=== PATIENT | female | born 1970 | race Caucasian/White ===

== ENCOUNTER 2017-08-19 20:26 | Inpatient (IN) | payer MEDICARE, OTHER ==
[2017-08-19 20:26] VITALS: BMI 37.2
[2017-08-20 00:59] LABS: URINE BILIRUBIN NEGATIVE (NEGATIVE); URINE BLOOD NEGATIVE (NEGATIVE); URINE GLUCOSE (UA) NEGATIVE (NEGATIVE); URINE LEUKOCYTE ESTERASE TRACE Leu/uL (NEGATIVE); URINE NITRATE NEGATIVE (NEGATIVE); URINE PROTEIN 100 mg/dL (<30 mg/dL); URINE UROBILINOGEN 0.2 E.U./dL (<1 E.U./dL)
[2017-08-20 01:00] LABS: BASO # 0.02 K/mm3 (0.0-2.0); BASO % 0.3 % (0.0-3.0); EOS # 0.1 (0.0-0.7); EOS % 0.8 % (1.5-5.0); GRAN # 3.97 (1.4-6.5); GRAN % 55.5 % (50.0-68.0); HEMOGLOBIN 12.8 g/dL (12.0-16.0); LYMPH # 2.7 (1.2-3.4); LYMPH % 37.3 % (22.0-35.0); MEAN CORPUSCULAR HEMOGLOBIN 30.2 pg (25.0-35.0); MEAN CORPUSCULAR HGB CONC 33.2 g/dl (31.0-37.0); MEAN PLATELET VOLUME 10.4 fl (7.0-11.0); MONO # 0.4 (0.1-0.6); MONO % 6.1 % (1.0-6.0); RBC 4.24 10^6/uL (3.5-6.1); RED CELL DISTRIBUTION WIDTH 12.1 % (11.5-14.5); WHITE BLOOD COUNT 7.2 10^3/ul (4.5-11.0)
[2017-08-20 01:05] LABS: URINE APPEARANCE SL CLOUDY (CLEAR); URINE COLOR YELLOW (YELLOW)
[2017-08-20 01:19] LABS: ACETAMINOPHEN < 10.0 ug/ml (10.0-20.0); SALICYLATE < 1 mg/dL (2.0-20.0)
[2017-08-20 01:20] LABS: URINE RBC 0 - 2 /hpf (0-2)
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
[2017-08-20 01:21] LABS: URINE BACTERIA MOD (NEG)
[2017-08-20 01:23] LABS: ALB/GLOB RATIO 1.3 (1.1-1.8); ALT/SGPT 19 U/L (7-56); AST/SGOT 21 U/L (14-36); BLOOD UREA NITROGEN 12 mg/dL (7-21); CALCIUM 9.2 mg/dL (8.4-10.5); GFR AFRICAN-AMERICAN > 60; GFR NON-AFRICAN AMERICAN > 60
[2017-08-20 01:29] LABS: BENZODIAZEPINES, UR NEGATIVE (NEGATIVE)
[2017-08-20 01:34] LABS: BARBITURATES, UR NEGATIVE (NEGATIVE); OPIATES, UR NEGATIVE (NEGATIVE); PHENCYCLIDINE, UR NEGATIVE (NEGATIVE)
[2017-08-20] MEDS ORDERED: Magnesium Hydroxide Susp 30 ml UD PO PRN (03:20)
[2017-08-20] MEDS ORDERED: Alum-Mag Hydrox-Simethicone Susp (30 mL) PO PRN (03:20)
[2017-08-20 04:47] VITALS: O2SAT 99
--- NOTE | 2017-08-20 05:58 | PCM.BM ---
Treatment Plan Problems - Problems identified on initial assessmt Altered thought process Date Initiated: 08/20/17 Time Initiated: 05:00 Assessment reference: NA Status: Active Priority: 2 Hopelessness/Helplessness Date Initiated: 08/20/17 Time Initiated: 05:00 Assessment reference: NA Status: Active Priority: 3 Feelings of Worthlessness Date Initiated: 08/20/17 Time Initiated: 05:00 Assessment reference: NA Status: Active Priority: 4 Anxiety Date Initiated: 08/20/17 Time Initiated: 05:00 Assessment reference: NA Status: Active Priority: 5 Ineffective coping Date Initiated: 08/20/17 Time Initiated: 05:00 Assessment reference: NA Status: Active Priority: 1 Treatment assets and liabiliti Patient Assests: cooperative, self-reliant, ADL independent, good support system , negotiates basic needs Patient Liabilities: live alone, medical problems - Milieu Protocol Maintain good personal hygiene: daily Encourage regular showers, every shift Remind patient to perform daily oral care, every shift Assist patient to perform ADL's Maintain personal safety: every shift Educate patient to report safety concerns to staff, every shift Monitor environment for contraband/sharps Medication safety: Monitor for expected outcome, potential side effects: every shift, Assess barriers to learning: every shift, Assess readiness for medication education: every shift Family Contact Family involvement: Family/SO is involved Family contact: Patient agrees to contact - Goals for Treatment Patient goals for treatment: Relief from burning sensation and reduce swelling of legs/feet. Discharge/Continuing Care - Education Needs Education Needs: Family Medication, Family Diagnosis/Disease Process, Family Coping Skills, Family Health Practices/Safety, Family Aftercare Safety Plan, Patient Medication, Patient Diagnosis/Disease Process, Patient Coping Skills, Patient Anger Management skills, Patient Placement options, Patient Community resources, Patient Activities of Daily Living, Patient Pain, Patient Nutrition, Patient Uses of Medical Equipment, Patient Health Practices/Safety, Patient Personal Hygiene/Grooming, Patient Aftercare Safety Plan, Patient Other - Discharge Discharge Criteria: Tolerates medication w/o severe side effects
[2017-08-20] MEDS: Levothyroxine 50 MCG TAB PO SCH (08:56)
--- NOTE | 2017-08-20 08:58 | RAD ---
HISTORY: PEs eval COMPARISON: Portable chest 02/13/2016. FINDINGS: LUNGS: No active pulmonary disease. PLEURA: No significant pleural effusion identified, no pneumothorax apparent. CARDIOVASCULAR: Normal. OSSEOUS STRUCTURES: No significant abnormalities. VISUALIZED UPPER ABDOMEN: Normal. OTHER FINDINGS: None. IMPRESSION: No interval acute cardiopulmonary disease appreciated.
[2017-08-20 09:48] LABS: GLUCOSE,FASTING 101 mg/dL (65-110); HDL CHOLESTEROL 46 mg/dL (29-60)
--- NOTE | 2017-08-20 09:48 | CARD ---
APPROVED REPORT EKG Measurement Heart [id number] <Conclusion> Normal sinus rhythm Possible Left atrial enlargement Nonspecific T wave abnormality
[2017-08-20 09:58] LABS: LDL CHOLESTEROL 134 mg/dL (0-129)
--- NOTE | 2017-08-21 06:24 | CON ---
DATE: HISTORY OF PRESENT ILLNESS: The patient is 46 years old. States she has not been feeling well lately. Her symptoms have recurred, she claims. She has been taking her medication, but not feeling well. Has been having difficulty in concentration. She states her mind keeps on racing. She states she takes her medication, but it is not working. PAST MEDICAL HISTORY: Significant for 1. Bipolar disorder. 2. History of hypertension. 3. Hyperlipidemia. 4. Hypothyroidism. SOCIAL HISTORY: She lives with her sister. Denies smoking, drinking or alcohol use. ALLERGIES: PATIENT IS ALLERGIC TO BLEACH AND CLOROX THAT GIVE HER RESPIRATORY SYMPTOMS. MEDICATIONS AT HOME: She is on Depakote and Seroquel. She uses Ambien 10 mg at bedtime, Paxil 30 mg daily and levothyroxine 50 mcg daily. REVIEW OF SYSTEMS: Significant for generalized malaise, feeling tired, no energy to do anything. PHYSICAL EXAMINATION: GENERAL: She is awake and alert. Able to communicate. VITAL SIGNS: She is afebrile. Pulse 77, respirations 18, blood pressure 126/93. LUNGS: Bilateral fair airflow. No rhonchi or crackle. HEART: S1, S2 audible. ABDOMEN: Soft, nontender. No rebound, no guarding. NEUROLOGIC: She is awake, alert, oriented. Able to communicate. LABORATORY DATA: WBC is 7.2, hemoglobin 12.8, hematocrit 38.6, platelet 233. Cholesterol 205. LDL is 134. Blood sugar is 120. Urinalysis is unremarkable. Urine tox is negative. RPR is nonreactive. ASSESSMENT: 1. Bipolar disorder. 2. Hypothyroidism. 3. Hyperlipidemia. PLAN: We can resume her Synthroid, psych medication as per psychiatrist. Thank you for consult. We will follow up. John Craig MD
[2017-08-21] MEDS: Levothyroxine 50 MCG TAB PO SCH (09:22)
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
--- NOTE | 2017-08-21 21:29 | PCM.PYCHPN ---
Psychiatric Progress Note - Psychiatric Progress Note Patient seen today, length of contact: 25 Patient Chief Complaint: Depression and disorganized thinking Problems Identified/Issues Discussed: Patient has schizoaffective disorder.oooooooooooooooooo presently upset that his has a greater realization she will be losing her house. o this also lost her job. o still grieving over the loss of her father in March. oooooooooooooooooooooooooooooooooooooooooooooooooooooooooooooooooooooooooooooooo oooooooooooooooooooooooooooooooooooooooooooooooollllllllllllllllllllllllllllllll lllllllllllllllllllllllllllllllllllllllllllllllllloooooooooooooooooooooooooooooo ooooooooo ooooooooooo Medical Problems: Hypothyroidism, hypertension Diagnostic Results: Reviewed her laboratory results from today not available DSM 5 Symptoms Update: Meds anxious, depressed, religiously preoccupied.i yet affect appears to be somewhat brighter than yesterday. Interviewed in treatment team. [id number]iiiiiiiiiiiiiiiiiiiiiiiiiiiiiiiiiiiik Medication Change: No Medical Record Reviewed: Yes Consults ordered or reviewed: Review 8D Mental Status Examination - Cognitive Function Orientation: Person, Place, Situation, Time Memory: Intact Attention: WNL Concentration: Poor Association: WNL Fund of Knowledge: [facility] Decription of patient's judgement and insights: Skewed by her delusional thinkingmmmmmmmmmmmmmmmmmmmmmmmmmmm - Mood Mood: Depressed - Affect Affect: Constricted - Speech Speech: Soft - Formal Thought Process Formal Thought Process: Hallucinations, Delusions, Paranoia Psychotic Thoughts and Behaviors: Has intermittent auditory hallucinations - Suicidal Ideation Plan: vague - Homicidal Ideation Homicidal Ideation: No Goal/Treatment Plan - Goal/Treatment Plan Need for Continued Stay: Remain at risks for inpatient hospitalization, Severe depression anxiety Progress Toward Problem(s) and Goals/Treatment Plan: Affect somewhat brighter today still remains self emersed with delusional thinking - Smoking Cessation Smoking Cessation Initiated: No Reason for not providing: Nonsmoker
--- NOTE | 2017-08-21 21:32 | PCM.BM ---
Treatment Plan Problems - Problems identified on initial assessmt Ineffective coughing Priority: 1 Altered thought process Date Initiated: 08/20/17 Time Initiated: 05:00 Assessment reference: NA Status: Active Priority: 2 Hopelessness/Helplessness Date Initiated: 08/20/17 Time Initiated: 05:00 Assessment reference: NA Status: Active Priority: 3 Feelings of Worthlessness Date Initiated: 08/20/17 Time Initiated: 05:00 Assessment reference: NA Status: Active Priority: 4 Anxiety Date Initiated: 08/20/17 Time Initiated: 05:00 Assessment reference: NA Status: Active Priority: 5 Ineffective coping Date Initiated: 08/20/17 Time Initiated: 05:00 Assessment reference: NA Status: Active Priority: 1 Treatment assets and liabiliti Patient Assests: cooperative, self-reliant, ADL independent, good support system , negotiates basic needs Patient Liabilities: live alone, medical problems - Diagnosis (1) Schizoaffective disorder Status: Acute Interventions: 08/21/17 21:31 * Assess/adjust medications daily and /or as needed * Discuss risks, benefits, side effects and alternatives of medications * See patient on an individual basis 7x/week to assess level of suicidal thoughts * 08/21/17 21:32 jjjjjjjjjjjjjjjjjjjjjjjjjjjjjjjjjjjjjjjjjjjjjjjjjjjjjjjjjjjjjjjjjjjjjjjjjjjjjjjj jjjjjjjjjjjjjjjjjjjjjjjjjjjjjjjjjj jjjjjjjjjjjjjjjjjjjjjjjjjjjjjjjjjjjjjjjjjjjjjjjjjjjjjjjjjjjjjjjjjjjjjjjjjjjjjjjj jjjjjjjjjjjjjjjjjjjjjjjjjjjjjjjjjjjjjjjjjjjjjjjjjjjjjjjjjjjjjjjjjjjjjjjjjjjjjjjj jjjjjjjjjjjjjjjjjjjjjjjjjjjjjjjjjjjjjjjj jjjjjjjjjjjjjjjjjjjjjj (2) Suicidal ideation Status: Acute Interventions: 08/21/17 21:31 jjjjjjjjjjjjjjjjjjjjjjjjjjjjjjjjjjjjjjjjjjj - Milieu Protocol Maintain good personal hygiene: daily Encourage regular showers, every shift Remind patient to perform daily oral care, every shift Assist patient to perform ADL's Maintain personal safety: every shift Educate patient to report safety concerns to staff, every shift Monitor environment for contraband/sharps Medication safety: Monitor for expected outcome, potential side effects: every shift, Assess barriers to learning: every shift, Assess readiness for medication education: every shift Milieu Narrative: Affect somewhat brighter today still remains self emersed with delusional thinking Family Contact Family involvement: Famliy/SO not involved - Goals for Treatment Patient goals for treatment: Relief from burning sensation and reduce swelling of legs/feet. Discharge/Continuing Care - Education Needs Education Needs: Family Medication, Family Diagnosis/Disease Process, Family Coping Skills, Family Health Practices/Safety, Family Aftercare Safety Plan, Patient Medication, Patient Diagnosis/Disease Process, Patient Coping Skills, Patient Anger Management skills, Patient Placement options, Patient Community resources, Patient Activities of Daily Living, Patient Pain, Patient Nutrition, Patient Uses of Medical Equipment, Patient Health Practices/Safety, Patient Personal Hygiene/Grooming, Patient Aftercare Safety Plan, Patient Other - Discharge Discharge Criteria: Tolerates medication w/o severe side effects - Treatment Team Participation Patient/Family/SO Statement: Affect somewhat brighter today still remains self emersed with delusional thinking
[2017-08-22] MEDS: Levothyroxine 50 MCG TAB PO SCH (08:28)
--- NOTE | 2017-08-22 14:12 | PCM.PYCHPN ---
Psychiatric Progress Note - Psychiatric Progress Note Patient seen today, length of contact: 25 Patient Chief Complaint: Depression and disorganized thinking Problems Identified/Issues Discussed: Patient has schizoaffective disorder.oooooooooooooooooo presently upset that his has a greater realization she will be losing her house. o this also lost her job. o still grieving over the loss of her father in March. oooooooooooooooooooooooooooooooooooooooooooooooooooooooooooooooooooooooooooooooo oooooooooooooooooooooooooooooooooooooooooooooooollllllllllllllllllllllllllllllll lllllllllllllllllllllllllllllllllllllllllllllllllloooooooooooooooooooooooooooooo ooooooooo ooooooooooo Medical Problems: Hypothyroidism, hypertension Diagnostic Results: Reviewed her laboratory results from today not available DSM 5 Symptoms Update: Mood and affect appears brighter. Less constricted. Appears less self emersed and less self punitive. Does not appear to be preoccupied with internal/ psychotic thoughts at this moment. Medication Change: No Medical Record Reviewed: Yes Mental Status Examination - Cognitive Function Orientation: Person, Place, Situation, Time Memory: Intact Attention: WNL Concentration: WNL Association: [facility] Fund of Knowledge: [facility] Decription of patient's judgement and insights: Skewed by her delusional thinkingmmmmmmmmmmmmmmmmmmmmmmmmmmm - Mood Mood: Depressed, Neutral - Affect Affect: Constricted - Speech Speech: Soft - Formal Thought Process Formal Thought Process: Hallucinations, Delusions, Paranoia Psychotic Thoughts and Behaviors: Has intermittent auditory hallucinations. On 08/22 appears to be more interactive, less preoccupied internally. Indicates she is thinking of moving into a different apartment. Would like to separate her mother from her sister. Is talking about going back to [place] for a period of time. This seems to be less overwhelmed and more accepting of her present state - Homicidal Ideation Homicidal Ideation: No Goal/Treatment Plan - Goal/Treatment Plan Need for Continued Stay: Remain at risks for inpatient hospitalization, Severe depression anxiety Progress Toward Problem(s) and Goals/Treatment Plan: Affect somewhat brighter today still remains self emersed with delusional thinking On August 22 still appears to be at risk. This self emersed but less so. Is making plans for the future which is a good sign. Is capable of engaging in some spontaneous interaction which is also good.
[2017-08-23] MEDS: Levothyroxine 50 MCG TAB PO SCH (08:57)
--- NOTE | 2017-08-23 09:22 | PCM.PYCHPN ---
Psychiatric Progress Note - Psychiatric Progress Note Patient seen today, length of contact: 25 min Patient Chief Complaint: "feeling okay, good" Problems Identified/Issues Discussed: I reviewed assessment and recent notes. Patient was interviewed at bedside. She appears a little unkempt, guarded and mildly disinterested in my questioning though well-oriented and calm. Patient is well-oriented and reports that she is "feeling okay, good". Responses are goal-directed and relevant to questioning. She denies any new concerns, discomfort or pain. Patient is tolerating her medications and indicates that she slept well. Affect is flat. She doesn't appear to be responding to internal stimuli and she denies hallucinations. Continues to deny SI or HI. Delusions were not elicited during this initial interview. Patient has been in good control on the unit. There were no behavioral issues overnight. Diagnostic Results: Schizoaffective Disorder Medication Change: No Medical Record Reviewed: Yes Mental Status Examination - Cognitive Function Orientation: Person, Place, Situation, Time Memory: Intact Attention: WNL Concentration: WNL Association: WNL Fund of Knowledge: WNL - Mood Mood: Depressed ("feeling okay, good"), Neutral - Affect Affect: Constricted, Flat - Speech Speech: Soft - Formal Thought Process Formal Thought Process: Hallucinations (denies), Delusions, Paranoia - Homicidal Ideation Homicidal Ideation: No Goal/Treatment Plan - Goal/Treatment Plan Need for Continued Stay: Remain at risks for inpatient hospitalization, Severe depression anxiety Progress Toward Problem(s) and Goals/Treatment Plan: c/w current tx and plan No new weekend labs thus far Vitals reviewed and noted below: Selected Entries 08/23/17 07:35 Temperature 97.8 F Pulse Rate 76 Respiratory 20 Rate Blood Pressure 109/64
[2017-08-24] MEDS: Levothyroxine 50 MCG TAB PO SCH (08:50)
--- NOTE | 2017-08-24 11:03 | PCM.PYCHPN ---
Psychiatric Progress Note - Psychiatric Progress Note Patient seen today, length of contact: 25 min Patient Chief Complaint: "feeling okay, good" Problems Identified/Issues Discussed: I reviewed recent notes and interviewed patient at bedside. She appears a little unkempt, guarded and mildly disinterested in my questioning though well- oriented and calm. Patient is well oriented and reports that she is feeling okay , anxiety is down a lot. Responses are goal-directed and relevant to questioning. She denies any new concerns, discomfort or pain. Patient is tolerating her medications and indicates that she slept better last night. Affect is flat. She doesn't appear to be responding to internal stimuli and she denies hallucinations. Continues to deny SI or HI. Delusions were not elicited during this interview. Patient has been in good control. Visible on the unit, watching tv and intermittently social with peers. There were no behavioral issues over the weekend. Diagnostic Results: Schizoaffective Disorder Medication Change: No Medical Record Reviewed: Yes Mental Status Examination - Cognitive Function Orientation: Person, Place, Situation, Time Memory: Intact Attention: WNL Concentration: WNL Association: WNL Fund of Knowledge: WNL - Mood Mood: Depressed ("feeling okay, good"), Neutral - Affect Affect: Constricted, Flat - Speech Speech: Soft - Formal Thought Process Formal Thought Process: Hallucinations (denies), Delusions, Paranoia - Homicidal Ideation Homicidal Ideation: No Goal/Treatment Plan - Goal/Treatment Plan Need for Continued Stay: Remain at risks for inpatient hospitalization, Severe depression anxiety Progress Toward Problem(s) and Goals/Treatment Plan: c/w current tx and plan No new weekend labs thus far Vitals reviewed and noted below: Selected Entries 08/24/17 07:14 Temperature 98.3 F Pulse Rate 79 Respiratory 20 Rate Blood Pressure 123/86
[2017-08-25] MEDS: Levothyroxine 50 MCG TAB PO SCH (09:13)
--- NOTE | 2017-08-25 12:27 | PCM.PYCHPN ---
Psychiatric Progress Note - Psychiatric Progress Note Patient seen today, length of contact: 25 min Patient Chief Complaint: Depression and disorganized thinking Problems Identified/Issues Discussed: Patient has schizoaffective disorder.oooooooooooooooooo presently upset that his has a greater realization she will be losing her house. o this also lost her job. o still grieving over the loss of her father in March. oooooooooooooooooooooooooooooooooooooooooooooooooooooooooooooooooooooooooooooooo oooooooooooooooooooooooooooooooooooooooooooooooollllllllllllllllllllllllllllllll lllllllllllllllllllllllllllllllllllllllllllllllllloooooooooooooooooooooooooooooo ooooo ooooooooooooooo Medical Problems: Hypothyroidism, hypertension Diagnostic Results: Reviewed her laboratory results from today not available DSM 5 Symptoms Update: Mood and affect improving. Patient appears more focused and more interactive at least with me. Seems more spontaneous and less self immersed. Does not appear to be responding to internal stimuli Medication Change: No Medical Record Reviewed: Yes Consults ordered or reviewed: Review 8D Mental Status Examination - Cognitive Function Orientation: Person, Place, Situation, Time Memory: Intact Attention: WNL Concentration: WNL Association: [facility] Fund of Knowledge: WNL - Mood Mood: Depressed ("feeling okay, good"), Neutral - Affect Affect: Constricted, Flat - Speech Speech: Appropriate, Soft - Formal Thought Process Formal Thought Process: Hallucinations (denies), Delusions, Paranoia - Suicidal Ideation Suicidal Ideation: No - Homicidal Ideation Homicidal Ideation: No Goal/Treatment Plan - Goal/Treatment Plan Need for Continued Stay: Remain at risks for inpatient hospitalization, Severe depression anxiety Progress Toward Problem(s) and Goals/Treatment Plan: Affect somewhat brighter today still remains self emersed with delusional thinking On August 22 still appears to be at risk. This self emersed but less so. Is making plans for the future which is a good sign. Is capable of engaging in some spontaneous interaction which is also good. On August appears to be more spontaneous and more interactive.
[2017-08-26] MEDS: Levothyroxine 50 MCG TAB PO SCH (08:50)
--- NOTE | 2017-08-26 16:55 | PN ---
DATE: The patient is a 46-year-old Arabic female with a schizoaffective disorder. Twenty five minutes were spent with the patient. She complains of depression and suicidal ideation. She is dealing with the of her father, homelessness, with her fantasy punctured with regards to the inviolability of her right to live in her home even though she was not paying mortgage or taxes Her medical problems include hypertension, hyperlipidemia, hypothyroidism. There has been no change in her medication at this time. Her medical record including consultations were reviewed. She is oriented to three spheres; her memory is intact as is her attention, concentration, association, fund of knowledge. Her affect has improved and states that she is not depressed and seems to be more spontaneous. Her speech is appropriate and goal directed. She is not overtly psychotic or paranoid at this juncture nor is she suicidal or homicidal. She needs to be in the hospital still because of her depression and anxiety. Her sister opines that she should be on an injectable medication although my sense is that the patient is compliant with her Seroquel 300 mg at bedtime and 150 mg in the morning. I will discuss with sister injectable possibilities of a long-term nature, but with the understanding that the patient will have to improve (I discussed this with the patient who does appear to be improving with this option). What is in question still is where the patient will be living upon her discharge. I anticipate the patient will be ready for discharge at the end of this week Handy Holbrook MD/ PhD
[2017-08-27] MEDS: Levothyroxine 50 MCG TAB PO SCH (08:57)
[2017-08-27] MEDS ORDERED: Home Med 1 UNIT PO SCH ×2 (12:00)
--- NOTE | 2017-08-27 15:46 | PCM.PYCHPN ---
Psychiatric Progress Note - Psychiatric Progress Note Patient seen today, length of contact: 25 min Patient Chief Complaint: Depression and disorganized thinking Problems Identified/Issues Discussed: Patient has schizoaffective disorder.oooooooooooooooooo presently upset that his has a greater realization she will be losing her house. o this also lost her job. o still grieving over the loss of her father in March. oooooooooooooooooooooooooooooooooooooooooooooooooooooooooooooooooooooooooooooooo oooooooooooooooooooooooooooooooooooooooooooooooollllllllllllllllllllllllllllllll lllllllllllllllllllllllllllllllllllllllllllllllllloooooooooooooooooooooooooooooo ooooo ooooooooooooooo Medical Problems: Hypothyroidism, hypertension Diagnostic Results: Reviewed her laboratory results from today not available DSM 5 Symptoms Update: Patient tearful again today dwelling on what she is going to do upon discharge. Speaks about going to live with her mother in [facility] for several months and applying for senior citizen housing in [place] I discussed with sister the advisability of putting patient on long acting depot antipsychotic injectable medication Medication Change: Yes (in preparation for get suspended injections) Medical Record Reviewed: Yes Consults ordered or reviewed: Review 8D Mental Status Examination - Cognitive Function Orientation: Person, Place, Situation, Time Memory: Intact Attention: WNL Concentration: WNL Association: WNL Fund of Knowledge: WNL - Mood Mood: Depressed ("feeling okay, good"), Neutral - Affect Affect: Constricted, Flat - Speech Speech: Appropriate, Soft - Formal Thought Process Formal Thought Process: Hallucinations (denies), Delusions, Paranoia - Suicidal Ideation Suicidal Ideation: No - Homicidal Ideation Homicidal Ideation: No Goal/Treatment Plan - Goal/Treatment Plan Need for Continued Stay: Remain at risks for inpatient hospitalization, Severe depression anxiety Progress Toward Problem(s) and Goals/Treatment Plan: Affect somewhat brighter today still remains self emersed with delusional thinking On August 22 still appears to be at risk. This self emersed but less so. Is making plans for the future which is a good sign. Is capable of engaging in some spontaneous interaction which is also good. On August appears to be more spontaneous and more interactive. On August 27 will start eating in [place] in preparation for Invega Sustenna injections. Patient making preparations for going to [place] for a period of time before seeking senior citizen housing in this country To meet with sister at family meeting tomorrow
[2017-08-28] MEDS ORDERED: INVEGA PO SCH (08:00)
[2017-08-28] MEDS: INVEGA 1.5 MG PO SCH (08:17)
[2017-08-28] MEDS: Levothyroxine 50 MCG TAB PO SCH (08:22)
--- NOTE | 2017-08-28 18:53 | PCM.PYCHPN ---
Psychiatric Progress Note - Psychiatric Progress Note Patient seen today, length of contact: 25 min Patient Chief Complaint: Depression and disorganized thinking Problems Identified/Issues Discussed: Patient has schizoaffective disorder.oooooooooooooooooo presently upset that his has a greater realization she will be losing her house. o this also lost her job. o still grieving over the loss of her father in March. oooooooooooooooooooooooooooooooooooooooooooooooooooooooooooooooooooooooooooooooo oooooooooooooooooooooooooooooooooooooooooooooooollllllllllllllllllllllllllllllll lllllllllllllllllllllllllllllllllllllllllllllllllloooooooooooooooooooooooooooooo ooooo ooooooooooooooo Medical Problems: Hypothyroidism, hypertension Diagnostic Results: Reviewed her laboratory results from today not available DSM 5 Symptoms Update: Alert, oriented to 3 spheres but seems more withdrawn and depressed. Medication Change: No (in preparation for get suspended injections) Medical Record Reviewed: Yes Mental Status Examination - Cognitive Function Orientation: Person, Place, Situation, Time Memory: Intact Attention: WNL Concentration: WNL Association: [facility] Fund of Knowledge: [facility] - Mood Mood: Depressed ("feeling okay, good"), Neutral - Affect Affect: Constricted, Flat - Speech Speech: Appropriate, Soft - Formal Thought Process Formal Thought Process: Hallucinations (denies), Delusions, Paranoia - Suicidal Ideation Suicidal Ideation: No - Homicidal Ideation Homicidal Ideation: No Goal/Treatment Plan - Goal/Treatment Plan Need for Continued Stay: Remain at risks for inpatient hospitalization, Severe depression anxiety Progress Toward Problem(s) and Goals/Treatment Plan: Affect somewhat brighter today still remains self emersed with delusional thinking On August 22 still appears to be at risk. This self emersed but less so. Is making plans for the future which is a good sign. Is capable of engaging in some spontaneous interaction which is also good. On August appears to be more spontaneous and more interactive. On August 27 will start eating in [place] in preparation for Invega Sustenna injections. Patient making preparations for going to [place] for a period of time before seeking senior citizen housing in this country To meet with sister at family meeting tomorrow on August 28 On August 28 by the treatment team with the patient's mother and sister. Patient appears more withdrawn. Reviewed with patient and family her plans for the future which includes going to [place] to live with mother for a period of time. We'll work on securing in [place] since then [facility] and [place] including possibly speaking with her psychiatrist in [facility] Patient appears more withdrawn and depressed today and religiously preoccupied; a symptom that is frequently a harbinger of more problematic behaviors and thoughts to come
[2017-08-29] MEDS: Levothyroxine 50 MCG TAB PO SCH (09:39)
[2017-08-29] MEDS: INVEGA 1.5 MG PO SCH (09:39)
--- NOTE | 2017-08-29 13:42 | PCM.PYCHPN ---
Psychiatric Progress Note - Psychiatric Progress Note Patient seen today, length of contact: 25 min Patient Chief Complaint: Depression and disorganized thinking Problems Identified/Issues Discussed: Patient has schizoaffective disorder.oooooooooooooooooo presently upset that his has a greater realization she will be losing her house. o this also lost her job. o still grieving over the loss of her father in March. oooooooooooooooooooooooooooooooooooooooooooooooooooooooooooooooooooooooooooooooo oooooooooooooooooooooooooooooooooooooooooooooooollllllllllllllllllllllllllllllll lllllllllllllllllllllllllllllllllllllllllllllllllloooooooooooooooooooooooooooooo ooooo ooooooooooooooo Medical Problems: Hypothyroidism, hypertension Diagnostic Results: Reviewed her laboratory results from today not available DSM 5 Symptoms Update: Patient has unfortunately deteriorated mentally. Had become more depressed and withdrawn for the past 2 days, now seems more paranoid, agitated with a greater loss of what and already diminished insight and judgment. Feel some staff are conspiring against her Is worried about a court appearance this Friday for a speeding ticket. He is also concerned that the jig grinder set up operator's office will show up at her home regarding her pending foreclosure I had earlier plan to discharge the patient over this weekend about her deteriorating mental status puts her at greater risk and I am not able to pursue this patient is in the midst of being switched from Seroquel to [place] for an eventual [place] ISMAEL TENS and a injection schedule. However we will increase Seroquel once again as the patient's deterioration seems to be chronologically related to a lowering of her previous Seroquel dosage. Medication Change: Yes (Will transiently increase Seroquel level again as patient is doing poorly w) Medical Record Reviewed: Yes Mental Status Examination - Cognitive Function Orientation: Person, Place, Situation, Time Memory: Intact Attention: WNL Concentration: WNL Association: WNL Fund of Knowledge: WNL Decription of patient's judgement and insights: Patient in much denial - Mood Mood: Depressed ("feeling okay, good"), Neutral - Affect Affect: Constricted, Flat, Depressed - Speech Speech: Appropriate, Soft - Formal Thought Process Formal Thought Process: Hallucinations (denies), Delusions, Paranoia - Suicidal Ideation Suicidal Ideation: No - Homicidal Ideation Homicidal Ideation: No Goal/Treatment Plan - Goal/Treatment Plan Need for Continued Stay: Remain at risks for inpatient hospitalization, Severe depression anxiety Progress Toward Problem(s) and Goals/Treatment Plan: Affect somewhat brighter today still remains self emersed with delusional thinking On August 22 still appears to be at risk. This self emersed but less so. Is making plans for the future which is a good sign. Is capable of engaging in some spontaneous interaction which is also good. On August appears to be more spontaneous and more interactive. On August 27 will start eating in [place] in preparation for Invega Sustenna injections. Patient making preparations for going to [place] for a period of time before seeking senior citizen housing in this country To meet with sister at family meeting tomorrow on August 28 On August 28 by the treatment team with the patient's mother and sister. Patient appears more withdrawn. Reviewed with patient and family her plans for the future which includes going to [place] to live with mother for a period of time. We'll work on securing in [place] since then injections and [place] including possibly speaking with her psychiatrist in [facility] Patient appears more withdrawn and depressed today and religiously preoccupied; a symptom that is frequently a harbinger of more problematic behaviors and thoughts to come On August 29 We'll have to delay pending discharge and once again increase Seroquel while maintaining on in [place] patient's deteriorated with increasing anxiety, depression, paranoia and introversion. Have discussed with delinquency prevention social worker. We'll discuss with sister. Also discussed with covering doctor andrew [facility]
--- NOTE | 2017-08-30 09:14 | PCM.PYCHPN ---
Psychiatric Progress Note - Psychiatric Progress Note Patient seen today, length of contact: 25 min Patient Chief Complaint: "depressed and paranoid" Problems Identified/Issues Discussed: Patient is known to me from interviews last weekend. I reviewed recent notes wihich indicate that discharge was delayed due to deteriorating condition. Specifically patient is demonstrating increase in anxiety, depression, paranoia and introversion. Patient has been difficult on the unit recently. Irritable when she wasn't given extra ambien yesterday. She also provoked conflict when she changed the tv channel in the dayroom. Patient needed Ativan 0.5 mg x1 for agitation last night. I saw patient at bedside. She appears unkempt and guarded. She continues to report depression and anxiety. Denies hallucinations but really "feels" that people are talking about her. She doesn't fear that others are plotting to harm her. Denies belief there are monitoring devices on her. Affect is flat and disengaged. Responses remain relevant to questioning. She denies any new discomfort or pain. Patient is tolerating her medications and indicates that she slept well. She doesn't appear to be responding to internal stimuli and continues to deny SI or HI. Patient remains unpredictable and requires continued inpatient monitoring. Diagnostic Results: Schizoaffective Disorder Medication Change: Yes (Will transiently increase Seroquel level again as patient is doing poorly w) Medical Record Reviewed: Yes Mental Status Examination - Cognitive Function Orientation: Person, Place, Situation, Time Memory: Intact Attention: WNL Concentration: WNL Association: [facility] Fund of Knowledge: [facility] - Mood Mood: Depressed ("depressed and paranoid"), Neutral - Affect Affect: Constricted, Flat, Depressed, Other (labile) - Speech Speech: Appropriate, Soft - Formal Thought Process Formal Thought Process: Hallucinations (denies), Delusions, Paranoia - Suicidal Ideation Suicidal Ideation: No - Homicidal Ideation Homicidal Ideation: No Goal/Treatment Plan - Goal/Treatment Plan Need for Continued Stay: Remain at risks for inpatient hospitalization, Severe depression anxiety Progress Toward Problem(s) and Goals/Treatment Plan: c/w current tx and plan No new weekend labs thus far Vitals reviewed and noted below: Selected Entries 08/30/17 08:09 Temperature 98.3 F Pulse Rate 67 Respiratory 18 Rate Blood Pressure 111/67
[2017-08-30] MEDS: Levothyroxine 50 MCG TAB PO SCH (09:17)
[2017-08-30] MEDS: INVEGA 1.5 MG PO SCH (09:22)
[2017-08-31] MEDS: Levothyroxine 50 MCG TAB PO SCH (08:44)
[2017-08-31] MEDS: INVEGA 1.5 MG PO SCH ×2 (08:46→15:22)
--- NOTE | 2017-08-31 09:09 | PCM.PYCHPN ---
Psychiatric Progress Note - Psychiatric Progress Note Patient seen today, length of contact: 25 min Patient Chief Complaint: She continues to report depression but "feels positive I guess" Problems Identified/Issues Discussed: Patient is known to me from interviews last weekend. I reviewed recent notes which indicate that discharge was delayed due to deteriorating condition. Specifically patient was demonstrating increase in anxiety, depression, paranoia and introversion over the prior week. This weekend patient has been reclusive and irritable on the unit. Unhappy when she wasn't given extra ambien on Friday. She also provoked conflict when she changed the tv channel in the dayroom. Patient needed Ativan 0.5 mg x1 for agitation that night. Staff notes also indicate that patient only briefly attends groups. She provides minimal input and does not interact with peers I saw patient at bedside this morning. She appears unkempt and guarded. She continues to report depression but "feels positive I guess". Denies hallucinations "that was a few days ago" but still believes people are talking about her. Patient seems less focused on her paranoia today. She denies belief that she is being monitored or that others are plotting to harm her. Affect is flat and disengaged. Responses remain relevant to questioning. Patient denies any new discomfort or pain. Patient is tolerating her medications and indicates that she slept well last night. She doesn't appear to be responding to internal stimuli and continues to deny SI or HI. Patient remains unpredictable and requires continued inpatient monitoring. Diagnostic Results: Schizoaffective Disorder Medication Change: Yes (Will transiently increase Seroquel level again as patient is doing poorly w) Medical Record Reviewed: Yes Mental Status Examination - Cognitive Function Orientation: Person, Place, Situation, Time Memory: Intact Attention: WNL Concentration: WNL Association: [facility] Fund of Knowledge: [facility] - Mood Mood: Depressed ( She continues to report depression but "feels positive I guess "), Neutral - Affect Affect: Constricted, Flat, Depressed, Other (labile) - Speech Speech: Appropriate, Soft - Formal Thought Process Formal Thought Process: Hallucinations (denied this weekend), Delusions, Paranoia - Suicidal Ideation Suicidal Ideation: No - Homicidal Ideation Homicidal Ideation: No Goal/Treatment Plan - Goal/Treatment Plan Need for Continued Stay: Remain at risks for inpatient hospitalization, Severe depression anxiety Progress Toward Problem(s) and Goals/Treatment Plan: c/w current tx and plan No new weekend labs Vitals reviewed and noted below: Selected Entries 08/31/17 07:38 Temperature 98.2 F Pulse Rate 68 Respiratory 20 Rate Blood Pressure 99/62 L
[2017-09-01] MEDS: Levothyroxine 50 MCG TAB PO SCH (09:12)
[2017-09-01] MEDS: INVEGA 1.5 MG PO SCH (09:13)
--- NOTE | 2017-09-01 16:49 | PCM.BM ---
<Juliette Schofieldda - Last Filed: 09/01/17 16:46> Treatment Plan Problems - Problems identified on initial assessmt Ineffective coughing Priority: 1 Comment: pt gets anxious when se thinks of her house foreclosure Altered thought process Date Initiated: 08/20/17 Time Initiated: 05:00 Assessment reference: NA Status: Active Priority: 2 Comment: thoughts is improving ,.denies s/v hallucination Hopelessness/Helplessness Date Initiated: 08/20/17 Time Initiated: 05:00 Assessment reference: NA Status: Active Priority: 3 Comment: denies Feelings of Worthlessness Date Initiated: 08/20/17 Time Initiated: 05:00 Assessment reference: NA Status: Active Priority: 4 Anxiety Date Initiated: 08/20/17 Time Initiated: 05:00 Assessment reference: NA Status: Active Priority: 5 Ineffective coping Date Initiated: 08/20/17 Time Initiated: 05:00 Assessment reference: NA Status: Active Priority: 1 Treatment assets and liabiliti Patient Assests: cooperative, self-reliant, ADL independent, good support system , negotiates basic needs Patient Liabilities: live alone, medical problems - Milieu Protocol Maintain good personal hygiene: daily Encourage regular showers, every shift Remind patient to perform daily oral care, every shift Assist patient to perform ADL's Maintain personal safety: every shift Educate patient to report safety concerns to staff, every shift Monitor environment for contraband/sharps Medication safety: Monitor for expected outcome, potential side effects: every shift, Assess barriers to learning: every shift, Assess readiness for medication education: every shift Milieu Narrative: c/w current tx and plan No new weekend labs Vitals reviewed and noted below: Selected Entries 08/31/17 07:38 Temperature 98.2 F Pulse Rate 68 Respiratory 20 Rate Blood Pressure 99/62 L Family Contact Family involvement: Famliy/SO not involved - Goals for Treatment Patient goals for treatment: Relief from burning sensation and reduce swelling of legs/feet. Discharge/Continuing Care - Education Needs Education Needs: Family Medication, Family Diagnosis/Disease Process, Family Coping Skills, Family Health Practices/Safety, Family Aftercare Safety Plan, Patient Medication, Patient Diagnosis/Disease Process, Patient Coping Skills, Patient Anger Management skills, Patient Placement options, Patient Community resources, Patient Activities of Daily Living, Patient Pain, Patient Nutrition, Patient Uses of Medical Equipment, Patient Health Practices/Safety, Patient Personal Hygiene/Grooming, Patient Aftercare Safety Plan, Patient Other - Discharge Discharge Criteria: Tolerates medication w/o severe side effects - Treatment Team Participation Patient/Family/SO Statement: c/w current tx and plan No new weekend labs Vitals reviewed and noted below: Selected Entries 08/31/17 07:38 Temperature 98.2 F Pulse Rate 68 Respiratory 20 Rate Blood Pressure 99/62 L Treatment Plan Review - Problem Altered thought process Time Initiated: 05:00 Hopelessness/Helplessness Time Initiated: 05:00 Feelings of Worthlessness Time Initiated: 05:00 Anxiety Time Initiated: 05:00 Ineffective coping Time Initiated: 05:00 <Haritha Padgett A - Last Filed: 09/01/17 18:11> - Diagnosis (1) Schizoaffective disorder Status: Acute Interventions: 08/21/17 21:31 * Assess/adjust medications daily and /or as needed * Discuss risks, benefits, side effects and alternatives of medications * See patient on an individual basis 7x/week to assess level of suicidal thoughts * 08/21/17 21:32 jjjjjjjjjjjjjjjjjjjjjjjjjjjjjjjjjjjjjjjjjjjjjjjjjjjjjjjjjjjjjjjjjjjjjjjjjjjjjjjj jjjjjjjjjjjjjjjjjjjjjjjjjjjjjjjjj jjjjjjjjjjjjjjjjjjjjjjjjjjjjjjjjjjjjjjjjjjjjjjjjjjjjjjjjjjjjjjjjjjjjjjjjjjjjjjjj jjjjjjjjjjjjjjjjjjjjjjjjjjjjjjjjjjjjjjjjjjjjjjjjjjjjjjjjjjjjjjjjjjjjjjjjjjjjjjjj jjjjjjjjjjjjjjjjjjjjjjjjjjjjjjjjjjjjjjjj jjjjjjjjjjjjjjjjjjjjjjj 09/01/17 18:11 Psychoeducation/ supportive therapy Psychopharmacology/adjustment of medications as needed/ monitoring possible side effects Evaluate pt on daily basis Compliance with medications and follow up appointments Long acting medication if pt is noncompliant with pill form Suicide and homicide risk assessment and prevention, coping strategies, safety plan Relapse prevention Reduction of symptoms Improve functional status Possible assertive community treatment Cognitive behavioral therapy Family involvement Possible social skill training as outpatient <Adriana Zazueta - Last Filed: 09/02/17 08:14> Family Contact Family involvement: Family/SO is involved Family contact: Patient agrees to contact Family contact name: Magy Hinojosa(sister) Family contacted how many times per week?: 2 <Rosa Allen - Last Filed: 09/03/17 12:19>
--- NOTE | 2017-09-01 16:52 | PCM.PYCHPN ---
Psychiatric Progress Note - Psychiatric Progress Note Patient seen today, length of contact: 30min Patient Chief Complaint: "I am doing better, I don't hear voices, I don't think Invega was a good choice for me" Problems Identified/Issues Discussed: Suicide/ homicide prevention, past psychiatric h/o, current psychiatric symptoms , medical problems, risk/benefits and alternatives of medications, medications compliance, coping strategies, substance abuse h/o, relapse prevention, importance of follow up with psychiatrist and therapist, discharge plan. Medical Problems: hyperlipidemia hypothyroidism Diagnostic Results: 08/20/17 00:22 08/20/17 00:22 Lab Results 08/20/17 09:51: POC Glucose (mg/dL) 120 H 08/20/17 09:00: RPR Nonreactive 08/20/17 09:00: TSH 3rd Generation 2.00 08/20/17 09:00: Fasting Glucose 101, Triglycerides 184 H, Cholesterol 205 H, LDL Cholesterol Direct 134 H, HDL Cholesterol 46 08/20/17 00:22: Urine HCG, Qual Negative 08/20/17 00:22: Alcohol, Quantitative < 10 08/20/17 00:22: Salicylates < 1 L, Acetaminophen < 10.0 L 08/20/17 00:22: Urine Opiates Screen Negative, Urine Methadone Screen Negative, Ur Barbiturates Screen Negative, Ur Phencyclidine Scrn Negative, Ur Amphetamines Screen Negative, U Benzodiazepines Scrn Negative, U Oth Cocaine Metabols Negative, U Cannabinoids Screen Negative 08/20/17 00:22: Sodium 140, Potassium 3.7, Chloride 104, Carbon Dioxide 24, Anion Gap 16, BUN 12, Creatinine 0.6 L, Est GFR ( Amer) > 60, Est GFR ( Non-Af Amer) > 60, Random Glucose 93, Calcium 9.2, Total Bilirubin 0.5, AST 21, ALT 19, Alkaline Phosphatase 60, Total Protein 7.0, Albumin 4.0, Globulin 3.0, Albumin/Globulin Ratio 1.3 08/20/17 00:22: Urine Color Yellow, Urine Appearance Sl cloudy, Urine pH 6.0, Ur Specific [place] >= 1.030, Urine Protein 100 H, Urine Glucose (UA) Negative, Urine Ketones Negative, Urine Blood Negative, Urine Nitrate Negative, Urine Bilirubin Negative, Urine Urobilinogen 0.2, Ur Leukocyte Esterase Trace H, Urine RBC 0 - 2, Urine WBC 2 - 5, Ur Epithelial Cells 4 - 5, Urine Bacteria Mod 08/20/17 00:22: WBC 7.2, RBC 4.24, Hgb 12.8, Hct 38.6, MCV 91.0, MCH 30.2, MCHC 33.2, RDW 12.1, Plt Count 233, MPV 10.4, Gran % 55.5, Lymph % (Auto) 37.3 H, [place] % (Auto) 6.1 H, Eos % (Auto) 0.8 L, Baso % (Auto) 0.3, Gran # 3.97, Lymph # (Auto) 2.7, [place] # (Auto) 0.4, Eos # (Auto) 0.1, Baso # (Auto) 0.02 Vital Signs Temp Pulse Pulse Resp BP Pulse Ox 09/01/17 09:12 65 123/77 09/01/17 07:15 98.4 F 65 20 123/77 08/31/17 21:36 75 125/86 08/31/17 08:14 68 99/67 L 08/31/17 07:38 98.2 F 68 20 99/62 L 08/30/17 15:00 72 102/67 08/30/17 09:18 67 111/67 08/30/17 08:09 98.3 F 67 18 111/67 08/29/17 18:29 104 H 110/80 08/29/17 15:48 72 157/110 H 08/29/17 15:00 72 157/110 H 08/29/17 07:33 98.1 F 65 20 103/63 08/28/17 16:00 84 133/90 08/28/17 06:37 98.0 F 62 20 129/86 08/27/17 15:43 75 120/90 08/27/17 07:10 97.7 F 58 L 20 118/76 08/26/17 15:49 74 140/94 H 08/26/17 07:15 97.9 F 64 20 122/78 08/25/17 16:42 72 120/87 08/25/17 07:05 97.9 F 60 18 117/74 08/24/17 16:00 69 144/95 H 08/24/17 07:14 98.3 F 79 20 123/86 08/23/17 16:00 68 121/88 08/23/17 07:35 97.8 F 76 20 109/64 08/22/17 20:59 103 H 140/95 H 08/22/17 07:19 98.1 F 57 L 20 112/66 08/21/17 16:00 66 125/87 08/21/17 07:10 97.9 F 66 20 118/75 08/20/17 16:00 86 126/93 H 08/20/17 07:29 98.8 F 77 18 134/97 H 08/20/17 07:16 98.8 F 77 20 134/97 H 08/20/17 05:30 98.8 F 77 77 20 134/97 H 08/20/17 03:00 76 18 134/76 99 08/20/17 01:00 74 17 126/74 100 08/19/17 23:00 74 16 128/74 99 08/19/17 21:04 98.6 F 71 16 130/88 96 DSM 5 Symptoms Update: covering for : shortly pt is 46yo female with reported h/o schizoaffective disorder, multiple psych admissions in the past, pt was admitted for evaluation of psychotic symptoms. pt is known to this screen writer because of this prolonged hospitalization. last week pt approached this screen writer and said "I know you, you are ", this screen writer educated pt that it is not true, but pt was convinced. as per report from RNs and SW, pt was disorganized and psychotic, irritable, angry. pt was seen today at the treatment team meeting, pt presented to be less angry, was able to provide history. 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 pt said she feels "invega is not working for me, I want to go back on seroquel". pt seems to be tolerating seroquel better. pt was willing to complete her treatment. pt tolerated meds well, no side effects observed or reported, AIMS0, no EPS. Diagnostic Results: Schizoaffective Disorder Medication Change: Yes (seroquel increased) Medical Record Reviewed: Yes Consults ordered or reviewed: medical consult appreciated Mental Status Examination - Cognitive Function Orientation: Person, Place, Situation, Time Memory: Intact Attention: WNL Concentration: WNL Association: WNL Fund of Knowledge: WNL - Mood Mood: Depressed ("I am not that bad"), Neutral - Affect Affect: Constricted, Flat, Depressed, Other (labile) - Speech Speech: Appropriate, Soft - Formal Thought Process Formal Thought Process: Hallucinations (denied this weekend), Delusions, Paranoia - Suicidal Ideation Suicidal Ideation: No - Homicidal Ideation Homicidal Ideation: No Goal/Treatment Plan - Goal/Treatment Plan Need for Continued Stay: Remain at risks for inpatient hospitalization, Severe depression anxiety Progress Toward Problem(s) and Goals/Treatment Plan: Milieu/structure/supportive therapy Medical consult appreciated, see medical team note for more detailed info SW consultation for discharge plan and social issues Med management invega d/c seroquel increased 300mg po amhs for psychosis and mood stabilization paxil 30mg po hs for depression and anxiety Family involvement, sister involved Follow up on labs Will monitor closely Pt was educated about risk/benefits and alternatives of medications, coping strategies (safety plan, suicide prevention), relapse prevention, importance of follow up with psychiatrist and therapist, stay away from drugs/alcohol/smoking Estimated Date of D/C: 09/03/17
--- NOTE | 2017-09-01 18:22 | PN ---
DATE: SUBJECTIVE: The patient is 46 years old, seen and examined, seems to be depressed, sleepy, but arousable. Complains of feeling anxious, has been irritable, anxious at time. PHYSICAL EXAMINATION: GENERAL: She is awake, alert, oriented, communicative. VITAL SIGNS: She is afebrile, pulse 65, respirations 20, blood pressure 123/77. LUNGS: Bilateral good airflow. No rhonchi or crackle. HEART: S1 and S2 audible. ABDOMEN: Soft, nontender. No rebound, no guarding. NEUROLOGICAL: She is awake and alert, but agitated at times. ASSESSMENT: 1. Hypertension. 2. Anxiety disorder. 3. Hypothyroidism. 4. Borderline hyperlipidemia. PLAN: Currently, the patient is on losartan. We will continue that. She is on levothyroxine, that will be maintained and I will follow up this patient with you. Thanks for the consult. John Craig MD
[2017-09-02] MEDS: Levothyroxine 50 MCG TAB PO SCH (09:18)
--- NOTE | 2017-09-02 17:33 | PCM.PYCHPN ---
Psychiatric Progress Note - Psychiatric Progress Note Patient seen today, length of contact: 30min Patient Chief Complaint: "I am afraid that people will be talking about me, I am very anxious/scared" Problems Identified/Issues Discussed: Suicide/ homicide prevention, past psychiatric h/o, current psychiatric symptoms , medical problems, risk/benefits and alternatives of medications, medications compliance, coping strategies, substance abuse h/o, relapse prevention, importance of follow up with psychiatrist and therapist, discharge plan. Medical Problems: hyperlipidemia hypothyroidism Diagnostic Results: 08/20/17 00:22 08/20/17 00:22 Lab Results 08/20/17 09:51: POC Glucose (mg/dL) 120 H 08/20/17 09:00: RPR Nonreactive 08/20/17 09:00: TSH 3rd Generation 2.00 08/20/17 09:00: Fasting Glucose 101, Triglycerides 184 H, Cholesterol 205 H, LDL Cholesterol Direct 134 H, HDL Cholesterol 46 08/20/17 00:22: Urine HCG, Qual Negative 08/20/17 00:22: Alcohol, Quantitative < 10 08/20/17 00:22: Salicylates < 1 L, Acetaminophen < 10.0 L 08/20/17 00:22: Urine Opiates Screen Negative, Urine Methadone Screen Negative, Ur Barbiturates Screen Negative, Ur Phencyclidine Scrn Negative, Ur Amphetamines Screen Negative, U Benzodiazepines Scrn Negative, U Oth Cocaine Metabols Negative, U Cannabinoids Screen Negative 08/20/17 00:22: Sodium 140, Potassium 3.7, Chloride 104, Carbon Dioxide 24, Anion Gap 16, BUN 12, Creatinine 0.6 L, Est GFR ( Amer) > 60, Est GFR ( Non-Af Amer) > 60, Random Glucose 93, Calcium 9.2, Total Bilirubin 0.5, AST 21, ALT 19, Alkaline Phosphatase 60, Total Protein 7.0, Albumin 4.0, Globulin 3.0, Albumin/Globulin Ratio 1.3 08/20/17 00:22: Urine Color Yellow, Urine Appearance Sl cloudy, Urine pH 6.0, Ur Specific [place] >= 1.030, Urine Protein 100 H, Urine Glucose (UA) Negative, Urine Ketones Negative, Urine Blood Negative, Urine Nitrate Negative, Urine Bilirubin Negative, Urine Urobilinogen 0.2, Ur Leukocyte Esterase Trace H, Urine RBC 0 - 2, Urine WBC 2 - 5, Ur Epithelial Cells 4 - 5, Urine Bacteria Mod 08/20/17 00:22: WBC 7.2, RBC 4.24, Hgb 12.8, Hct 38.6, MCV 91.0, MCH 30.2, MCHC 33.2, RDW 12.1, Plt Count 233, MPV 10.4, Gran % 55.5, Lymph % (Auto) 37.3 H, [place] % (Auto) 6.1 H, Eos % (Auto) 0.8 L, Baso % (Auto) 0.3, Gran # 3.97, Lymph # (Auto) 2.7, [place] # (Auto) 0.4, Eos # (Auto) 0.1, Baso # (Auto) 0.02 Vital Signs Temp Pulse Pulse Resp BP Pulse Ox 09/01/17 09:12 65 123/77 09/01/17 07:15 98.4 F 65 20 123/77 08/31/17 21:36 75 125/86 08/31/17 08:14 68 99/67 L 08/31/17 07:38 98.2 F 68 20 99/62 L 08/30/17 15:00 72 102/67 08/30/17 09:18 67 111/67 08/30/17 08:09 98.3 F 67 18 111/67 08/29/17 18:29 104 H 110/80 08/29/17 15:48 72 157/110 H 08/29/17 15:00 72 157/110 H 08/29/17 07:33 98.1 F 65 20 103/63 08/28/17 16:00 84 133/90 08/28/17 06:37 98.0 F 62 20 129/86 08/27/17 15:43 75 120/90 08/27/17 07:10 97.7 F 58 L 20 118/76 08/26/17 15:49 74 140/94 H 08/26/17 07:15 97.9 F 64 20 122/78 08/25/17 16:42 72 120/87 08/25/17 07:05 97.9 F 60 18 117/74 08/24/17 16:00 69 144/95 H 08/24/17 07:14 98.3 F 79 20 123/86 08/23/17 16:00 68 121/88 08/23/17 07:35 97.8 F 76 20 109/64 08/22/17 20:59 103 H 140/95 H 08/22/17 07:19 98.1 F 57 L 20 112/66 08/21/17 16:00 66 125/87 08/21/17 07:10 97.9 F 66 20 118/75 08/20/17 16:00 86 126/93 H 08/20/17 07:29 98.8 F 77 18 134/97 H 08/20/17 07:16 98.8 F 77 20 134/97 H 08/20/17 05:30 98.8 F 77 77 20 134/97 H 08/20/17 03:00 76 18 134/76 99 08/20/17 01:00 74 17 126/74 100 08/19/17 23:00 74 16 128/74 99 08/19/17 21:04 98.6 F 71 16 130/88 96 DSM 5 Symptoms Update: covering for : shortly pt is 46yo female with reported h/o schizoaffective disorder, multiple psych admissions in the past, pt was admitted for evaluation of psychotic symptoms. pt was seen today at the treatment team meeting room today, pt said that she is afraid that others will be thinking that she is a failure, pt appears to be anxious, guarded, paranoid, restless. pt willing to take benzos very minimal dose. pt denies hearing voices or seeing things but guarded, paranois. pt was willing to complete her treatment. pt tolerated meds well, no side effects observed or reported, AIMS0, no EPS. Diagnostic Results: Schizoaffective Disorder Medication Change: Yes (seroquel increased) Medical Record Reviewed: Yes Mental Status Examination - Cognitive Function Orientation: Person, Place, Situation, Time Memory: Intact Attention: WNL Concentration: WNL Association: WNL Fund of Knowledge: WNL - Mood Mood: Depressed ("I am not that bad"), Neutral - Affect Affect: Constricted, Flat, Depressed, Other (labile) - Speech Speech: Appropriate, Soft - Formal Thought Process Formal Thought Process: Hallucinations (denied ), Delusions, Paranoia - Suicidal Ideation Suicidal Ideation: No - Homicidal Ideation Homicidal Ideation: No Goal/Treatment Plan - Goal/Treatment Plan Need for Continued Stay: Remain at risks for inpatient hospitalization, Severe depression anxiety Progress Toward Problem(s) and Goals/Treatment Plan: Milieu/structure/supportive therapy Medical consult appreciated, see medical team note for more detailed info SW consultation for discharge plan and social issues Med management seroquel 300mg po amhs for psychosis and mood stabilization paxil 40mg po hs for depression and anxiety klonopin 0.25mg po bid for anxiety Family involvement, sister involved Follow up on labs Will monitor closely Pt was educated about risk/benefits and alternatives of medications, coping strategies (safety plan, suicide prevention), relapse prevention, importance of follow up with psychiatrist and therapist, stay away from drugs/alcohol/smoking Estimated Date of D/C: 09/03/17
[2017-09-03 07:05] VITALS: RESP 20
[2017-09-03] MEDS: Levothyroxine 50 MCG TAB PO SCH (09:01)
--- NOTE | 2017-09-03 14:32 | PCM.PYCHPN ---
Psychiatric Progress Note - Psychiatric Progress Note Patient seen today, length of contact: 30min Patient Chief Complaint: "I am doing better..." Problems Identified/Issues Discussed: Suicide/ homicide prevention, past psychiatric h/o, current psychiatric symptoms , medical problems, risk/benefits and alternatives of medications, medications compliance, coping strategies, substance abuse h/o, relapse prevention, importance of follow up with psychiatrist and therapist, discharge plan. Medical Problems: hyperlipidemia hypothyroidism Diagnostic Results: 08/20/17 00:22 08/20/17 00:22 Lab Results 08/20/17 09:51: POC Glucose (mg/dL) 120 H 08/20/17 09:00: RPR Nonreactive 08/20/17 09:00: TSH 3rd Generation 2.00 08/20/17 09:00: Fasting Glucose 101, Triglycerides 184 H, Cholesterol 205 H, LDL Cholesterol Direct 134 H, HDL Cholesterol 46 08/20/17 00:22: Urine HCG, Qual Negative 08/20/17 00:22: Alcohol, Quantitative < 10 08/20/17 00:22: Salicylates < 1 L, Acetaminophen < 10.0 L 08/20/17 00:22: Urine Opiates Screen Negative, Urine Methadone Screen Negative, Ur Barbiturates Screen Negative, Ur Phencyclidine Scrn Negative, Ur Amphetamines Screen Negative, U Benzodiazepines Scrn Negative, U Oth Cocaine Metabols Negative, U Cannabinoids Screen Negative 08/20/17 00:22: Sodium 140, Potassium 3.7, Chloride 104, Carbon Dioxide 24, Anion Gap 16, BUN 12, Creatinine 0.6 L, Est GFR ( Amer) > 60, Est GFR ( Non-Af Amer) > 60, Random Glucose 93, Calcium 9.2, Total Bilirubin 0.5, AST 21, ALT 19, Alkaline Phosphatase 60, Total Protein 7.0, Albumin 4.0, Globulin 3.0, Albumin/Globulin Ratio 1.3 08/20/17 00:22: Urine Color Yellow, Urine Appearance Sl cloudy, Urine pH 6.0, Ur Specific [place] >= 1.030, Urine Protein 100 H, Urine Glucose (UA) Negative, Urine Ketones Negative, Urine Blood Negative, Urine Nitrate Negative, Urine Bilirubin Negative, Urine Urobilinogen 0.2, Ur Leukocyte Esterase Trace H, Urine RBC 0 - 2, Urine WBC 2 - 5, Ur Epithelial Cells 4 - 5, Urine Bacteria Mod 08/20/17 00:22: WBC 7.2, RBC 4.24, Hgb 12.8, Hct 38.6, MCV 91.0, MCH 30.2, MCHC 33.2, RDW 12.1, Plt Count 233, MPV 10.4, Gran % 55.5, Lymph % (Auto) 37.3 H, [place] % (Auto) 6.1 H, Eos % (Auto) 0.8 L, Baso % (Auto) 0.3, Gran # 3.97, Lymph # (Auto) 2.7, [place] # (Auto) 0.4, Eos # (Auto) 0.1, Baso # (Auto) 0.02 Vital Signs Temp Pulse Pulse Resp BP Pulse Ox 09/01/17 09:12 65 123/77 09/01/17 07:15 98.4 F 65 20 123/77 08/31/17 21:36 75 125/86 08/31/17 08:14 68 99/67 L 08/31/17 07:38 98.2 F 68 20 99/62 L 08/30/17 15:00 72 102/67 08/30/17 09:18 67 111/67 08/30/17 08:09 98.3 F 67 18 111/67 08/29/17 18:29 104 H 110/80 08/29/17 15:48 72 157/110 H 08/29/17 15:00 72 157/110 H 08/29/17 07:33 98.1 F 65 20 103/63 08/28/17 16:00 84 133/90 08/28/17 06:37 98.0 F 62 20 129/86 08/27/17 15:43 75 120/90 08/27/17 07:10 97.7 F 58 L 20 118/76 08/26/17 15:49 74 140/94 H 08/26/17 07:15 97.9 F 64 20 122/78 08/25/17 16:42 72 120/87 08/25/17 07:05 97.9 F 60 18 117/74 08/24/17 16:00 69 144/95 H 08/24/17 07:14 98.3 F 79 20 123/86 08/23/17 16:00 68 121/88 08/23/17 07:35 97.8 F 76 20 109/64 08/22/17 20:59 103 H 140/95 H 08/22/17 07:19 98.1 F 57 L 20 112/66 08/21/17 16:00 66 125/87 08/21/17 07:10 97.9 F 66 20 118/75 08/20/17 16:00 86 126/93 H 08/20/17 07:29 98.8 F 77 18 134/97 H 08/20/17 07:16 98.8 F 77 20 134/97 H 08/20/17 05:30 98.8 F 77 77 20 134/97 H 08/20/17 03:00 76 18 134/76 99 08/20/17 01:00 74 17 126/74 100 08/19/17 23:00 74 16 128/74 99 08/19/17 21:04 98.6 F 71 16 130/88 96 DSM 5 Symptoms Update: covering for : shortly pt is 46yo female with reported h/o schizoaffective disorder, multiple psych admissions in the past, pt was admitted for evaluation of psychotic symptoms. pt was seen today at the treatment team room, pt said she feels better, less anxious, sleeps better, pt denied v/a/t hallucinations, pt appears well groomed , pleasant, as per staff pt is stay away from problematic patients in the unit. paranoia much improved, pt does not appear to be angry or agitated, thought process is better organized. pt tolerated meds well, no side effects observed or reported, AIMS0, no EPS. Diagnostic Results: Schizoaffective Disorder Medication Change: Yes (seroquel increased) Medical Record Reviewed: Yes Consults ordered or reviewed: medical consult appreciated Mental Status Examination - Cognitive Function Orientation: Person, Place, Situation, Time Memory: Intact Attention: WNL Concentration: WNL Association: WNL Fund of Knowledge: WNL - Mood Mood: Depressed ("I am not that bad"), Neutral - Affect Affect: Constricted, Flat, Depressed, Other (labile) - Speech Speech: Appropriate, Soft - Formal Thought Process Formal Thought Process: Hallucinations (denied ), Delusions (denied), Paranoia ( denied) - Suicidal Ideation Suicidal Ideation: No - Homicidal Ideation Homicidal Ideation: No Goal/Treatment Plan - Goal/Treatment Plan Need for Continued Stay: Remain at risks for inpatient hospitalization, Severe depression anxiety Progress Toward Problem(s) and Goals/Treatment Plan: Milieu/structure/supportive therapy Medical consult appreciated, see medical team note for more detailed info SW consultation for discharge plan and social issues Med management seroquel 300mg po amhs for psychosis and mood stabilization paxil 40mg po hs for depression and anxiety klonopin 0.25mg po bid for anxiety Family involvement, sister Follow up on labs Will monitor closely Pt was educated about risk/benefits and alternatives of medications, coping strategies (safety plan, suicide prevention), relapse prevention, importance of follow up with psychiatrist and therapist, stay away from drugs/alcohol/smoking Estimated Date of D/C: 09/04/17
[2017-09-04 07:04] VITALS: PULSE 59; TEMP 97.7
[2017-09-04] MEDS: Levothyroxine 50 MCG TAB PO SCH (08:43)
[2017-09-04 08:46] VITALS: BP 138/83
--- NOTE | 2017-09-04 14:39 | PCM.PYCHDC ---
Mental Status Examination - Mental Status Examination Orientation: Person, Place, Situation, Time Memory: Intact Mood: Neutral Affect: Constricted (but reactive, mood congruent) Speech: Appropriate Attention: WNL (much improved) Concentration: WNL (much improved) Formal Thought Process: Paranoia (mild paranoia, which seems to be residual) Description of patient's judgement and insight: Pt has improved insight into mental and medical illness, pt was compliant with medications and unit rules and regulations, pt was going to groups, was calm, cooperative, socially appropriate, no behavioral incidents, no agitation, no aggression. Psychotic Thoughts and Behaviors: Pt denied v/a/t hallucinations, denied paranoid ideations, pt does not appear to be psychotic, and thought process is goal directed. Suicidal Ideation: No Current Homicidal Ideation?: No Plan: pt adamantly denied thoughts of harming self or others denied intent or plan. Discharge Summary - Discharge Note Reason for Hospitalization: worsening of psychosis, paranoia, inability to function. Psychiatric History (includes Medical, Family, Personal Hx): patient has schizoaffective disorder, multiple psychiatric admissions Laboratory Data: 08/20/17 00:22 08/20/17 00:22 Lab Results 08/20/17 09:51: POC Glucose (mg/dL) 120 H 08/20/17 09:00: RPR Nonreactive 08/20/17 09:00: TSH 3rd Generation 2.00 08/20/17 09:00: Fasting Glucose 101, Triglycerides 184 H, Cholesterol 205 H, LDL Cholesterol Direct 134 H, HDL Cholesterol 46 08/20/17 00:22: Urine HCG, Qual Negative 08/20/17 00:22: Alcohol, Quantitative < 10 08/20/17 00:22: Salicylates < 1 L, Acetaminophen < 10.0 L 08/20/17 00:22: Urine Opiates Screen Negative, Urine Methadone Screen Negative, Ur Barbiturates Screen Negative, Ur Phencyclidine Scrn Negative, Ur Amphetamines Screen Negative, U Benzodiazepines Scrn Negative, U Oth Cocaine Metabols Negative, U Cannabinoids Screen Negative 08/20/17 00:22: Sodium 140, Potassium 3.7, Chloride 104, Carbon Dioxide 24, Anion Gap 16, BUN 12, Creatinine 0.6 L, Est GFR ( Amer) > 60, Est GFR ( Non-Af Amer) > 60, Random Glucose 93, Calcium 9.2, Total Bilirubin 0.5, AST 21, ALT 19, Alkaline Phosphatase 60, Total Protein 7.0, Albumin 4.0, Globulin 3.0, Albumin/Globulin Ratio 1.3 08/20/17 00:22: Urine Color Yellow, Urine Appearance Sl cloudy, Urine pH 6.0, Ur Specific [place] >= 1.030, Urine Protein 100 H, Urine Glucose (UA) Negative, Urine Ketones Negative, Urine Blood Negative, Urine Nitrate Negative, Urine Bilirubin Negative, Urine Urobilinogen 0.2, Ur Leukocyte Esterase Trace H, Urine RBC 0 - 2, Urine WBC 2 - 5, Ur Epithelial Cells 4 - 5, Urine Bacteria Mod 08/20/17 00:22: WBC 7.2, RBC 4.24, Hgb 12.8, Hct 38.6, MCV 91.0, MCH 30.2, MCHC 33.2, RDW 12.1, Plt Count 233, MPV 10.4, Gran % 55.5, Lymph % (Auto) 37.3 H, [place] % (Auto) 6.1 H, Eos % (Auto) 0.8 L, Baso % (Auto) 0.3, Gran # 3.97, Lymph # (Auto) 2.7, [place] # (Auto) 0.4, Eos # (Auto) 0.1, Baso # (Auto) 0.02 Vital Signs Temp Pulse Pulse Resp BP Pulse Ox 09/04/17 08:40 59 L 138/83 09/04/17 07:02 97.7 F 59 L 20 130/83 09/03/17 16:43 70 108/67 09/03/17 09:01 59 L 103/63 09/03/17 07:03 97.8 F 59 L 20 103/63 09/02/17 16:00 74 109/69 09/02/17 09:19 62 104/68 09/02/17 06:35 98.4 F 62 16 104/68 09/01/17 16:00 75 108/66 09/01/17 09:12 65 123/77 09/01/17 07:15 98.4 F 65 20 123/77 08/31/17 21:36 75 125/86 08/31/17 08:14 68 99/67 L 08/31/17 07:38 98.2 F 68 20 99/62 L 02/24/18 15:00 72 102/67 08/30/17 09:18 67 111/67 08/30/17 08:09 98.3 F 67 18 111/67 08/29/17 18:29 104 H 110/80 08/29/17 15:48 72 157/110 H 08/29/17 15:00 72 157/110 H 08/29/17 07:33 98.1 F 65 20 103/63 08/28/17 16:00 84 133/90 08/28/17 06:37 98.0 F 62 20 129/86 08/27/17 15:43 75 120/90 08/27/17 07:10 97.7 F 58 L 20 118/76 08/26/17 15:49 74 140/94 H 08/26/17 07:15 97.9 F 64 20 122/78 08/25/17 16:42 72 120/87 08/25/17 07:05 97.9 F 60 18 117/74 08/24/17 16:00 69 144/95 H 08/24/17 07:14 98.3 F 79 20 123/86 08/23/17 16:00 68 121/88 08/23/17 07:35 97.8 F 76 20 109/64 08/22/17 20:59 103 H 140/95 H 08/22/17 07:19 98.1 F 57 L 20 112/66 08/21/17 16:00 66 125/87 08/21/17 07:10 97.9 F 66 20 118/75 08/20/17 16:00 86 126/93 H 08/20/17 07:29 98.8 F 77 18 134/97 H 08/20/17 07:16 98.8 F 77 20 134/97 H 08/20/17 05:30 98.8 F 77 77 20 134/97 H 08/20/17 03:00 76 18 134/76 99 08/20/17 01:00 74 17 126/74 100 08/19/17 23:00 74 16 128/74 99 08/19/17 21:04 98.6 F 71 16 130/88 96 Consultations:: List each consultation separately and include: 1. Reason for request. 2. Findings. 3. Follow-up Consultations: medical consult appreciated please see notes for more detailed information Summary of Hospital Course include:: 1. Description of specific treatment plan utilized for patients during their course of treatmen. 2. Summarize the time- course for resolution of acute symptoms and/or regressed behaviors. 3. Describe issues identified and worked on during hospitalization. 4. Describe medication utilized. 5. Describe medical problems identified and treated. 6. Reassessment of suicide risk Summary of Hospital Course: covering for : shortly pt is 46yo female with reported h/o schizoaffective disorder, multiple psych admissions in the past, pt was admitted for evaluation of psychotic symptoms. 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 at the time of admission pt was disorganized and psychotic, irritable, angry. please see Dr. Holbrook notes for more detailed information. Over the course of this hospitalization Dr. Holbrook initiated Invega in order to give injectable form, patient did not tolerate medications well, was paranoid, seems to have worsening of psychosis, patient was resumed on Seroquel 300 mg twice a day, for mood stabilization, doses were adjusted, Klonopin 0.5 mg twice a day as needed was given for anxiety, Paxil wasslightly increased to 40 mg at the nighttime for depression and anxiety, Ambien 10 mg at the nighttime as needed for insomnia. pt tolerated meds well, no side effects observed or reported, AIMS0, no EPS. as per report, patient improved significantly, patient became less disorganized , was calm, corporative, socially appropriate. Over the course of this hospitalization pt was attending groups, pt also had medication management, had therapeutic milieu. Overall pt improved significantly, pt's affect became brighter, pt was less depressed, has realistic future oriented plans, pt also does not appear to be psychotic, or anxious, pt was socially appropriate, no behavioral issues, pts insight improved as well and soon pt deemed to be ready for discharge. At the time of the discharge pt denied been depressed, denied thoughts of harming self or others, denied psychotic symptoms, and pt does not appeared to be psychotic, denied been anxious, pt is not in imminent danger to self or others, will be following up at Dr. Holbrook's office, information about follow up appointment, time and address provided to the pt, it is patient responsibility to follow up with outpatient clinic, PMD as well as specialists ( see SW note for more detailed information). In case pt will need to obtain results of studies pending at discharge pt was provided with contact information of Psychiatric Inpatient unit [phone] as well as Medical Record Department [phone]. patient does not use any drugs, denies smoking. pt was provided with prescriptions for all of medications (please see medication reconciliation form) Pt was educated about safety plan in case of worsening of symptoms or in case of suicidal or homicidal ideation call 911 or go to the nearest ER, also was educated to take meds as prescribed and stay away from drugs, pt verbalized understanding. - Diagnosis (1) Schizoaffective disorder Current Visit: Yes Status: Chronic Priority: High - Final Diagnosis (DSM 5) Condition upon Discharge: IMPROVED Disposition: HOME/ ROUTINE Follow-up Treatment Plan: At the time of the discharge pt denied been depressed, denied thoughts of harming self or others, denied psychotic symptoms, and pt does not appeared to be psychotic, denied been anxious, pt is not in imminent danger to self or others, will be following up at Dr. Holbrook's office, information about follow up appointment, time and address provided to the pt, it is patient responsibility to follow up with outpatient clinic, PMD as well as specialists ( see SW note for more detailed information). In case pt will need to obtain results of studies pending at discharge pt was provided with contact information of Psychiatric Inpatient unit [phone] as well as Medical Record Department [phone]. patient does not use any drugs, denies smoking. pt was provided with prescriptions for all of medications (please see medication reconciliation form) Pt was educated about safety plan in case of worsening of symptoms or in case of suicidal or homicidal ideation call 911 or go to the nearest ER, also was educated to take meds as prescribed and stay away from drugs, pt verbalized understanding. Prescriptions/Medication Reconciliation: clonazePAM [Klonopin] 0.25 mg PO BID #7 tab Levothyroxine [Synthroid] 50 mcg PO ACB #7 tab Losartan [Cozaar] 50 mg PO DAILY #7 tab Paroxetine HCl [Paxil] 40 mg PO HS #14 tablet Quetiapine Fumarate [Seroquel] 300 mg PO AMHS #30 tab Zolpidem [Ambien] 10 mg PO HS #14 tab - Smoking Cessation Smoking Cessation Medication prescribed: No Reason for not providing: patient denied smoking
== END 2017-09-04 16:04 | disposition home or self-care (01) | DRG 885 ==
LOC: ED 20:26 → ERH 08-20 02:55 → PSYC 08-20 04:58
PROVIDERS: ADMIT Psychiatry & Neurology Addiction Medicine; ATTEND Psychiatry & Neurology Addiction Medicine
DX: F25.9 Schizoaffective disorder, unspecified (principal); E11.65 Type 2 diabetes mellitus with hyperglycemia; R45.851 Suicidal ideations; E03.9 Hypothyroidism, unspecified; F31.9 Bipolar disorder, unspecified; F41.9 Anxiety disorder, unspecified; I10 Essential (primary) hypertension; E66.3 Overweight; E78.5 Hyperlipidemia, unspecified; K21.9 Gastro-esophageal reflux disease without esophagitis; Z79.899 Other long term (current) drug therapy; Z86.11 Personal history of tuberculosis; Z91.048 Other nonmedicinal substance allergy status; R40.2412 Glasgow coma scale score 13-15, at arrival to emergency department

== ENCOUNTER 2018-07-31 12:51 | Inpatient (IN) | payer MEDICARE ==
[2018-07-31 13:09] VITALS: BMI 36.8
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
[2018-07-31 14:37] LABS: BASO # 0.01 K/mm3 (0.0-2.0); BASO % 0.1 % (0.0-3.0); EOS % 0.3 % (1.5-5.0); HEMOGLOBIN 13.1 g/dL (12.0-16.0); LYMPH # 1.8 (1.2-3.4); LYMPH % 24.2 % (22.0-35.0); MEAN CELL VOLUME 87.7 fl (80.0-105.0); MEAN CORPUSCULAR HEMOGLOBIN 29.8 pg (25.0-35.0); MEAN CORPUSCULAR HGB CONC 33.9 g/dl (31.0-37.0); MEAN PLATELET VOLUME 9.7 fl (7.0-11.0); MONO # 0.3 (0.1-0.6); MONO % 3.8 % (1.0-6.0); RBC 4.4 10^6/uL (3.5-6.1); WHITE BLOOD COUNT 7.4 10^3/uL (4.5-11.0)
[2018-07-31 14:45] LABS: ALB/GLOB RATIO 1.4 (1.1-1.8); ALBUMIN 4.4 g/dL (3.0-4.8); ALT/SGPT 37 U/L (7-56); AST/SGOT 30 U/L (14-36); BLOOD UREA NITROGEN 13 mg/dL (7-21); CALCIUM 9.5 mg/dL (8.4-10.5); GFR NON-AFRICAN AMERICAN > 60
[2018-07-31 14:46] LABS: ACETAMINOPHEN < 10.0 ug/ml (10.0-20.0); SALICYLATE < 1 mg/dL (2.0-20.0)
[2018-07-31 14:50] LABS: BENZODIAZEPINES, UR NEGATIVE (NEGATIVE)
[2018-07-31 14:53] LABS: BARBITURATES, UR NEGATIVE (NEGATIVE); OPIATES, UR NEGATIVE (NEGATIVE); PHENCYCLIDINE, UR NEGATIVE (NEGATIVE)
[2018-07-31 14:56] LABS: URINE BILIRUBIN NEGATIVE (NEGATIVE); URINE BLOOD NEGATIVE (NEGATIVE); URINE GLUCOSE (UA) NEGATIVE (NEGATIVE); URINE LEUKOCYTE ESTERASE NEGATIVE Leu/uL (NEGATIVE); URINE PROTEIN NEGATIVE mg/dL (<30 mg/dL); URINE UROBILINOGEN 0.2 E.U./dL (<1 E.U./dL)
[2018-07-31 15:03] LABS: URINE APPEARANCE CLEAR (CLEAR); URINE COLOR YELLOW (YELLOW)
--- NOTE | 2018-07-31 15:11 | RAD ---
Date of service: 07/31/2018 HISTORY: PES EVAL COMPARISON: 08/20/2017 FINDINGS: LUNGS: No active pulmonary disease. PLEURA: No significant pleural effusion identified, no pneumothorax apparent. CARDIOVASCULAR: No aortic atherosclerotic calcification present. Normal cardiac size. No pulmonary vascular congestion. OSSEOUS STRUCTURES: No significant abnormalities. VISUALIZED UPPER ABDOMEN: Normal. OTHER FINDINGS: None. IMPRESSION: No active disease.
[2018-07-31 15:36] VITALS: O2SAT 98
--- NOTE | 2018-07-31 23:17 | CARD ---
APPROVED REPORT Date of service: 07/31/2018 EKG Measurement Heart [id number] <Conclusion> Sinus tachycardia Poor R wave progression V1-4. Probable old AMI. NDSTT abnormalities CCR Abnormal ECG
--- NOTE | 2018-08-01 05:18 | PCM.BM ---
<Wojciech Logan - Last Filed: 08/01/18 05:09> Treatment Plan Problems - Problems identified on initial assessmt Ineffective coping Date Initiated: 07/31/18 Time Initiated: 20:00 Assessment reference: NA Status: Active Altered thought pattern Date Initiated: 07/31/18 Time Initiated: 20:00 Assessment reference: NA Status: Active Medication compliant Date Initiated: 07/31/18 Time Initiated: 20:00 Assessment reference: NA Status: Active Treatment assets and liabiliti Patient Assests: cooperative, self-reliant, ADL independent, good support system, negotiates basic needs Patient Liabilities: financial problems - Milieu Protocol Maintain good personal hygiene: daily Encourage regular showers, daily Remind patient to perform daily oral care, daily Assist patient to perform ADL's Maintain personal safety: daily Educate patient to report safety concerns to staff, daily Monitor environment for contraband/sharps Medication safety: Monitor for expected outcome, potential side effects: daily, Assess barriers to learning: daily, Assess readiness for medication education: daily Family Contact Family involvement: Family/SO is involved Family contact: Patient agrees to contact Discharge/Continuing Care - Education Needs Education Needs: Patient Medication, Patient Coping Skills - Discharge Discharge Criteria: Normal sleep pattern, Ability to care for self <Haritha Padgett - Last Filed: 08/01/18 09:06> - Diagnosis (1) Schizoaffective disorder Status: Chronic Interventions: 08/01/18 09:07 Psychoeducation/psychotherapy Psychopharmacology/adjustment of medications as needed/ monitoring possible side effects Evaluate pt on daily basis Compliance with medications and follow up appointments Long acting medication if pt is noncompliant with pill form Suicide and homicide risk assessment and prevention, coping strategies, safety plan Relapse prevention Reduction of symptoms Improve functional status Possible assertive community treatment Cognitive behavioral therapy Family involvement Possible social skill training as outpatient <Adriana Zazueta Y - Last Filed: 08/04/18 08:24> Family Contact Family contact: Patient agrees to contact
[2018-08-01 08:34] LABS: HDL CHOLESTEROL 50 mg/dL (29-60)
[2018-08-01 08:44] LABS: LDL CHOLESTEROL 124 mg/dL (0-129)
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
--- NOTE | 2018-08-01 15:18 | CARD ---
APPROVED REPORT Date of service: 08/01/2018 EXAM: Two-dimensional and M-mode echocardiogram with Doppler and color Doppler. INDICATION EVAL WALL MOTION 2D DIMENSIONS IVSd1.5 (0.7-1.1cm)LVDd4.6 (3.9-5.9cm) PWd1.3 (0.7-1.1cm)LVDs3.1 (2.5-4.0cm) FS (%) 31.3 %LVEF (%)59.2 (>50%) M-Mode DIMENSIONS Left Atrium (MM)3.70 (2.5-4.0cm)Aortic Root3.50 (2.2-3.7cm) Aortic Cusp Exc.2.20 (1.5-2.0cm) Aortic Valve AoV Peak Rxburtjp220.0cm/Jennifer Peak GR.9mmHg Mitral Valve MV E Klnmhoyh72.4cm/sMV A Rydcecfk68.9cm/sE/A ratio1.0 TDI Lateral E' Peak V7.12cm/sMedial E' Peak V6.04cm/sE/Lateral E'11.4 E/Medial E'13.5 Tricuspid Valve TR Peak [id number]/sRAP [id number] Peak Gr.31mmHg [id number] LEFT VENTRICLE The left ventricle is normal size. There is mild concentric left ventricular hypertrophy. The left ventricular function is normal. The left ventricular ejection fraction is within the normal range. There is normal LV segmental wall motion. Transmitral Doppler flow pattern is Grade I-abnormal relaxation pattern. RIGHT VENTRICLE The right ventricle is normal size. There is normal right ventricular wall thickness. The right ventricular systolic function is normal. ATRIA The left atrium size is normal. The right atrium size is normal. AORTIC VALVE The aortic valve is normal in structure. No aortic regurgitation is present. There is no aortic valvular stenosis. MITRAL VALVE The mitral valve is normal in structure. There is no mitral valve regurgitation noted. TRICUSPID VALVE There is mild pulmonary hypertension. GREAT VESSELS The aortic root is normal in size. The IVC is normal in size and collapses >50% with inspiration. PERICARDIAL EFFUSION There is no pericardial effusion. <Conclusion> There is mild concentric left ventricular hypertrophy. The left ventricular function is normal. The left ventricular ejection fraction is within the normal range. There is normal LV segmental wall motion. Transmitral Doppler flow pattern is Grade I-abnormal relaxation pattern. There is mild pulmonary hypertension.
--- NOTE | 2018-08-01 19:14 | CON ---
DATE OF CONSULTATION: 08/01/2018 HISTORY OF PRESENT ILLNESS: This 47-year-old female was examined at her bedside in the psychiatric ritter, Room 518, Bed 2. The patient presented to the [facility] ER last night where she complained of bony aches and pains for which she took Seroquel, which did not improve her pain. The patient has a longstanding history of bipolar schizoaffective disorder with history of suicidal ideation in the past. According to her medical profile, she takes Cozaar and Synthroid and denied any previous surgery and is a nonsmoker, social drinker, non IV drug misuser. When asked if she had any allergies, she immediately said "bleach." When I asked her if there were any medicine allergies, she denied this. The patient is followed by Dr. Holbrook from Psychiatry and apparently takes Ambien, Seroquel, Paxil, Cozaar, Ativan and Synthroid as an outpatient. REVIEW OF SYSTEMS: CONSTITUTIONAL: Denied fever or chills. HEENT: Head: No headache or seizure. Eyes: No change in visual acuity. Ears: No hearing loss. Throat: No swallowing difficulty. NECK: No stiffness. CARDIAC: Apparent chronic hypertension. PULMONARY: No cough. No hemoptysis. GI: No hematemesis. No melena. : No dysuria. SKIN: No rash. VASCULAR: No claudication. PSYCHOLOGICAL: Chronic schizoaffective bipolar disorder. NEUROLOGICAL: No knowledge of stroke. PHYSICAL EXAMINATION: VITAL SIGNS: Temperature 97.6, respirations 18, pulse 68 and blood pressure 128/83. Pulse ox 98% room air. HEENT: Head: Normocephalic, atraumatic. Eyes: No icterus. Ears: Clear. Throat: Noninjected. NECK: Supple. HEART: S1, S2. LUNGS: Clear. ABDOMEN: Soft. EXTREMITIES: No edema. SKIN: Without rash. NEUROLOGICAL: Intact psychological alert. VASCULAR: Legs warm to touch. LABORATORY DATA: White count 7400, hemoglobin 13.1, hematocrit 38.6, platelets 257,000. Sodium 138, K 4.0, chloride 105, bicarb 24, BUN 13, creatinine 0.6, random blood sugar 116, calcium 9.5. Bilirubin 0.5, AST 30, ALT 37, alk phos 88. Cholesterol 205, triglycerides 110, LDL 124, HDL 50. TSH normal 1.25. Urinalysis unremarkable. Drug screen for opiates negative. Alcohol level less than 10. EKG was reviewed. It showed a normal sinus rhythm with poor R-wave progression of I through IV, rule out old anterior wall PA. Chest x-ray was reviewed. It showed no active pulmonary disease, no infiltrate, no CHF, no effusion, no pneumothorax. IMPRESSION: The patient is a 47-year-old female with longstanding bipolar schizoaffective disorder with apparent chronic hypertension and hypothyroidism, abnormal EKG plan. PLAN: At present is to continue psychotropic medications including Seroquel, Paxil, Haldol, Desyrel, Ativan and Ambien under the direction of Dr. Holbrook. The patient will continue on her Synthroid 50 mcg p.o. daily and is ordered to receive Cozaar 50 mg p.o. daily. I have ordered a 2-D echocardiogram to evaluate wall motion and she is scheduled for a hemoglobin A1c as well. Based on clinical progress, additional diagnostic workup and testing will be entertained. Urine test from the emergency room was ordered and was indeed negative. Verito Oh MD
[2018-08-02] MEDS: Levothyroxine 50 MCG TAB PO SCH (06:48)
[2018-08-02] MEDS ORDERED: DiphenhydrAMINE 50 mg/ml Inj IM PRN (09:07)
--- NOTE | 2018-08-02 11:22 | PCM.PYCHPN ---
Psychiatric Progress Note - Psychiatric Progress Note Patient seen today, length of contact: 30min Patient Chief Complaint: "today I feel balanced..." Problems Identified/Issues Discussed: Risk/benefits and alternatives of medications discussed, suicide/ homicide prevention, past psychiatric h/o, current psychiatric symptoms, medical problems, risk/benefits and alternatives of medications, medications compliance, coping strategies, substance abuse h/o, relapse prevention, importance of follow up with psychiatrist and therapist, discharge plan. Medical Problems: Chronic hypertension and Hypothyroidism Diagnostic Results: 07/31/18 14:20 07/31/18 14:20 Lab Results 08/01/18 07:30: Triglycerides 110, Cholesterol 205 H, LDL Cholesterol Direct 124, HDL Cholesterol 50 08/01/18 07:30: RPR Nonreactive 08/01/18 07:30: TSH 3rd Generation 1.25 08/01/18 07:30: Fasting Glucose 91 07/31/18 14:20: Alcohol, Quantitative < 10 07/31/18 14:20: Salicylates < 1 L, Acetaminophen < 10.0 L 07/31/18 14:20: Sodium 138, Potassium 4.0, Chloride 105, Carbon Dioxide 24, Anion Gap 14, BUN 13, Creatinine 0.6 L, Est GFR ( Amer) > 60, Est GFR (Non-Af Amer) > 60, Random Glucose 116 H, Calcium 9.5, Total Bilirubin 0.5, AST 30, ALT 37, Alkaline Phosphatase 88, Total Protein 7.6, Albumin 4.4, Globulin 3.2, Albumin/Globulin Ratio 1.4 07/31/18 14:20: WBC 7.4, RBC 4.40, Hgb 13.1, Hct 38.6, MCV 87.7 D, MCH 29.8, MCHC 33.9, RDW 12.0, Plt Count 257, MPV 9.7, Neut % (Auto) 72.0 H, Lymph % (Auto) 24.2, [place] % (Auto) 3.8, Eos % (Auto) 0.3 L, Baso % (Auto) 0.1, Lymph # (Auto) 1.8, [place] # (Auto) 0.3, Eos # (Auto) 0.0, Baso # (Auto) 0.01, Absolute Neuts (auto) 5.02 07/31/18 14:15: Urine Opiates Screen Negative, Urine Methadone Screen Negative, Ur Barbiturates Screen Negative, Ur Phencyclidine Scrn Negative, Ur Amphetamines Screen Negative, U Benzodiazepines Scrn Negative, U Oth Cocaine Metabols Negative, U Cannabinoids Screen Negative 07/31/18 14:15: Urine Color Yellow, Urine Appearance Clear, Urine pH 7.0, Ur Specific [place] 1.015, Urine Protein Negative, Urine Glucose (UA) Negative, Urine Ketones Negative, Urine Blood Negative, Urine Nitrate Negative, Urine Bilirubin Negative, Urine Urobilinogen 0.2, Ur Leukocyte Esterase Negative Vital Signs Temp Pulse Resp BP Pulse Ox 08/02/18 09:00 70 146/96 H 08/02/18 07:24 97.6 F 70 20 146/96 H 08/01/18 11:53 68 128/83 08/01/18 07:00 97.6 F 68 18 128/83 07/31/18 18:15 76 18 134/67 98 07/31/18 15:36 83 18 138/79 98 07/31/18 13:09 98.6 F 100 H 20 142/93 H 96 DSM 5 Symptoms Update: Covering for Dr. Holbrook: Shortly patient is a 47-year-old F with PMH of schizoaffective disorder, bipolar disorder, and suicidal ideation who presents to [facility] with a chief complaint of bilateral wrist pain x2 days, during emergency room evaluation patient presented to be disorganized, religiously preoccupied, presented to be psychotic, referred for PES evaluation, PES contacted outpatient psychiatrist Dr. Holbrook or reported patient missed her previous appointment, most likely she was noncompliant with the medications, as a result patient became psychotic, disorganized, and patient required further evaluation and stabilization and observation. Patient was seen today at the dining area, patient presented with acceptable personal hygiene, good ADLs, patient presented with some improvement, patient was less irritable, not cursing, was able to participate in interview but at the same time patient seems to be restless inpatient to go back to her room, guarded, not forthcoming with information. Patient still paranoid about her neighbor, patient feels that she is "disclosing information about me, she is prostituting, using drugs." Patient denied any visual hallucinations but in the emergency room patient mentioned that she is sees "demons and angels,", patient is oddly related but not agitated, not aggressive. As per staff patient is compliant with the medications, pacing in the unit, had fair appetite and sleep. So far patient tolerates medications well, no side effects observed or reported, aims 0, no EPS. Impression: as per history of schizoaffective disorder Medication Change: Yes (Seroquel increased) Medical Record Reviewed: Yes Consults ordered or reviewed: Medical consult appreciated, please see notes for more detailed information. Mental Status Examination - Cognitive Function Orientation: Person, Place, Situation Memory: Intact Attention: Poor Concentration: Poor Association: Loose Fund of Knowledge: WNL - Mood Mood: Depressed (Irritable) - Affect Affect: Flat - Formal Thought Process Formal Thought Process: Hallucinations, Delusions, Paranoia, Loosening of associations, Circumstantial - Suicidal Ideation Suicidal Ideation: No Plan: Prior to come to the hospital patient reported that she had suicidal ideation, but denied today - Homicidal Ideation Homicidal Ideation: No Goal/Treatment Plan - Goal/Treatment Plan Need for Continued Stay: Remain at risks for inpatient hospitalization, Severe depression anxiety, Discharge may exacerbated symptoms, Severe functional impairment Progress Toward Problem(s) and Goals/Treatment Plan: Milieu/structure/supportive therapy SW consultation for discharge plan and social issues Med management Seroquel was resumed for depression as well as mood stabilization as well as psychosis Paxil resumed, benzodiazepines as needed for anxiety, as needed medication Medical consultation appreciated Family involvement Follow up on labs Will monitor closely Pt was educated about risk/benefits and alternatives of medications, coping strategies (safety plan, suicide prevention), relapse prevention, importance of follow up with psychiatrist and therapist, stay away from drugs/alcohol/smoking Estimated Date of D/C: 08/07/18
--- NOTE | 2018-08-02 19:38 | PN ---
DATE: 08/02/2018 SUBJECTIVE: This 47-year-old female remains hospitalized in the [facility] psychiatric ritter on the morning of 08/02/2018. The patient was admitted with suicidal ideation and exacerbation of her bipolar schizophrenic disorder. I am following with the patient because of history of chronic hypertension and hypothyroidism and an abnormal EKG report. I did review her 2-D echocardiogram that shows normal left ventricular wall motion, thickness and normal ejection fraction despite an EKG suggestive of an anterior wall myocardial infarction. PHYSICAL EXAMINATION: VITAL SIGNS: Temperature is 97.6, respirations 20, pulse 70 and blood pressure 146/96; previously 128/83. HEENT: Head: Normocephalic, atraumatic. Eyes: No icterus. Ears: Clear. Throat: Noninjected. NECK: Supple. HEART: S1, S2. LUNGS: Clear. ABDOMEN: Soft. EXTREMITIES: No edema. SKIN: Without rash. NEUROLOGICAL: Intact. PSYCHOLOGICAL: Alert. VASCULAR: Legs warm to touch. LABORATORY DATA: White count 7400, hemoglobin 13.1, hematocrit 38.6, platelets 457,000. Sodium 138, K 4, chloride 105, bicarb 24, BUN 13, creatinine 0.6. Hemoglobin A1c is 5.2. Cholesterol 205, triglycerides 110, LDL 124, HDL 50 and TSH 125. IMPRESSION: This is a 47-year-old female admitted with suicidal ideation, none at present and comorbidities of bipolar, schizophrenia, psychosis, insomnia, anxiety, hypertension, hypothyroidism and degenerative arthritis. PLAN: To continue Synthroid, Seroquel, Paxil, Haldol, Desyrel, Cozaar, Ativan and Ambien. Based on clinical progress, additional testing will be entertained. I will monitor her blood pressure curve prior to making appropriate adjustment in her antihypertensive medication as needed. Verito Oh MD MTDD
[2018-08-03] MEDS: Levothyroxine 50 MCG TAB PO SCH (06:26)
--- NOTE | 2018-08-03 14:13 | PN ---
DATE: 08/03/2018 SUBJECTIVE: This 47-year-old female was examined on the psychiatric ritter of the [facility] on the morning of 08/03/2018. Her case was reviewed in detail with Dr. Holbrook from Psychiatry. She was admitted with suicidal ideation as well as exacerbation of bipolar psychosis and chronic schizophrenia. The patient has a medical history of chronic hypothyroidism and hypertension and she states that she was noncompliant with her antihypertensive medication as an outpatient. Because of an abnormal EKG on admission suggestive of an old anterior wall myocardial infarction, she underwent a 2-D echocardiogram. I did review her echocardiogram with the patient. It showed left atrium normal in size and mild concentric left ventricular hypertrophy with normal left ventricular function and ejection fraction within normal range, normal left ventricular segmental wall motion. The patient was advised of these findings. PHYSICAL EXAMINATION: Today, VITAL SIGNS: Temperature was 97.8, respirations 20, pulse 64 and blood pressure 124/73. HEENT: Head: Normocephalic, atraumatic. Eyes: No icterus. Ears: Clear. Throat: Noninjected. NECK: Supple. HEART: S1, S2. LUNGS: Clear. ABDOMEN: Soft. EXTREMITIES: No edema. SKIN: Without rash. NEUROLOGICAL: Intact. PSYCHOLOGICAL: Alert. VASCULAR: Legs warm to touch. LABORATORY DATA: White count 7400, hemoglobin 13.1, hematocrit 38.6, platelets 257,000. Sodium 138, K 4, chloride 105, bicarb 24, BUN 13, creatinine 0.6, random blood sugar 116. Hemoglobin A1c 5.2. Cholesterol 205, triglycerides 110, LDL 124, HDL 50. TSH 1.25, normal. IMPRESSION: This is a 47-year-old female with obesity, hypertension, hypothyroidism, mild hyperlipidemia with comorbidities of bipolar psychosis and suicidal ideation now improved. PLAN: Continue Ambien, Ativan, Cozaar, Desyrel, Haldol p.r.n., Paxil, Seroquel, Synthroid. The patient was advised of her medical findings and will hopefully be more compliant with her medication administration as an outpatient. Verito Oh MD MTDEmilia
--- NOTE | 2018-08-03 14:40 | PN ---
DATE: 08/03/2018 SUBJECTIVE: The patient is a 47-year-old [place] female with a diagnosis of schizoaffective disorder, who had come to the emergency room in a depressed state complaining of wrist pain. HISTORY OF PRESENT ILLNESS: The patient, who had lost her recent court proceedings, thus her being able to maintain residency in her foreclosed home despite her bankruptcy were denying at the beginning of July. She has now become more withdrawn, depressed, angry and suicidal, thinking of overdosing. She thus came to the emergency room seeking relief. The patient was interviewed in treatment team and the reader is referred to notes taken there. She is presently depressed, withdrawn, focused, does not show thought disorganization or mood lability in a way that she is capable of. She is religiously preoccupied and reportedly has been sexually preoccupied, also (a paradox that has been noted in the course of this patient's illness on a number of times, i.e., where she both becomes very uatsdin in her confections and very loose in her dressing comportment). She was able to presently presenting a consistent history, indicating that she has been hearing voices of variegation, has been seeing angels and demons, and has paranoid thoughts, and has had impaired sleep. She is also very disturbed that she has been told she has a heart attack. Unfortunately, she has been seen by Cardiology, but I am unable to get into the computer with regard to . An echocardiogram on 08/01 showed mild concentric left ventricular hypertrophy, left ventricular function normal, left ventricular ejection fraction normal, normal LV segmental motion, mild pulmonary hypertension, there is no pericardial effusion. An EKG taken on 07/31 shows sinus tachycardia and poor R wave progression V1-V4, probably old VA. When seen by Dr. Oh yesterday, it was noted that she has hypertension, hypothyroidism and degenerative arthritis. Blood pressure presently 124/73, pulse 64, temperature 97.8, respiratory rate 20. The patient is being maintained on Cozaar 50 mg daily, trazodone 50 mg at bedtime, Paxil 40 mg daily, Seroquel 300 mg a.m. and 400 mg at bedtime, Synthroid 50 mcg daily. We will continue to monitor the patient. Handy Holbrook MD/ [facility] # [id number]
[2018-08-04] MEDS: Levothyroxine 50 MCG TAB PO SCH (07:08)
--- NOTE | 2018-08-04 15:08 | PN ---
DATE: 08/04/2018 SUBJECTIVE: This 47-year-old female remains hospitalized on the psychiatric ritter on the morning of 08/04/2018. She was admitted with suicidal ideation and exacerbation of bipolar psychosis, schizophrenia, and confusional state. She has chronic hypertension and hypothyroidism for which she admits noncompliance with outpatient medication. PHYSICAL EXAMINATION: VITAL SIGNS: At present, temperature is 97.8, respirations 20, pulse 68, and blood pressure 126/78. Physical exam is unchanged. LABORATORY DATA: White count 7400, hemoglobin 13.1, hematocrit 38.6, platelets 257,000. Sodium 138, K 4, chloride 105, bicarb 24, BUN 13, creatinine 0.6, random blood sugar 91. Hemoglobin A1c was 5.2. Cholesterol 205, triglycerides 110, LDL 124, HDL 50, and TSH 1.25. RPR nonreactive. IMPRESSION: A 47-year-old female with obesity, bipolar psychosis, schizophrenia, hypertension, hypothyroidism, hyperlipidemia. PLAN: Continue Synthroid, Cozaar and psychotropic medication including Ativan, Ambien, Desyrel, Haldol, Paxil, and Seroquel under the direction of Dr. Holbrook from Psychiatry. All of the above was reviewed with the patient. Verito Oh MD MTDD
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
[2018-08-05] MEDS: Levothyroxine 50 MCG TAB PO SCH (06:07)
--- NOTE | 2018-08-05 14:47 | PN ---
DATE: 08/05/2018 SUBJECTIVE: This 47-year-old female remains hospitalized at [facility] on Sunday, August 05, 2018. She was admitted with exacerbation of bipolar psychosis, chronic schizophrenia and accelerated hypertension. PHYSICAL EXAMINATION VITAL SIGNS: On physical examination, temperature is 98, respirations 20, pulse 67, and blood pressure 110/64. Physical exam is unchanged. LABORATORY DATA: White count 7400, hemoglobin 13.1, hematocrit 38.6, and platelets 257,000. Hemoglobin A1c 5.2 and glucose 91. Cholesterol 205, BUN 13 and creatinine 0.6. IMPRESSION: A 47-year-old female with exacerbation of schizophrenia, bipolar psychosis, history of chronic insomnia, anxiety, hypertension and hypothyroidism, obesity and hyperlipidemia. She will continue on Synthroid, Cozaar, p.r.n. Ativan, Ambien, Desyrel, Haldol, Paxil and Seroquel. Disposition will be decided by Dr. Holbrook from Psychiatry. Verito Oh MD
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
[2018-08-06] MEDS: Levothyroxine 50 MCG TAB PO SCH (06:27)
--- NOTE | 2018-08-06 15:37 | PN ---
DATE: 08/06/2018 SUBJECTIVE: This 47-year-old female remains hospitalized on the psychiatric ritter on the morning of , 08/06/2018. The patient has a longstanding history of chronic hypothyroidism and hypertension and stated she was not consistent with her medication as an outpatient. The patient was admitted with suicidal ideology and acute exacerbation of her bipolar psychosis. PHYSICAL EXAMINATION: VITAL SIGNS: At present, her temperature is 97.8, respirations 20, pulse 66 and blood pressure 106/64. Physical exam is unchanged. LABORATORY DATA: White count 7400, hemoglobin 13.1, hematocrit 38.6, platelets 257,000. Sodium 138, K 4, chloride 105, bicarb 24, BUN 13, creatinine 0.6, random blood sugar 91. Hemoglobin A1c 5.2. Cholesterol 205. TSH 1.25, normal. Urinalysis was unremarkable. Urine drug screen was negative. RPR was nonreactive. IMPRESSION: A 47-year-old female with obesity, hyperlipidemia, hypertension, hypothyroidism, bipolar psychosis and chronic schizophrenia, admitted with suicidal ideation, now resolved. PLAN: Continue Synthroid, Seroquel, Paxil, Haldol, Desyrel, Cozaar, Ativan and Ambien. She continues under the psychiatric direction of Dr. Holbrook from Psychiatry and will continue on blood pressure and hypothyroid medication as outlined and a low-cholesterol diet. Verito Oh MD
[2018-08-07] MEDS: Levothyroxine 50 MCG TAB PO SCH (06:14)
--- NOTE | 2018-08-07 14:41 | PN ---
DATE: 08/07/2018 SUBJECTIVE: This 47-year-old female was examined in the psychiatric ritter in the presence of nurse, porfirio Koenig nurse. The patient remains anxious and easily agitated. I was asked to re-discuss the patient's EKG and echocardiographic findings. I did explain to the patient very carefully that she has a normal echocardiogram with normal wall motion and no evidence of previous myocardial infarction, however, the patient seems to have flight of ideas and is easily distracted. PHYSICAL EXAMINATION: VITAL SIGNS: Temperature is 98.4, respirations 20, pulse 69 and blood pressure 109/66. Physical exam remains unchanged. LABORATORY DATA: White count 7400, hemoglobin 13.1, hematocrit 38.6, platelets 257,000. Sodium 138, K 4, chloride 105, bicarb 24, BUN 13, creatinine 0.6, random blood sugar 116. IMPRESSION: A 47-year-old female admitted with exacerbation of bipolar psychosis, chronic schizophrenia and comorbidities of insomnia, anxiety, chronic hypertension, hypothyroidism and noncompliance with medication as an outpatient. As discussed with nursing staff present for the interview, the patient was advised to be compliant with her Synthroid and Cozaar as well as psychotropic drugs. She will continue with her psychiatric course under the direction of Dr. Holbrook given her unstable mental status at present. Greater than 35 minutes was spent in the care management, review of labs, orders, x-rays, echocardiography and EKG with the patient in the presence of porfirio Tolliver nurse. All questions were answered. Verito Oh MD
[2018-08-08] MEDS: Levothyroxine 50 MCG TAB PO SCH (05:45)
--- NOTE | 2018-08-08 10:17 | PCM.PYCHPN ---
Psychiatric Progress Note - Psychiatric Progress Note Patient seen today, length of contact: 30min Problems Identified/Issues Discussed: I reviewed assessment and recent notes. Patient was interviewed at bedside. She is calm and fairly cooperative with questioning. Oriented x3. Responses are s uperficial but relevant and consistent with repeated questioning. Patient appears guarded and reports that she is "doing okay". She denies any new concerns. Specifically denies any new pain, discomfort or side effects. Patient received Ambien 10 mg last night with good effect for sleep Staff notes indicate the patient has been visible on the unit demonstrating fair hygiene with brighter affect. Diagnostic Results: As per history, Schizoaffective Disorder Medication Change: No (Seroquel increased) Medical Record Reviewed: Yes Mental Status Examination - Cognitive Function Orientation: Person, Place, Situation, Time Memory: Intact Attention: WNL Concentration: WNL Association: WNL Fund of Knowledge: WNL - Mood Mood: Depressed (Irritable), Neutral - Affect Affect: Constricted, Flat - Speech Speech: Soft - Formal Thought Process Formal Thought Process: Delusions, Paranoia (guarded) - Suicidal Ideation Suicidal Ideation: No - Homicidal Ideation Homicidal Ideation: No Goal/Treatment Plan - Goal/Treatment Plan Need for Continued Stay: Remain at risks for inpatient hospitalization, Severe depression anxiety, Discharge may exacerbated symptoms, Severe functional impairment Progress Toward Problem(s) and Goals/Treatment Plan: * c/w current tx and plan * Vitals reviewed and noted below: Selected Entries 08/07/18 08/07/18 07:16 15:00 Temperature 98.4 F Pulse Rate 69 73 Respiratory 20 20 Rate Blood Pressure 109/66 120/79 Estimated Date of D/C: 08/07/18
--- NOTE | 2018-08-08 19:14 | PN ---
DATE: 08/08/2018 SUBJECTIVE: This 47-year-old female remains hospitalized at the [facility] on 08/08/2018. She was seen earlier today by psychiatrist, Dr. Britt, medical doctor who confirms that the patient remains anxious and easily distracted. PHYSICAL EXAMINATION VITAL SIGNS: Her temperature was 97.9, respirations 20, pulse 68 and blood pressure 114/76. HEENT: Head: Normocephalic, atraumatic. Eyes: No icterus. Ears: Clear. Throat: Noninjected. NECK: Supple. HEART: S1, S2. LUNGS: Clear. ABDOMEN: Soft. EXTREMITIES: No edema. SKIN: Without rash. NEUROLOGICAL: Intact. PSYCHOLOGICAL: Alert. VASCULAR: Legs warm to touch. LABORATORY DATA: White count 7400, hemoglobin 13.1, hematocrit 38.6, platelets 157,000. Sodium 138, K 4.0, chloride 105, bicarb 24, BUN 13, creatinine 0.6, random blood sugar 91. Hemoglobin A1c 5.2. All liver function testing was normal including bilirubin 0.5, AST 30, ALT 37 and alk phos 88. Total cholesterol 205, triglycerides 110, LDL 124, TSH 1.25. Urine drug screen was unremarkable. RPR was nonreactive. IMPRESSION: This is a 47-year-old obese female with exacerbation of bipolar psychosis, chronic schizoaffective disorder and chronic anxiety, depression and hypothyroidism, hyperlipidemia, and chronic hypertension. PLAN: My plans are to continue her heart-healthy, low-cholesterol diet, Synthroid, Cozaar and psychotropic medications including Seroquel, Paxil, Haldol, Desyrel, Ativan and Ambien will be continued under the direction of Dr. Holbrook. The patient needs a great deal of psychiatric and psychological reinforcement and remains anxious at present. Verito Oh MD
[2018-08-09] MEDS: Levothyroxine 50 MCG TAB PO SCH (06:02)
--- NOTE | 2018-08-09 09:10 | PCM.PYCHPN ---
Psychiatric Progress Note - Psychiatric Progress Note Patient seen today, length of contact: 30min Problems Identified/Issues Discussed: I reviewed recent notes and patient was interviewed at bedside. She is calm and fairly cooperative with questioning. Oriented x3. Responses are superficial but relevant and consistent with repeated questioning. Patient appears guarded and reports that she is "doing okay". She denies any new concerns. Specifically denies any new pain, discomfort or side effects. Patient received Ambien 10 mg last night again with good effect for sleep Staff notes indicate the patient has been very visible on the unit demonstrating fair hygiene with brighter affect. Diagnostic Results: As per history, Schizoaffective Disorder Medication Change: No ( ) Medical Record Reviewed: Yes Mental Status Examination - Cognitive Function Orientation: Person, Place, Situation, Time Memory: Intact Attention: WNL Concentration: WNL Association: WN Fund of Knowledge: WN - Mood Mood: Depressed (Irritable), Neutral - Affect Affect: Constricted, Flat - Speech Speech: Soft - Formal Thought Process Formal Thought Process: Delusions, Paranoia (guarded) - Suicidal Ideation Suicidal Ideation: No - Homicidal Ideation Homicidal Ideation: No Goal/Treatment Plan - Goal/Treatment Plan Need for Continued Stay: Remain at risks for inpatient hospitalization, Severe depression anxiety, Discharge may exacerbated symptoms, Severe functional impairment Progress Toward Problem(s) and Goals/Treatment Plan: * c/w current tx and plan * Appreciate f/u by Dr. Oh on 08/08/18 * Vitals reviewed and noted below: Selected Entries 08/09/18 07:00 Temperature 97.9 F Pulse Rate 64 Respiratory 20 Rate Blood Pressure 109/68 * No new weekend lab results noted thus far Estimated Date of D/C: 08/07/18
--- NOTE | 2018-08-09 21:37 | PN ---
DATE: 08/09/2018 This 47-year-old female remains hospitalized on the [facility] the [facility] on the morning of 08/09/2018. The patient remains depressed, constricted, guarded, and paranoid. She was admitted with exacerbation of bipolar, psychosis and chronic schizophrenia. Physical exam shows temperature is 97.9, respirations 20, pulse 64 and blood pressure 109/68. Physical exam remains unchanged. The patient was seen earlier today by Dr. Britt from Psychiatry. She at present desires to continue the patient's treatment with p.r.n. Ambien, Ativan, Haldol, Paxil and Seroquel. The patient will continue on Synthroid, Cozaar and a low-cholesterol heart healthy diet for medical issues including hypothyroidism, chronic hypertension and hyperlipidemia. Based on clinical progress, disposition planning will be entertained by Dr. Holbrook from Psychiatry. Verito Oh MD MTDEmilia
[2018-08-10] MEDS: Levothyroxine 50 MCG TAB PO SCH (05:20)
[2018-08-10 07:27] LABS: HEMOGLOBIN 12.2 g/dL (12.0-16.0); MEAN CELL VOLUME 88.6 fl (80.0-105.0); MEAN CORPUSCULAR HEMOGLOBIN 29.5 pg (25.0-35.0); MEAN CORPUSCULAR HGB CONC 33.3 g/dl (31.0-37.0); MEAN PLATELET VOLUME 9.6 fl (7.0-11.0); RBC 4.13 10^6/uL (3.5-6.1); RED CELL DISTRIBUTION WIDTH 12.4 % (11.5-14.5); WHITE BLOOD COUNT 7.6 10^3/uL (4.5-11.0)
[2018-08-10 07:51] LABS: BLOOD UREA NITROGEN 15 mg/dL (7-21); CALCIUM 9.2 mg/dL (8.4-10.5); GFR NON-AFRICAN AMERICAN > 60
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
--- NOTE | 2018-08-10 18:07 | PN ---
DATE: 08/10/2018 SUBJECTIVE: This 47-year-old female remains hospitalized on the psychiatric ritter at [facility] on the morning of 08/10/2018. The patient is cooperating with psychiatric nursing staff. She remains without complaints of chest pain or shortness of breath, and is currently attending group sessions and has not psychotropic medication adjusted for exacerbation of bipolar psychosis and chronic schizophrenia. PHYSICAL EXAMINATION: VITAL SIGNS: Temperature was 97.8, respirations 20, pulse 63, blood pressure 115/79. Physical exam is unchanged. LABORATORY DATA: Today's lab work shows white count 7600, hemoglobin 12.2, hematocrit 36.6, platelets 216,000. Sodium 138, K 4.5, chloride 104, bicarb 28, BUN 15, creatinine 0.7, random blood sugar 87, calcium 9.2. IMPRESSION: A 47-year-old female with obesity, hyperlipidemia, chronic hypertension, hypothyroidism, bipolar psychosis, schizoaffective disorder, admitted with acute paranoia and guarded behavior. PLAN: The plan is to continue p.r.n. Ativan, Ambien, Benadryl, Cozaar, Desyrel, Haldol, Paxil, Seroquel and Synthroid. She remains on a low cholesterol diet, and disposition will be decided based on Dr. Holbrook from Psychiatry interactions with this patient. Verito Oh MD MTDD
[2018-08-11] MEDS: Levothyroxine 50 MCG TAB PO SCH (05:36)
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
--- NOTE | 2018-08-11 14:15 | PN ---
DATE: 08/11/2018 SUBJECTIVE: This 47-year-old female remains hospitalized in the psychiatric ritter at the [facility] on the morning of 08/11/2018. She is being followed by Dr. Holbrook from Psychiatry who comments that the patient remains depressed, anxious and withdrawn given her social situation at home. The patient also tends to fixate on untrue issues including the fact that she feels she had a myocardial infarction despite being told repeatedly that 2D echocardiogram is entirely normal. PHYSICAL EXAMINATION: VITAL SIGNS: Shows temperature 98, respirations 18, pulse 67, blood pressure 115/79. Physical exam is unchanged. LABORATORY DATA: White count 7600, hemoglobin 12.2, hematocrit 36.6, platelets 216,000. Sodium 138, K 4.5, chloride 104, bicarb 28, BUN 15, creatinine 0.7 and random blood sugar 87 with a calcium of 9.2. IMPRESSION: A 47-year-old female with obesity, hypertension, hypothyroidism, bipolar psychosis, schizoaffective disorder and history of noncompliance with medication as an outpatient. I will continue her on Synthroid, Cozaar, low cholesterol, heart-healthy diet, and the patient has been counseled regarding weight reduction efforts. She continues on psychotropics including Ambien, Ativan, Desyrel, Paxil, and Seroquel under the direction of Dr. Holbrook. Verito Oh MD
[2018-08-12] MEDS: Levothyroxine 50 MCG TAB PO SCH (05:17)
[2018-08-12 07:21] VITALS: RESP 20
--- NOTE | 2018-08-12 14:35 | PN ---
DATE: 08/12/2018 SUBJECTIVE: This 47-year-old female remains hospitalized in the psychiatric unit at the [facility] on the morning of 08/12/2018. Dr. Holbrook has commented that the patient remains depressed over social situations in her home life including her lack of a stable living domicile and that she is not cleared for discharge on a psychiatric basis at the present time. She is exhibiting mood lability, has sexual preoccupation as well as religiosity, and according to nursing staff has had no complaints of chest pain or shortness of breath. PHYSICAL EXAMINATION: VITAL SIGNS: Temperature 97.9, respirations 20, pulse 71 and blood pressure 118/75. Physical exam is unchanged. LABORATORY DATA: White count 7600, hemoglobin 12.2, hematocrit 36.2, platelets 216,000. Sodium 138, K 4.5, chloride 104, bicarb 28, BUN 15, creatinine 0.5 and random blood sugar 87. IMPRESSION: A 47-year-old female with obesity, hypertension, hypothyroidism, history of noncompliance with medication as an outpatient and comorbidities of anxiety, depression, bipolar psychosis and schizoaffective disorder as well as hyperlipidemia. PLAN: She will continue on Synthroid, Seroquel, Paxil, Haldol, Desyrel, Cozaar, p.r.n. Ativan and p.r.n. Ambien. She is ordered to have a heart-healthy, low-cholesterol diet and continues to be monitored regarding her clinical progress. Verito Oh MD
--- NOTE | 2018-08-12 19:06 | RAD ---
Date of service: 08/12/2018 PROCEDURE: Right Foot Radiographs. HISTORY: edema COMPARISON: None. FINDINGS: BONES: Normal. No fracture. JOINTS: Normal. SOFT TISSUES: Normal. OTHER FINDINGS: None. IMPRESSION: Normal right foot radiographs.
--- NOTE | 2018-08-12 19:06 | US ---
PROCEDURE: Right lower extremity venous US HISTORY: Leg pain and swelling. Evaluate for DVT. PHYSICIAN(S): Colby Urrutia M.D. TECHNIQUE: Duplex sonography and color-flow Doppler with graded compression were used to evaluate the deep venous system of the right lower extremity. FINDINGS: The visualized deep venous system of the right lower extremity is sonographically normal and compressible. Normal waveforms and augmentation are seen. There is no sonographic evidence for deep venous thrombosis in the visualized segments of the right lower extremity. IMPRESSION: 1. No sonographic evidence for deep venous thrombosis in the visualized segments of the right lower extremity.
--- NOTE | 2018-08-12 20:59 | PN ---
DATE: 08/12/2018 The patient is a 47-year-old [place] female with schizoaffective disorder. She is alert, oriented to three spheres. This is being dictated without the services of the [employer] due to yet another in and all too frequent series of the computer failures, a demoralizing sink of time and energy. The patient is showing some lability. At times, she interacts appropriately and seems in control of her feelings and situation, and other times she becomes withdrawn, anxious and internally preoccupied. She does speak about attending a day program in [place] upon discharge. She indicates a sister is looking for living arrangements in the immediate future, talking about moving with a 70-year-old woman "friend," godmother although she describes this is being a department until she could get something better. We will check with sister regarding the reality of the situation. Blood pressure 108/75, temperature 97.9, pulse rate 84. We will maintain on present medication for now. Handy Holbrook MD/ PhD
[2018-08-13] MEDS: Levothyroxine 50 MCG TAB PO SCH (05:41)
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
--- NOTE | 2018-08-13 15:08 | PCM.BM ---
Treatment Plan Problems - Problems identified on initial assessmt Ineffective coping Date Initiated: 07/31/18 Time Initiated: 20:00 Assessment reference: NA Status: Active Altered thought pattern Date Initiated: 07/31/18 Time Initiated: 20:00 Assessment reference: NA Status: Active Medication compliant Date Initiated: 07/31/18 Time Initiated: 20:00 Assessment reference: NA Status: Active Treatment assets and liabiliti Patient Assests: cooperative, self-reliant, ADL independent, good support system, negotiates basic needs Patient Liabilities: financial problems - Milieu Protocol Maintain good personal hygiene: daily Encourage regular showers, daily Remind patient to perform daily oral care, daily Assist patient to perform ADL's Maintain personal safety: daily Educate patient to report safety concerns to staff, daily Monitor environment for contraband/sharps Medication safety: Monitor for expected outcome, potential side effects: daily, Assess barriers to learning: daily, Assess readiness for medication education: daily Milieu Narrative: Patient being engaged in individual and group milieu therapy to help focus on the reality of her situation and what she might do about this in the future. Informs me that her sister has become involved in her situation and in her care. This in itself can be considered therapeutic. Her sister is apparently looking to see if she could rent an apartment for her and Ariel. That this would direct address leave the patient's fear of homelessness and abandonment. Patient also agrees that she should be attending a day program and has identified one in [place]. We will pursue this. On August 06 it is noted that the patient continues to show an improved mood, affect, ability to plan for future. If this continues over the next several days there will be a level of comfort reach that the patient can be discharged. Her sister is working on finding her a suitable housing situation in an apartment in the [place]. Furthermore the patient is committing herself to attending a day program upon discharge. These are all considered to be favorable developments. Patient is showing a continued improvement. If this continues she will be able to resume her independent living this coming Friday although it is not clear where she will be living. Her sister has been working on securing an apartment for her and Ariel. This is a knowledge of involvement and the possibility of a living ASI TE has greatly benefited the patient and her mood state On August 10 patient seems more depressed. Will check with sister to see what might have happened with regard to family will the patient denies anything specific. In any event he is once again more withdrawn, passive, isolative. It is unclear if this is a "momentary" lump or yet another relapse. Have reviewed case with nursing and with social work. On August 11 awaiting stabilization. The patient still exhibits some mood lability and some presumed sexual preoccupation tends to get her into trouble we will reassess situation tomorrow. On August 13 in treatment team patient did agree to have a family meeting to chart course for future action. Patient's insight and judgment are lacking at this juncture. Patient would be at risk have for personal harm should she be discharged at this juncture. Family Contact Family involvement: Famliy/SO not involved Family contact: Patient agrees to contact, Patient declines to allow family contact at present Discharge/Continuing Care - Education Needs Education Needs: Patient Medication, Patient Coping Skills - Discharge Discharge Criteria: Normal sleep pattern, Ability to care for self - Treatment Team Participation Patient/Family/SO Statement: Patient being engaged in individual and group milieu therapy to help focus on the reality of her situation and what she might do about this in the future. Informs me that her sister has become involved in her situation and in her care. This in itself can be considered therapeutic. Her sister is apparently looking to see if she could rent an apartment for her [place]. That this would direct address leave the patient's fear of homelessness and abandonment. Patient also agrees that she should be attending a day program and has identified one in [place]. We will pursue this. On August 06 it is noted that the patient continues to show an improved mood, affect, ability to plan for future. If this continues over the next several days there will be a level of comfort reach that the patient can be discharged. Her sister is working on finding her a suitable housing situation in an apartme nt in the [place]. Furthermore the patient is committing herself to attending a day program upon discharge. These are all considered to be favorable developments. Patient is showing a continued improvement. If this continues she will be able to resume her independent living this coming Friday although it is not clear where she will be living. Her sister has been working on securing an apartment for her and Ariel. This is a knowledge of involvement and the possibility of a living ASI TE has greatly benefited the patient and her mood state On August 10 patient seems more depressed. Will check with sister to see what might have happened with regard to family will the patient denies anything specific. In any event he is once again more withdrawn, passive, isolative. It is unclear if this is a "momentary" lump or yet another relapse. Have reviewed case with nursing and with social work. On August 11 awaiting stabilization. The patient still exhibits some mood lability and some presumed sexual preoccupation tends to get her into trouble we will reassess situation tomorrow. On August 13 in treatment team patient did agree to have a family meeting to chart course for future action. Patient's insight and judgment are lacking at this juncture. Patient would be at risk have for personal harm should she be discharged at this juncture. Treatment Plan Review - Problem Ineffective coping Time Initiated: 20:00 Altered thought pattern Time Initiated: 20:00 Medication compliant Time Initiated: 20:00
--- NOTE | 2018-08-13 15:58 | PN ---
DATE: 08/13/2018 SUBJECTIVE: This 47-year-old female was examined on the psychiatric ritter of the [facility] on the morning of , 08/13/2018. Her case was reviewed in detail with nurse Bettye Nettles, registered nurse. The patient was complaining of pedal edema of her right foot in the absence of trauma. I ordered and reviewed right foot x-rays and a venous Doppler ultrasound of the right leg which were unremarkable for DVT or fracture. The patient feels that this is a chronic problem that she attributes to her psychotropic medication. PHYSICAL EXAMINATION: VITAL SIGNS: Temperature is 98, respirations 20, pulse 61 and blood pressure 111/75. Physical exam remains unchanged. IMPRESSION: Chronic pedal edema in an obese patient with chronic hypertension, hyperlipidemia, history of hypothyroidism with therapeutic TSH and comorbidities of bipolar psychosis, schizoaffective disorder and history of noncompliance with diet, medication and followup in her past. PLAN: As discussed with the patient, I will order antiembolism open toed stockings for both legs. I will lower her Cozaar to 25 mg p.o. daily and add hydrochlorothiazide p.o. daily and have instructed the patient to elevate her feet as much as possible during the day. She will continue on Synthroid, Ambien, Ativan, Cozaar, Detrol, Haldol, Paxil and Seroquel. All of this was reviewed with the patient at bedside. Verito Oh MD
[2018-08-14] MEDS: Levothyroxine 50 MCG TAB PO SCH (05:59)
--- NOTE | 2018-08-14 13:15 | PN ---
DATE: 08/14/2018 SUBJECTIVE: This 47-year-old female was examined at her bedside in the psychiatric ritter of the [facility] on the morning of 08/14/2018. This exam was done in the presence of Ok Bob, registered nurse. I did review the patient's right foot x-rays and right venous Doppler, both of which were unremarkable. There was no evidence of foot fracture or DVT and the patient was lying in bed with her leg elevated. There was improvement in the pedal edema noted. OBJECTIVE: VITAL SIGNS: Her temperature was 98.2, respirations 20, pulse 64 and blood pressure 101/53, previously 128/89. Physical exam remains unchanged with decreased edema in both feet. LABORATORY DATA: Her white count is 7600, hemoglobin 12.2, hematocrit 36.6, platelets 216,000. TSH is normal at 1.25, BUN 15, creatinine 0.7. IMPRESSION: A 47-year-old female with obesity, hypertension, hypothyroidism and comorbidities of bipolar psychosis and schizoaffective disorder with dependent pedal edema, probably on the basis of varicose vein. PLAN: Plan is discussed with nurse, Sterling is to place open toed antiembolism light compression stockings on the patient every morning to be removed at bedtime daily, keep her legs elevated when in bed and she will continue on decreased Cozaar 25 mg p.o. daily and hydrochlorothiazide 25 mg p.o. daily. All of the above was reviewed at the bedside with the patient and nurse, Lisbeth present. All questions were answered. Verito Oh MD MTDD
--- NOTE | 2018-08-14 14:11 | CP.PCM.CON ---
<Hebert Ureña - Last Filed: 08/15/18 12:09> History of Present Illness - History of Present Illness History of Present Illness: Podiatry consult note for Dr. Garrison 47-year-old F with PMH of schizoaffective disorder, bipolar disorder, and suicidal ideation was seen and evaluated for xerosis to bilateral feet. Patient complains of itching as well. Patient denies any pain to her feet. Patient reports her feet have become swollen since being on the Psychiatric medications Patient denies any other complaints at this time. Patient was seen to be resting in her bed. Review of Systems - Review of Systems All systems: reviewed and no additional remarkable complaints except Review of Systems: As per HPI Past Patient History - Infectious Disease Hx of Infectious Diseases: None - Tetanus Immunizations Tetanus Immunization: Unknown - Past Social History Smoking Status: Never Smoked - CARDIAC Hx Cardiac Disorders: Yes - PULMONARY Hx Respiratory Disorders: No Hx Tuberculosis: Yes (no active s/s) - NEUROLOGICAL Hx Neurological Disorder: No - HEENT Hx HEENT Problems: No - RENAL Hx Chronic Kidney Disease: No - ENDOCRINE/METABOLIC Hx Endocrine Disorders: Yes Hx Diabetes Mellitus Type 2: (borderline) - HEMATOLOGICAL/ONCOLOGICAL Hx Blood Disorders: No - INTEGUMENTARY Hx Dermatological Problems: No - MUSCULOSKELETAL/RHEUMATOLOGICAL Hx Musculoskeletal Disorders: No - GASTROINTESTINAL Hx Gastrointestinal Disorders: No - GENITOURINARY/GYNECOLOGICAL Hx Genitourinary Disorders: No Other/Comment: swollen legs and feet - PSYCHIATRIC Hx Emotional Abuse: Yes Hx Substance Use: No - SURGICAL HISTORY Hx Eye Surgery: Yes - ANESTHESIA Hx Anesthesia: No Meds Allergies/Adverse Reactions: Allergies Allergy/AdvReac Type Severity Reaction Status Date / Time bleach Allergy Severe WHEEZING Uncoded 08/08/18 20:06 hot chillies AdvReac WHEEZING Uncoded 08/08/18 20:06 - Medications Medications: Current Medications Diphenhydramine HCl (Benadryl) 50 mg PO Q6H PRN PRN Reason: Agitation Last Admin: 08/13/18 00:54 Dose: 50 mg Diphenhydramine HCl (Benadryl) 50 mg IM Q6H PRN PRN Reason: agitation/aggression Haloperidol (Haldol) 5 mg PO Q6H PRN; Protocol PRN Reason: agitation/psychosis Haloperidol Lactate (Haldol) 5 mg IM Q6H PRN; Protocol PRN Reason: agitation/psychosis Hydrochlorothiazide (Hydrodiuril) 25 mg PO DAILY CHLOE Last Admin: 08/14/18 09:36 Dose: 25 mg Levothyroxine Sodium (Synthroid) 50 mcg PO 0600 CHLOE Last Admin: 08/14/18 05:59 Dose: 50 mcg Lorazepam (Ativan) 2 mg PO Q6H PRN; Protocol PRN Reason: anxiety/agitation Last Admin: 08/12/18 12:14 Dose: 2 mg Lorazepam (Ativan) 2 mg IM Q6 PRN; Protocol PRN Reason: severe agitation Lorazepam (Ativan) 0.5 mg PO BID CHLOE; Protocol Last Admin: 08/14/18 09:35 Dose: 0.5 mg Losartan Potassium (Cozaar) 25 mg PO DAILY CHLOE Last Admin: 08/14/18 09:36 Dose: 25 mg Paroxetine HCl (Paxil) 40 mg PO HS CHLOE Last Admin: 08/13/18 21:37 Dose: 40 mg Quetiapine Fumarate (Seroquel) 400 mg PO HS CHLOE; Protocol Last Admin: 08/13/18 21:37 Dose: 400 mg Quetiapine Fumarate (Seroquel) 300 mg PO DAILY CHLOE; Protocol Last Admin: 08/14/18 09:35 Dose: 300 mg Trazodone HCl (Desyrel) 50 mg PO HS CHLOE Last Admin: 08/13/18 21:37 Dose: 50 mg Zolpidem Tartrate (Ambien) 10 mg PO HS PRN; Protocol PRN Reason: Insomnia Last Admin: 08/12/18 21:10 Dose: 10 mg Physical Exam - Constitutional Appears: Well, Non-toxic, No Acute Distress - Head Exam Head Exam: ATRAUMATIC, NORMOCEPHALIC - Extremities Exam Additional comments: Bilateral Lower Extremity Exam VASC: DP and PT 1/4 bialterally, likely secondary to swelling, CFT less than 3 seconds X 10, non-pitting edema noted to the dorsum of both feet DERM: plantar xerosis noted bilaterally, no open wounds, no clinical signs of infection ORTHO: MSK 5/5, no pain with any ranges of motion NEURO: grossly intact - Psychiatric Exam Psychiatric exam: Normal Affect, Normal Mood Results - Vital Signs Recent Vital Signs: Last Vital Signs Temp 98.2 F 08/14/18 07:14 Pulse 64 08/14/18 07:14 Resp 20 08/14/18 07:14 BP 101/53 L 08/14/18 07:14 Pulse Ox 98 07/31/18 18:15 - Labs Result Diagrams: 08/10/18 07:00 08/10/18 07:00 Assessment & Plan - Assessment and Plan (Free Text) Assessment: 47 y/o female patient seen and evaluated for bilateral plantar feet xerosis Plan: Patient seen and evaluated Plan discussed with Dr. Garrison Chart, labs and vitals reviewed Ammonium Lactate ordered to apply to both Podiatry will continue to follow patient Thank you for the consult - Date & Time Date: 08/15/18 Time: 12:09 <Hao Garrison - Last Filed: 08/17/18 09:27> Meds - Medications Medications: Current Medications Diphenhydramine HCl (Benadryl) 50 mg PO Q6H PRN PRN Reason: Agitation Last Admin: 08/13/18 00:54 Dose: 50 mg Diphenhydramine HCl (Benadryl) 50 mg IM Q6H PRN PRN Reason: agitation/aggression Haloperidol (Haldol) 5 mg PO Q6H PRN; Protocol PRN Reason: agitation/psychosis Haloperidol Lactate (Haldol) 5 mg IM Q6H PRN; Protocol PRN Reason: agitation/psychosis Hydrochlorothiazide (Hydrodiuril) 25 mg PO DAILY CHLOE Last Admin: 08/17/18 09:07 Dose: 25 mg Lactic Acid (Lac-Hydrin 12% Cream (140 G)) 0 ea TOP DAILY CHLOE Last Admin: 08/17/18 09:09 Dose: 1 applic Levothyroxine Sodium (Synthroid) 50 mcg PO 0600 CHLOE Last Admin: 08/17/18 06:08 Dose: 50 mcg Lorazepam (Ativan) 2 mg PO Q6H PRN; Protocol PRN Reason: anxiety/agitation Last Admin: 08/12/18 12:14 Dose: 2 mg Lorazepam (Ativan) 2 mg IM Q6 PRN; Protocol PRN Reason: severe agitation Lorazepam (Ativan) 0.5 mg PO BID CHLOE; Protocol Last Admin: 08/17/18 09:07 Dose: 0.5 mg Losartan Potassium (Cozaar) 25 mg PO DAILY CHLOE Last Admin: 08/17/18 09:08 Dose: 25 mg Paroxetine HCl (Paxil) 40 mg PO HS CHLOE Last Admin: 08/16/18 21:03 Dose: 40 mg Quetiapine Fumarate (Seroquel) 400 mg PO HS CHLOE; Protocol Last Admin: 08/16/18 21:03 Dose: 400 mg Quetiapine Fumarate (Seroquel) 300 mg PO DAILY CHLOE; Protocol Last Admin: 08/16/18 10:05 Dose: 300 mg Trazodone HCl (Desyrel) 50 mg PO HS CHLOE Last Admin: 08/16/18 21:03 Dose: 50 mg Zolpidem Tartrate (Ambien) 10 mg PO HS PRN; Protocol PRN Reason: Insomnia Last Admin: 08/15/18 21:26 Dose: 10 mg Results - Vital Signs Recent Vital Signs: Last Vital Signs Temp 98.1 F 08/17/18 07:21 Pulse 59 L 08/17/18 09:08 Resp 20 08/17/18 07:21 BP 101/63 08/17/18 09:08 Pulse Ox 98 07/31/18 18:15 - Labs Result Diagrams: 08/10/18 07:00 08/10/18 07:00 Attending/Attestation - Attestation I have personally seen and examined this patient.: Yes I have fully participated in the care of the patient.: Yes I have reviewed all pertinent clinical information: Yes
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
[2018-08-15] MEDS: Levothyroxine 50 MCG TAB PO SCH (06:35)
--- NOTE | 2018-08-15 10:51 | PCM.PYCHPN ---
Psychiatric Progress Note - Psychiatric Progress Note Patient seen today, length of contact: 30min Patient Chief Complaint: "I feel fine, nothing is bothering me" Problems Identified/Issues Discussed: Risk/benefits and alternatives of medications discussed, suicide/ homicide prevention, past psychiatric h/o, current psychiatric symptoms, medical problems, risk/benefits and alternatives of medications, medications compliance, coping strategies, substance abuse h/o, relapse prevention, importance of follow up with psychiatrist and therapist, discharge plan. Today patient was educated about ECT, patient does not want to have ECT treatment. Medical Problems: Chronic hypertension and Hypothyroidism Diagnostic Results: 07/31/18 14:20 07/31/18 14:20 Lab Results 08/01/18 07:30: Triglycerides 110, Cholesterol 205 H, LDL Cholesterol Direct 124, HDL Cholesterol 50 08/01/18 07:30: RPR Nonreactive 08/01/18 07:30: TSH 3rd Generation 1.25 08/01/18 07:30: Fasting Glucose 91 07/31/18 14:20: Alcohol, Quantitative < 10 07/31/18 14:20: Salicylates < 1 L, Acetaminophen < 10.0 L 07/31/18 14:20: Sodium 138, Potassium 4.0, Chloride 105, Carbon Dioxide 24, Anion Gap 14, BUN 13, Creatinine 0.6 L, Est GFR ( Amer) > 60, Est GFR (Non-Af Amer) > 60, Random Glucose 116 H, Calcium 9.5, Total Bilirubin 0.5, AST 30, ALT 37, Alkaline Phosphatase 88, Total Protein 7.6, Albumin 4.4, Globulin 3.2, Albumin/Globulin Ratio 1.4 07/31/18 14:20: WBC 7.4, RBC 4.40, Hgb 13.1, Hct 38.6, MCV 87.7 D, MCH 29.8, MCHC 33.9, RDW 12.0, Plt Count 257, MPV 9.7, Neut % (Auto) 72.0 H, Lymph % (Auto) 24.2, [place] % (Auto) 3.8, Eos % (Auto) 0.3 L, Baso % (Auto) 0.1, Lymph # (Auto) 1.8, [place] # (Auto) 0.3, Eos # (Auto) 0.0, Baso # (Auto) 0.01, Absolute Neuts (auto) 5.02 07/31/18 14:15: Urine Opiates Screen Negative, Urine Methadone Screen Negative, Ur Barbiturates Screen Negative, Ur Phencyclidine Scrn Negative, Ur Amphetamines Screen Negative, U Benzodiazepines Scrn Negative, U Oth Cocaine Metabols Negative, U Cannabinoids Screen Negative 07/31/18 14:15: Urine Color Yellow, Urine Appearance Clear, Urine pH 7.0, Ur Specific [place] 1.015, Urine Protein Negative, Urine Glucose (UA) Negative, Urine Ketones Negative, Urine Blood Negative, Urine Nitrate Negative, Urine Bilirubin Negative, Urine Urobilinogen 0.2, Ur Leukocyte Esterase Negative Vital Signs Temp Pulse Resp BP Pulse Ox 08/02/18 09:00 70 146/96 H 08/02/18 07:24 97.6 F 70 20 146/96 H 08/01/18 11:53 68 128/83 08/01/18 07:00 97.6 F 68 18 128/83 07/31/18 18:15 76 18 134/67 98 07/31/18 15:36 83 18 138/79 98 07/31/18 13:09 98.6 F 100 H 20 142/93 H 96 Temp Pulse Resp BP Pulse Ox 98.2 F 70 20 112/60 98 08/14/18 07:14 08/15/18 09:28 08/14/18 07:14 08/15/18 09:28 07/31/18 18:15 DSM 5 Symptoms Update: Covering for Dr. Holbrook: Shortly patient is a 47-year-old F with PMH of schizoaffective disorder, bipolar disorder, and suicidal ideation who [place] [facility] with a chief complaint of bilateral wrist pain x2 days, during emergency room evaluation patient presented to be disorganized, religiously preoccupied, presented to be psychotic, referred for PES evaluation, PES contacted outpatient psychiatrist Dr. Holbrook or reported patient missed her previous appointment, most likely she was noncompliant with the medications, as a result patient became psychotic, disorganized, and patient required further evaluation and stabilization and observation. Patient was seen today in her room, patient presented to be relatively well, pat ient appears to be annoyed by this automatic typewriter inspector, patient reported that she feels fine, "nothing bothers me", patient denied feeling of hopelessness or helplessness. As per staff patient has episodes when she will be acting inappropriately majority of the time towards male, for example she would wipe other male patient mouth while he was eating, cross boundaries, pt was educated multiple times not to touch other patients, patient needs redirection. but overall no violence, no agitation. Patient denied any visual hallucinations but in the emergency room patient mentioned that she is sees "demons and angels,", patient is oddly related but not agitated, not aggressive. As per staff patient is compliant with the medications, pacing in the unit, had fair appetite and sleep. So far patient tolerates medications well, no side effects observed or reported, aims 0, no EPS. Impression: as per history of schizoaffective disorder Medication Change: No ( ) Medical Record Reviewed: Yes Consults ordered or reviewed: Medical consult appreciated, please see notes for more detailed information. Mental Status Examination - Cognitive Function Orientation: Person, Place, Situation, Time Memory: Intact Attention: WNL Concentration: WNL Association: WNL Fund of Knowledge: WNL - Mood Mood: Depressed (Irritable), Neutral - Affect Affect: Constricted (Irritable) - Speech Speech: Soft - Formal Thought Process Formal Thought Process: Delusions (Chronic), Paranoia (Chronic) - Suicidal Ideation Suicidal Ideation: No - Homicidal Ideation Homicidal Ideation: No Goal/Treatment Plan - Goal/Treatment Plan Need for Continued Stay: Remain at risks for inpatient hospitalization, Severe depression anxiety, Discharge may exacerbated symptoms, Severe functional impairment Progress Toward Problem(s) and Goals/Treatment Plan: Milieu/structure/supportive therapy SW consultation for discharge plan and social issues Med management We will continue current medications Medical consultation appreciated Family involvement Follow up on labs Will monitor closely Pt was educated about risk/benefits and alternatives of medications, coping strategies (safety plan, suicide prevention), relapse prevention, importance of follow up with psychiatrist and therapist, stay away from drugs/alcohol/smoking Estimated Date of D/C: 08/18/18
[2018-08-15] MEDS: Ammonium Lactate 12% Cream (140 g) TOP SCH (13:53)
--- NOTE | 2018-08-15 14:16 | PN ---
DATE: 08/15/2018 SUBJECTIVE: This 47-year-old female remains hospitalized on the psychiatric ritter on the morning of 08/15/2018. She is instructed to wear a open toed light control antiembolism stocking to both lower extremities daily and to remove at bedtime. At present her temperature is 98.2, respirations 20, pulse 70 and blood pressure 112/60. Physical exam remains unchanged. IMPRESSION: A 47-year-old female with dependent pedal edema secondary to varicose veins and comorbidities of bipolar psychosis, paranoid schizoaffective disorder, chronic insomnia, anxiety, chronic hypertension, obesity and hypothyroidism. The patient will continue on Synthroid, Seroquel, Paxil, Lac-Hydrin skin cream, HydroDIURIL, hydrochlorothiazide, Desyrel, Cozaar, Ativan, and Ambien. The patient continues to be monitored by Podiatry and Psychiatry and ultimate plan will be for discharge to home when medically stable. Verito Oh MD
[2018-08-16] MEDS: Levothyroxine 50 MCG TAB PO SCH (06:29)
[2018-08-16] MEDS: Ammonium Lactate 12% Cream (140 g) TOP SCH (10:04)
--- NOTE | 2018-08-16 12:00 | PCM.PYCHPN ---
Psychiatric Progress Note - Psychiatric Progress Note Patient seen today, length of contact: 30min Patient Chief Complaint: "I feel fine, nothing is bothering me" Problems Identified/Issues Discussed: Risk/benefits and alternatives of medications discussed, suicide/ homicide prevention, past psychiatric h/o, current psychiatric symptoms, medical problems, risk/benefits and alternatives of medications, medications compliance, coping strategies, substance abuse h/o, relapse prevention, importance of follow up with psychiatrist and therapist, discharge plan. Today patient was educated about ECT, patient does not want to have ECT treatment. Medical Problems: Chronic hypertension and Hypothyroidism Diagnostic Results: 07/31/18 14:20 07/31/18 14:20 Lab Results 08/01/18 07:30: Triglycerides 110, Cholesterol 205 H, LDL Cholesterol Direct 124, HDL Cholesterol 50 08/01/18 07:30: RPR Nonreactive 08/01/18 07:30: TSH 3rd Generation 1.25 08/01/18 07:30: Fasting Glucose 91 07/31/18 14:20: Alcohol, Quantitative < 10 07/31/18 14:20: Salicylates < 1 L, Acetaminophen < 10.0 L 07/31/18 14:20: Sodium 138, Potassium 4.0, Chloride 105, Carbon Dioxide 24, Anion Gap 14, BUN 13, Creatinine 0.6 L, Est GFR ( Amer) > 60, Est GFR (Non-Af Amer) > 60, Random Glucose 116 H, Calcium 9.5, Total Bilirubin 0.5, AST 30, ALT 37, Alkaline Phosphatase 88, Total Protein 7.6, Albumin 4.4, Globulin 3.2, Albumin/Globulin Ratio 1.4 07/31/18 14:20: WBC 7.4, RBC 4.40, Hgb 13.1, Hct 38.6, MCV 87.7 D, MCH 29.8, MCHC 33.9, RDW 12.0, Plt Count 257, MPV 9.7, Neut % (Auto) 72.0 H, Lymph % (Auto) 24.2, [place] % (Auto) 3.8, Eos % (Auto) 0.3 L, Baso % (Auto) 0.1, Lymph # (Auto) 1.8, [place] # (Auto) 0.3, Eos # (Auto) 0.0, Baso # (Auto) 0.01, Absolute Neuts (auto) 5.02 07/31/18 14:15: Urine Opiates Screen Negative, Urine Methadone Screen Negative, Ur Barbiturates Screen Negative, Ur Phencyclidine Scrn Negative, Ur Amphetamines Screen Negative, U Benzodiazepines Scrn Negative, U Oth Cocaine Metabols Negative, U Cannabinoids Screen Negative 07/31/18 14:15: Urine Color Yellow, Urine Appearance Clear, Urine pH 7.0, Ur Specific [place] 1.015, Urine Protein Negative, Urine Glucose (UA) Negative, Urine Ketones Negative, Urine Blood Negative, Urine Nitrate Negative, Urine Bilirubin Negative, Urine Urobilinogen 0.2, Ur Leukocyte Esterase Negative Vital Signs Temp Pulse Resp BP Pulse Ox 08/02/18 09:00 70 146/96 H 08/02/18 07:24 97.6 F 70 20 146/96 H 08/01/18 11:53 68 128/83 08/01/18 07:00 97.6 F 68 18 128/83 07/31/18 18:15 76 18 134/67 98 07/31/18 15:36 83 18 138/79 98 07/31/18 13:09 98.6 F 100 H 20 142/93 H 96 Temp Pulse Resp BP Pulse Ox 98.2 F 70 20 112/60 98 08/14/18 07:14 08/15/18 09:28 08/14/18 07:14 08/15/18 09:28 07/31/18 18:15 DSM 5 Symptoms Update: Covering for Dr. Holbrook: Shortly patient is a 47-year-old F with PMH of schizoaffective disorder, bipolar disorder, and suicidal ideation who presents to [facility] Department with a chief complaint of bilateral wrist pain x2 days, during emergency room evaluation patient presented to be disorganized, religiously preoccupied, presented to be psychotic, referred for PES evaluation, PES contacted outpatient psychiatrist Dr. Holbrook or reported patient missed her previous appointment, most likely she was noncompliant with the medications, as a result patient became psychotic, disorganized, and patient required further evaluation and stabilization and observation. Patient appears to be annoyed by this sql report writer, patient reported that she feels fi ne, "nothing bothers me", patient denied feeling of hopelessness or helplessness. As per staff last week patient has episodes when she will be acting inappropriately majority of the time towards male, for example she would wipe other male patient mouth while he was eating, cross boundaries, pt was educated multiple times not to touch other patients, patient needs redirection. over the weekend there is no such episodes observed or reported. Patient denied any visual hallucinations but in the emergency room patient mentioned that she is sees "demons and angels,", patient is oddly related but not agitated, not aggressive. As per staff patient is compliant with the medications, pacing in the unit, had fair appetite and sleep. So far patient tolerates medications well, no side effects observed or reported, aims 0, no EPS. Impression: as per history of schizoaffective disorder Medication Change: No ( ) Medical Record Reviewed: Yes Mental Status Examination - Cognitive Function Orientation: Person, Place, Situation, Time Memory: Intact Attention: WNL Concentration: WNL Association: WNL Fund of Knowledge: WNL - Mood Mood: Depressed (Irritable), Neutral - Affect Affect: Constricted (Irritable) - Speech Speech: Soft - Formal Thought Process Formal Thought Process: Delusions (Chronic), Paranoia (Chronic) - Suicidal Ideation Suicidal Ideation: No - Homicidal Ideation Homicidal Ideation: No Goal/Treatment Plan - Goal/Treatment Plan Need for Continued Stay: Remain at risks for inpatient hospitalization, Severe depression anxiety, Discharge may exacerbated symptoms, Severe functional impairment Progress Toward Problem(s) and Goals/Treatment Plan: Milieu/structure/supportive therapy SW consultation for discharge plan and social issues Med management We will continue current medications Medical consultation appreciated Family involvement Follow up on labs Will monitor closely Pt was educated about risk/benefits and alternatives of medications, coping strategies (safety plan, suicide prevention), relapse prevention, importance of follow up with psychiatrist and therapist, stay away from drugs/alcohol/smoking Estimated Date of D/C: 08/18/18
--- NOTE | 2018-08-16 19:07 | PN ---
DATE: 08/16/2018 SUBJECTIVE: This 47-year-old female remains hospitalized in the [facility] on the afternoon of 08/16/2018. She has been treated for multiple issues including acute bipolar psychosis exacerbation with chronic paranoid schizophrenia and medical comorbidities of obesity, hypertension, hypothyroidism, and varicose vein issues with her both lower extremities causing some pedal edema. The patient has been advised to wear open toe light compression antiembolism stockings during the day and remove them at bedtime. She is also receiving Lac-Hydrin 12% cream to the dry skin of both feet daily. PHYSICAL EXAMINATION: VITAL SIGNS: Today was noted to have a temperature of 97.7, respirations 20, pulse 82, and blood pressure 121/81. Physical exam remains unchanged. LABORATORY DATA: White count 7600, hemoglobin 12.2, hematocrit 36.6, and platelets 216,000. Sodium 138, K 4.5, chloride 104, bicarb 28, BUN 15, creatinine 0.7, and random blood sugar 87 with a calcium of 9.2. IMPRESSION AND PLAN: A 47-year-old female with decompensated bipolar psychosis, paranoid schizoaffective disorder, insomnia, anxiety, hypertension, obesity, dry skin syndrome, varicose veins, and hypothyroidism. The plan is to continue Synthroid, Seroquel, Paxil, Lac-Hydrin 12% cream to dry skin, hydrochlorothiazide, Haldol, Desyrel, Cozaar, Ativan, and Ambien. Once the patient is psychiatrically cleared, she will be discharged to home and followed as an outpatient by her private medical physician regarding her medical issues. Verito Oh MD
[2018-08-17] MEDS: Levothyroxine 50 MCG TAB PO SCH (06:08)
[2018-08-17] MEDS: Ammonium Lactate 12% Cream (140 g) TOP SCH (09:09)
--- NOTE | 2018-08-17 12:12 | PN ---
DATE: 08/17/2018 SUBJECTIVE: This 47-year-old female was examined at her bedside on the psychiatric ritter of the [facility] on the morning of Friday, August 17, 2018. Present for this interview was the patient. She was lying in bed wearing antiembolism stockings and pedal edema was markedly improved. She denied any fever, chills, chest pain or shortness of breath but did complain of occasional GERD. PHYSICAL EXAMINATION: VITAL SIGNS: Her temperature was 98.1, respirations 20, pulse 59 and blood pressure 101/63. HEENT: Head normocephalic and atraumatic. Eyes: No icterus. Ears: Clear. Throat: Noninjected. NECK: Supple. HEART: Was regular, S1 and S2. LUNGS: Clear. ABDOMEN: Soft. EXTREMITIES: Decreased pedal edema. The patient was wearing antiembolism stockings. SKIN: Without rash. NEUROLOGICAL: Intact. PSYCHOLOGICAL: Alert. VASCULAR: Legs warm to touch. LABORATORY DATA: White count 7600, hemoglobin 12.2, hematocrit 36.6 and platelets 216,000. Sodium 138, K 4.5, chloride 104, bicarb 28, BUN 15, creatinine 0.7, random blood sugar 87 and calcium 9.2. IMPRESSION: This is a 47-year-old female with obesity, hyperlipidemia, hypothyroidism, chronic hypertension, bipolar psychosis, and paranoid schizoaffective disorder. PLAN: Continue medication including p.r.n. Ambien, Ativan, Benadryl, Desyrel, Haldol, Seroquel, Synthroid, Paxil, Lac-Hydrin skin cream, Cozaar. The patient was instructed regarding her gastroesophageal reflux disease and a lengthy discussion regarding foods to be eliminated, no smoking, no drinking, avoiding alcohol, citrus, spicy and tomato based foods was reviewed. The patient will continue on a soft bland heart-healthy diet and based on clinical progress will be readied for discharge by Dr. Holbrook from Psychiatry. Greater than 30 minutes was spent at the bedside with the patient regarding all of the above. All questions were answered. Verito Oh MD [facility] # [id number]
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
[2018-08-18] MEDS: Levothyroxine 50 MCG TAB PO SCH (06:12)
[2018-08-18] MEDS: Ammonium Lactate 12% Cream (140 g) TOP SCH (14:17)
--- NOTE | 2018-08-18 14:50 | PN ---
DATE: 08/18/2018 SUBJECTIVE: This 47-year-old female remains hospitalized at the [facility] on the morning of 08/18/2018. She is wearing antiembolism stockings, tolerating Cozaar and hydrochlorothiazide dose adjusted and is being followed by Social Service in anticipation of discharge in the near future under the direction of Dr. Holbrook from Psychiatry. PHYSICAL EXAMINATION: VITAL SIGNS: Temperature 97.8, respirations 20, pulse 76 and blood pressure 114/68. Physical exam remains unchanged. LABORATORY DATA: White count 7600, hemoglobin 12.2, hematocrit 36.6, platelets 216,000. Sodium 138, K 4.5, chloride 104, bicarb 28, BUN 15, creatinine 0.7, random blood sugar 87, calcium 9.2. Urinalysis is unremarkable. RPR is nonreactive. IMPRESSION: An obese 47-year-old female with chronic hypertension, chronic hypothyroidism, varicose veins and pedal edema, chronic paranoid schizoaffective disorder and bipolar psychosis. PLAN: Continue p.r.n. Ativan, Ambien, Benadryl as well as dose adjusted Cozaar, hydrochlorothiazide, Desyrel and Lac-Hydrin skin cream, Paxil, Seroquel and Synthroid. The patient is instructed to wear antiembolism stockings during the day when awakened to remove at h.s. and to follow up with her PMD upon her discharge to the care of her family. All of the above was reviewed with the patient in detail. Verito Oh MD
--- NOTE | 2018-08-19 01:54 | PN ---
DATE: 08/18/2018 This was initially started on the [employer] system, but the computer has frozen in the middle of that dictation, thus I am dictating this presently by voice recording. I am unable to retrieve laboratory results, although I had earlier reviewed Dr. Oh's most recent consultation treating possible thromboemboli in this patient with appropriate stockings. The patient's mood and affect are improving. She is more social, more pleasant, less self-punitive, less overtly sexually preoccupied (although in general she below a certain level of intensity of sexual preoccupation is able to high to these feelings). She is willing to go live with her sister and her sister's designated apartment with her mother. If this can continue as it appears to now for the past day, she will be able to be discharged tomorrow with a reasonable level of comfort that she will follow up on an outpatient care. She is being maintained on her present medication. Handy Holbrook MD/ PhD
[2018-08-19] MEDS: Levothyroxine 50 MCG TAB PO SCH (06:11)
[2018-08-19 07:21] VITALS: BP 115/69; PULSE 64; TEMP 98
--- NOTE | 2018-08-19 12:13 | CP.PCM.PN ---
<Keyona Ureñajasmeet - Last Filed: 08/19/18 12:10> Subjective - Date & Time of Evaluation Date of Evaluation: 08/19/18 Time of Evaluation: 12:10 - Subjective Subjective: Podiatry progress note for Dr. Garrison 47-year-old F with PMH of schizoaffective disorder, bipolar disorder, and suicidal ideation was seen and evaluated for xerosis to bilateral feet. Patient reports to be using the Ammonium Lactate cream. Patient denies any pain to her feet. Patient denies any other complaints at this time. Patient was seen to be resting in her bed. Objective - Vital Signs/Intake and Output Vital Signs (last 24 hours): Temp Pulse Resp BP Pulse Ox 98.0 F 64 20 115/69 98 08/19/18 07:20 08/19/18 08:22 08/19/18 07:20 08/19/18 08:22 07/31/18 18:15 - Medications Medications: Current Medications Diphenhydramine HCl (Benadryl) 50 mg PO Q6H PRN PRN Reason: Agitation Last Admin: 08/13/18 00:54 Dose: 50 mg Diphenhydramine HCl (Benadryl) 50 mg IM Q6H PRN PRN Reason: agitation/aggression Haloperidol (Haldol) 5 mg PO Q6H PRN; Protocol PRN Reason: agitation/psychosis Haloperidol Lactate (Haldol) 5 mg IM Q6H PRN; Protocol PRN Reason: agitation/psychosis Hydrochlorothiazide (Hydrodiuril) 25 mg PO DAILY CHLOE Last Admin: 08/19/18 08:22 Dose: 25 mg Lactic Acid (Lac-Hydrin 12% Cream (140 G)) 0 ea TOP DAILY CHLOE Last Admin: 08/18/18 14:17 Dose: Not Given Levothyroxine Sodium (Synthroid) 50 mcg PO 0600 CHLOE Last Admin: 08/19/18 06:11 Dose: 50 mcg Lorazepam (Ativan) 2 mg PO Q6H PRN; Protocol PRN Reason: anxiety/agitation Last Admin: 08/12/18 12:14 Dose: 2 mg Lorazepam (Ativan) 2 mg IM Q6 PRN; Protocol PRN Reason: severe agitation Lorazepam (Ativan) 0.5 mg PO BID CHLOE; Protocol Last Admin: 08/19/18 08:21 Dose: 0.5 mg Losartan Potassium (Cozaar) 25 mg PO DAILY CHLOE Last Admin: 08/19/18 08:22 Dose: 25 mg Paroxetine HCl (Paxil) 40 mg PO HS CHLOE Last Admin: 08/18/18 21:25 Dose: 40 mg Quetiapine Fumarate (Seroquel) 400 mg PO HS CHLOE; Protocol Last Admin: 08/18/18 21:26 Dose: 400 mg Quetiapine Fumarate (Seroquel) 300 mg PO DAILY CHLOE; Protocol Last Admin: 08/19/18 08:21 Dose: 300 mg Trazodone HCl (Desyrel) 50 mg PO HS CHLOE Last Admin: 08/18/18 21:25 Dose: 50 mg Zolpidem Tartrate (Ambien) 10 mg PO HS PRN; Protocol PRN Reason: Insomnia Last Admin: 08/15/18 21:26 Dose: 10 mg - Labs Labs: 08/10/18 07:00 08/10/18 07:00 - Constitutional Appears: Well, Non-toxic, No Acute Distress - Head Exam Head Exam: ATRAUMATIC, NORMOCEPHALIC - Extremities Exam Additional comments: Bilateral Lower Extremity Exam VASC: DP and PT 1/4 bialterally, likely secondary to swelling, CFT less than 3 seconds X 10, non-pitting edema noted to the dorsum of both feet R>, improving DERM: plantar xerosis noted bilaterally, no open wounds, no clinical signs of infection ORTHO: MSK 5/5, no pain with any ranges of motion NEURO: grossly intact - Neurological Exam Neurological Exam: Alert, Awake, Oriented x3 - Psychiatric Exam Psychiatric exam: Normal Affect, Normal Mood Assessment and Plan - Assessment and Plan (Free Text) Assessment: 47 y/o female patient seen and evaluated for bilateral plantar feet xerosis Plan: Patient seen and evaluated Plan discussed with Dr. Garrison Chart, labs and vitals reviewed Ammonium Lactate to be continued for bilateral feet upon discharge Patient can followup with Podiatry as out patient Podiatry to sign off on patient at this time Thank you for the consult <Hao Garrison - Last Filed: 08/19/18 17:55> Objective - Vital Signs/Intake and Output Vital Signs (last 24 hours): Temp Pulse Resp BP Pulse Ox 98.0 F 64 20 115/69 98 08/19/18 07:20 08/19/18 08:22 08/19/18 07:20 08/19/18 08:22 07/31/18 18:15 - Labs Labs: 08/10/18 07:00 08/10/18 07:00 Attending/Attestation - Attestation I have personally seen and examined this patient.: Yes I have fully participated in the care of the patient.: Yes I have reviewed all pertinent clinical information, including history, physical exam and plan: Yes
[2018-08-19] MEDS: Ammonium Lactate 12% Cream (140 g) TOP SCH (13:23)
--- NOTE | 2018-08-19 14:09 | PN ---
DATE: 08/19/2018 SUBJECTIVE: This 47-year-old female remains hospitalized on 08/19/2018. She is being treated for bipolar psychosis, schizoaffective disorder, and anxiety. The patient is also under medical therapy for hypothyroidism, dry skin syndrome, pedal edema, chronic hypertension, obesity, and hyperlipidemia. On questioning the patient today. She states that she is doing better with her antiembolism stocking and diuretic and is happy that her Cozaar has been cut in half dose strength. PHYSICAL EXAMINATION: VITAL SIGNS: Temperature 98, respirations 20, pulse 64, and blood pressure 115/69. Physical exam is unchanged. LABORATORY DATA: White count 7600, hemoglobin 12.2, hematocrit 36.6, platelets 216,000. Sodium 138, K 4.5, chloride 104, bicarb 28, BUN 15, creatinine 0.7, random calcium 9.2, glucose 87. IMPRESSION; A 47-year-old female with obesity, hyperlipidemia, hypertension, hypothyroidism, chronic insomnia, anxiety neurosis, bipolar psychosis and schizoaffective disorder, and dry skin syndrome with pedal edema secondary to varicose veins. PLAN: Continue p.r.n. Ativan, Ambien, Benadryl, Cozaar, Desyrel, Haldol, HydroDIURIL, Lac-Hydrin 12% cream to dry skin, Paxil, Seroquel, and Synthroid. Based on clinical progress, she will be ready for discharge to the care of her family with outpatient medical and psychiatric follow-ups recommended. Verito Oh MD MTDEmilia
--- NOTE | 2018-08-20 08:13 | DS ---
DATE: 08/19/2018 HOSPITAL REVIEW The patient was discharged today. She is a 47-year-old [place] female with what appears to be a Schizoaffective disorder. She says that her mood and affect had improved while she was on the psychiatric unit. She states her level of anger, intensity, delusional thinking, sexual preoccupation all abated significantly, such as she made better eye contact, was well fluent in her speech, more pleasant and reasonable without overt psychotic ideation or inappropriate affectivity. She was treated medically for hypothyroidism, dry skin, pedal edema, chronic hypertension, obesity and hyperlipidemia. She was given an antiembolism stocking and diuretics during her stay here. She was seen by Podiatry before her discharge and evaluated for bilateral plantar feet xerosis and prescribed ammonium lactate with recommendation that she continue with outpatient podiatric care. Her medications on discharge were lorazepam 0.5 mg b.i.d., Losartan 25 mg every day, trazodone 50 mg at bedtime, hydrochlorothiazide 25 mg every day, Paxil 40 mg every day, Seroquel 400 mg at bedtime and 300 mg a.m., l-thyroxine 50 mcg every day. It was arranged that her sister would be residing with her when she goes home. Handy Holbrook MD/ PhD
== END 2018-08-19 13:15 | disposition home or self-care (01) | DRG 885 ==
LOC: ED 12:51 → ERH 15:09 → PSYC 20:35
PROVIDERS: ADMIT Psychiatry & Neurology Addiction Medicine; ATTEND Psychiatry & Neurology Addiction Medicine
DX: F25.0 Schizoaffective disorder, bipolar type (principal); R45.851 Suicidal ideations; E03.9 Hypothyroidism, unspecified; E11.9 Type 2 diabetes mellitus without complications; I10 Essential (primary) hypertension; E78.5 Hyperlipidemia, unspecified; E66.9 Obesity, unspecified; E78.00 Pure hypercholesterolemia, unspecified; F51.04 Psychophysiologic insomnia; I25.2 Old myocardial infarction; I27.20 Pulmonary hypertension, unspecified; I83.90 Asymptomatic varicose veins of unspecified lower extremity; K21.9 Gastro-esophageal reflux disease without esophagitis; L29.9 Pruritus, unspecified; M19.90 Unspecified osteoarthritis, unspecified site; Z62.810 Personal history of physical and sexual abuse in childhood; Z63.8 Other specified problems related to primary support group; Z79.890 Hormone replacement therapy; Z79.899 Other long term (current) drug therapy; Z86.11 Personal history of tuberculosis; Z91.11 Patient's noncompliance with dietary regimen; Z91.14 Patient's other noncompliance with medication regimen; Z91.018 Allergy to other foods; Z91.048 Other nonmedicinal substance allergy status; Z68.37 Body mass index [BMI] 37.0-37.9, adult; R94.31 Abnormal electrocardiogram [ECG] [EKG]; L85.3 Xerosis cutis

== ENCOUNTER 2018-11-13 18:33 | Inpatient (IN) | payer MEDICARE, OTHER ==
[2018-11-13 18:35] VITALS: BMI 36.8
--- NOTE | 2018-11-13 18:58 | ED PDOC ---
Arrival/HPI - General Historian: Patient - History of Present Illness Narrative History of Present Illness (Text): 11/13/18 19:57 47 y/o female with PMH of schizoaffective and bipolar disorder presents to the ED c/o auditory hallucinations and "feeling off" x 3 months since her discharge from the psychiatric floor in August. Patient states she takes her medication as prescribed and follows up with her psychiatrist, Dr. Holbrook. Patient reports she called him today with her complaints and was recommended to come in to the ER for admission. Patient states the voices are not telling her to hurt anyone. Patient denies any substance abuse, suicidal ideation, homicidal ideation, visual hallucinations, fever, chills, shortness of breath, chest pain, diarrhea, nausea, vomiting, urinary symptoms, back pain, neck pain, headache, dizziness, or any other complaints. Psychiatrist: Dr. Holbrook Time/Duration: > month (3 months) Symptom Onset: Gradual Symptom Course: Unchanged Activities at Onset: Light Context: Home <Tiera Christianson - Last Filed: 11/14/18 14:12> <Gigi Gaona - Last Filed: 11/14/18 15:11> - General Chief Complaint: Psychiatric Evaluation Time Seen by Provider: 11/13/18 18:35 Past Medical History - Provider Review Nursing Documentation Reviewed: Yes - Infectious Disease Hx of Infectious Diseases: None - Tetanus Immunization Tetanus Immunization: Unknown - Cardiac Hx Cardiac Disorders: Yes - Pulmonary Hx Respiratory Disorders: No Hx Tuberculosis: Yes (no active s/s) - Neurological Hx Neurological Disorder: No - HEENT Hx HEENT Disorder: No - Renal Hx Renal Disorder: No - Endocrine/Metabolic Hx Endocrine Disorders: Yes Hx Diabetes Mellitus Type 2: (borderline) - Hematological/Oncological Hx Blood Disorders: No - Integumentary Hx Dermatological Disorder: No - Musculoskeletal/Rheumatological Hx Musculoskeletal Disorders: No - Gastrointestinal Hx Gastrointestinal Disorders: No - Genitourinary/Gynecological Hx Genitourinary Disorders: No Other/Comment: swollen legs and feet - Psychiatric Hx Bipolar Disorder: Yes Hx Emotional Abuse: Yes Hx Schizophrenia: Yes Hx Substance Use: No - Past Surgical History Past Surgical History: No Previous - Surgical History Hx Eye Surgery: Yes - Anesthesia Hx Anesthesia: No - Suicidal Assessment Feels Threatened In Home Enviroment: No <Tiera Christianson - Last Filed: 11/14/18 14:12> Family/Social History - Physician Review Nursing Documentation Reviewed: Yes Family/Social History: No Known Family HX Smoking Status: Never Smoked Hx Alcohol Use: No Hx Substance Use: No Hx Substance Use Treatment: No <Tiera Christianson - Last Filed: 11/14/18 14:12> Allergies/Home Meds <Justo Christiansonyssa - Last Filed: 11/14/18 14:12> <Gigi Gaona - Last Filed: 11/14/18 15:11> Allergies/Adverse Reactions: Allergies bleach Allergy (Severe, Uncoded 11/14/18 01:56) WHEEZING coughing, runny nose hot chillies Adverse Reaction (Uncoded 11/14/18 01:56) WHEEZING Review of Systems - Review of Systems Constitutional: Normal. absent: Fevers, Other (chills) Eyes: Normal. absent: Vision Changes ENT: Normal. absent: Sore Throat, Sinus Congestion Respiratory: Normal. absent: SOB, Cough Cardiovascular: Normal. absent: Chest Pain, Palpitations Gastrointestinal: Normal. absent: Abdominal Pain, Nausea, Vomiting Genitourinary Female: Normal. absent: Dysuria, Frequency, Urine Output Changes Musculoskeletal: Normal. absent: Back Pain, Neck Pain Skin: Normal. absent: Rash Neurological: Normal. absent: Headache, Dizziness Psychiatric: Other (auditory hallucinations; no homicidal ideation, no visual hallucinations). absent: Suicidal Ideation <Tiera Christianson - Last Filed: 11/14/18 14:12> Physical Exam Vital Signs Reviewed: Yes Vital Signs Temp Pulse Resp BP Pulse Ox 11/13/18 18:44 98.8 F 72 18 134/92 H 96 Temperature: Afebrile Blood Pressure: Hypertensive Pulse: Regular Respiratory Rate: Normal Appearance: Positive for: Well-Appearing Mental Status: Positive for: Alert and Oriented X 3 - Systems Exam Head: Present: Atraumatic, Normocephalic Pupils: Present: PERRL Extroacular Muscles: Present: EOMI Conjunctiva: Present: Normal Mouth: Present: Moist Mucous Membranes Neck: Present: Normal Range of Motion Respiratory/Chest: Present: Clear to Auscultation. No: Respiratory Distress, Accessory Muscle Use Cardiovascular: Present: Regular Rate and Rhythm, Normal S1, S2, Peripheal Pulse s Present Abdomen: Present: Normal Bowel Sounds. No: Tenderness, Distention, Peritoneal Signs, Rebound, Guarding Upper Extremity: Present: Normal Inspection, Normal ROM, NORMAL PULSES, Neurovascularly Intact, Capillary Refill < 2s. No: Cyanosis, Edema, Temperature Abnormalties Lower Extremity: Present: Normal Inspection, NORMAL PULSES, Normal ROM, Neurovascularly Intact, Capillary Refill < 2 s. No: Edema, Temperature A bnormalties Neurological: Present: GCS=15, CN II-XII Intact, Speech Normal, Motor Func Grossly Intact, Normal Sensory Function, Gait Normal Skin: Present: Warm, Dry, Normal Color. No: Rashes Psychiatric: Present: Alert, Oriented x 3. No: Normal Affect (bizarre affect), Suicidal Ideation, Homicidal Ideation <Tiera Christianson - Last Filed: 11/14/18 14:12> Vital Signs Temp Pulse Resp BP Pulse Ox 11/13/18 23:50 80 19 99 11/13/18 23:48 98.0 F 80 18 131/82 99 11/13/18 18:44 98.8 F 72 18 134/92 H 96 <Gigi Gaona - Last Filed: 11/14/18 15:11> Medical Decision Making ED Course and Treatment: 11/13/18 19:57 Plan: * Labs * UA * EKG * CXR * PES evaluation Notes: 21:30 PES advised me that the patient is to be admitted to the psychiatric floor under Dr. Holbrook with diagnosis of schizoaffective disorder. Pending Chest X-ray and urine results. 23:30 Bloodwork, urine, EKG, and CXR reviewed, no acute abnormalities. Patient is medically cleared for psychiatric admission. - Lab Interpretations Lab Results: 11/13/18 20:33 11/13/18 20:33 Lab Results 11/13/18 22:55: Urine Opiates Screen Negative, Urine Methadone Screen Negative, Ur Barbiturates Screen Negative, Ur Phencyclidine Scrn Negative, Ur Amphetamines Screen Negative, U Benzodiazepines Scrn Negative, U Oth Cocaine Metabols Negativ e, U Cannabinoids Screen Negative 11/13/18 22:55: Urine Color Yellow, Urine Appearance Clear, Urine pH 6.5, Ur Specific [place] 1.025, Urine Protein Trace H, Urine Glucose (UA) Negative, Urine Ketones Negative, Urine Blood Negative, Urine Nitrate Negative, Urine Bilirubin Negative, Urine Urobilinogen 1.0 H, Ur Leukocyte Esterase Negative, Urine RBC 0 - 2, Urine WBC 2 - 5, Ur Epithelial Cells 4 - 5, Urine Bacteria Mod 11/13/18 20:33: Alcohol, Quantitative < 10 11/13/18 20:33: Salicylates < 1 L, Acetaminophen < 10.0 L 11/13/18 20:33: Sodium 137, Potassium 3.6, Chloride 99, Carbon Dioxide 29, Anion Gap 13, BUN 17, Creatinine 0.6 L, Est GFR ( Amer) > 60, Est GFR (Non-Af Amer) > 60, Random Glucose 85, Calcium 9.1, Total Bilirubin 0.5, AST 31, ALT 17, Alkaline Phosphatase 71, Total Protein 7.2, Albumin 4.1, Globulin 3.1, Albumin/Globulin Ratio 1.3 11/13/18 20:33: WBC 7.4, RBC 4.42, Hgb 13.2, Hct 39.2, MCV 88.7, MCH 29.9, MCHC 33.7, RDW 12.2, Plt Count 280, MPV 9.5, Neut % (Auto) 48.7 L, Lymph % (Auto) 43.5 H, [place] % (Auto) 5.7, Eos % (Auto) 2.0, Baso % (Auto) 0.1, Lymph # (Auto) 3.2, [place] # (Auto) 0.4, Eos # (Auto) 0.2, Baso # (Auto) 0.01, Absolute Neuts (auto) 3.60 I have reviewed the lab results: Yes - RAD Interpretation Radiology Orders: 11/13/18 18:48 CHEST PORTABLE [RAD] Stat - EKG Interpretation EKG Interpretation (Text): Rate 68; NSR; Normal intervals; No STEMI, nonspecific ST/T wave changes Interpreted by ED Physician: Yes Type: 12 lead EKG <Tiera Christianson - Last Filed: 11/14/18 14:12> - Lab Interpretations Lab Results: Total Bilirubin 0.5 mg/dL (0.2-1.3) 11/13/18 20:33 AST 31 U/L (14-36) 11/13/18 20:33 ALT 17 U/L (7-56) 11/13/18 20:33 Alkaline Phosphatase 71 U/L (38-126) 11/13/18 20:33 Total Protein 7.2 g/dL (5.8-8.3) 11/13/18 20:33 Albumin 4.1 g/dL (3.0-4.8) 11/13/18 20:33 Globulin 3.1 gm/dL 11/13/18 20:33 Albumin/Globulin Ratio 1.3 (1.1-1.8) 11/13/18 20:33 Urine Color Yellow (YELLOW) 11/13/18 22:55 Urine Appearance Clear (CLEAR) 11/13/18 22:55 Urine pH 6.5 (4.7-8.0) 11/13/18 22:55 Ur Specific [place] 1.025 (1.005-1.035) 11/13/18 22:55 Urine Protein Trace mg/dL (<30 mg/dL) H 11/13/18 22:55 Urine Glucose (UA) Negative mg/dL (NEGATIVE) 11/13/18 22:55 Urine Ketones Negative mg/dL (NEGATIVE) 11/13/18 22:55 Urine Blood Negative (NEGATIVE) 11/13/18 22:55 Urine Nitrate Negative (NEGATIVE) 11/13/18 22:55 Urine Bilirubin Negative (NEGATIVE) 11/13/18 22:55 Urine Urobilinogen 1.0 E.U./dL (<1 E.U./dL) H 11/13/18 22:55 Ur Leukocyte Esterase Negative Dani/uL (NEGATIVE) 11/13/18 22:55 Urine RBC 0 - 2 /hpf (0-2) 11/13/18 22:55 Urine WBC 2 - 5 /hpf (0-6) 11/13/18 22:55 Ur Epithelial Cells 4 - 5 /hpf (0-5) 11/13/18 22:55 Urine Bacteria Mod /hpf (NONE) 11/13/18 22:55 - RAD Interpretation Radiology Orders: 11/13/18 18:48 CHEST PORTABLE [RAD] Stat - Medication Orders Current Medication Orders: Acetaminophen (Tylenol 325mg Tab) 650 mg PO Q6H PRN PRN Reason: Fever >100.4 F Al Hydrox/Mg Hydrox/Simethicone (Maalox Plus 30 Ml) 30 ml PO DAILY PRN PRN Reason: Indigestion / Heartburn Lorazepam (Ativan) 0.5 mg PO BID PRN; Protocol PRN Reason: Anxiety Magnesium Hydroxide (Milk Of Magnesia) 30 ml PO DAILY PRN PRN Reason: Constipation Paroxetine HCl (Paxil) 20 mg PO HS CHLOE Quetiapine Fumarate (Seroquel) 100 mg PO AMHS CHLOE; Protocol Zaleplon (Sonata) 10 mg PO HS PRN PRN Reason: Insomnia Discontinued Medications Clonazepam (Klonopin) 0.5 mg PO Q8H PRN; Protocol PRN Reason: Anxiety Last Admin: 11/14/18 01:48 Dose: 0.5 mg Behavioural Document 11/14/18 01:48 MICHELLE (Rec: 11/14/18 01:48 [id number] Maintenance Maintenance Dose No Nonmedicinal Nonmedicinal Interventions Redirect Therapeutic Communication Behavior Behavior for Medication: Anxiety Re-Assess: Reassess Psych Meds Document 11/14/18 02:48 MICHELLE (Rec: 11/14/18 06:45 MICHELLE [id number]) Reassess Psych Med Effective Quetiapine Fumarate (Seroquel) 100 mg PO HS CHLOE; Protocol Last Admin: 11/14/18 02:03 Dose: 100 mg Behavioural Document 11/14/18 02:03 MICHELLE (Rec: 11/14/18 02:03 MICHELLE [id number]) Maintenance Maintenance Dose Yes Nonmedicinal Nonmedicinal Interventions Redirect Therapeutic Communication Re-Assess: Reassess Psych Meds Document 11/14/18 03:03 MICHELLE (Rec: 11/14/18 06:45 MICHELLE [id number]) Reassess Psych Med Effective <Gigi Gaona - Last Filed: 11/14/18 15:11> - Scribe Statement The provider has reviewed the documentation as recorded by the Kennedi Carter All medical record entries made by the Kennedi were at my direction and personally dictated by me. I have reviewed the chart and agree that the record accurately reflects my personal performance of the history, physical exam, medical decision making, and the department course for this patient. I have also personally directed, reviewed, and agree with the discharge instructions and disposition. <Tiera Christianson - Last Filed: 11/14/18 14:12> - PA / [employer]ING [employer] ATTENDANT AND CASHIER / Resident Statement MD/DO has reviewed & agrees with the documentation as recorded. <Gigi Gaona - Last Filed: 11/14/18 15:11> Disposition/Present on Arrival - Present on Arrival Any Indicators Present on Arrival: No History of DVT/PE: No History of Uncontrolled Diabetes: No Urinary Catheter: No History of Decub. Ulcer: No History Surgical Site Infection Following: None - Disposition Have Diagnosis and Disposition been Completed?: Yes Disposition Time: 21:45 Patient Plan: Admission <Tiera Christianson - Last Filed: 11/14/18 14:12> <Gigi Gaona - Last Filed: 11/14/18 15:11> - Disposition Diagnosis: Schizoaffective disorder Disposition: HOSPITALIZED Patient Problems: Current Active Problems Problem Status Onset Schizoaffective disorder Chronic Condition: STABLE
[2018-11-13 20:41] LABS: BASO # 0.01 K/mm3 (0.0-2.0); BASO % 0.1 % (0.0-3.0); EOS # 0.2 (0.0-0.7); HEMOGLOBIN 13.2 g/dL (12.0-16.0); LYMPH # 3.2 (1.2-3.4); LYMPH % 43.5 % (22.0-35.0); MEAN CELL VOLUME 88.7 fl (80.0-105.0); MEAN CORPUSCULAR HEMOGLOBIN 29.9 pg (25.0-35.0); MEAN CORPUSCULAR HGB CONC 33.7 g/dl (31.0-37.0); MEAN PLATELET VOLUME 9.5 fl (7.0-11.0); MONO # 0.4 (0.1-0.6); MONO % 5.7 % (1.0-6.0); RBC 4.42 10^6/uL (3.5-6.1); RED CELL DISTRIBUTION WIDTH 12.2 % (11.5-14.5); WHITE BLOOD COUNT 7.4 10^3/uL (4.5-11.0)
[2018-11-13 20:53] LABS: ALB/GLOB RATIO 1.3 (1.1-1.8); ALBUMIN 4.1 g/dL (3.0-4.8); BLOOD UREA NITROGEN 17 mg/dL (7-21); CALCIUM 9.1 mg/dL (8.4-10.5); GFR NON-AFRICAN AMERICAN > 60
[2018-11-13 20:54] LABS: ACETAMINOPHEN < 10.0 ug/ml (10.0-20.0); ALT/SGPT 17 U/L (7-56); AST/SGOT 31 U/L (14-36); SALICYLATE < 1 mg/dL (2.0-20.0)
[2018-11-13 23:02] LABS: PH,URINE 6.5 (4.7-8.0); URINE BILIRUBIN NEGATIVE (NEGATIVE); URINE BLOOD NEGATIVE (NEGATIVE); URINE GLUCOSE (UA) NEGATIVE (NEGATIVE); URINE LEUKOCYTE ESTERASE NEGATIVE Leu/uL (NEGATIVE); URINE PROTEIN TRACE mg/dL (<30 mg/dL)
[2018-11-13 23:10] LABS: URINE APPEARANCE CLEAR (CLEAR); URINE COLOR YELLOW (YELLOW)
[2018-11-13 23:13] LABS: URINE BACTERIA MOD /hpf; URINE RBC 0 - 2 /hpf (0-2)
[2018-11-13 23:33] LABS: BENZODIAZEPINES, UR NEGATIVE (NEGATIVE)
[2018-11-13 23:36] LABS: BARBITURATES, UR NEGATIVE (NEGATIVE); OPIATES, UR NEGATIVE (NEGATIVE); PHENCYCLIDINE, UR NEGATIVE (NEGATIVE)
[2018-11-13 23:49] VITALS: O2SAT 99
[2018-11-14] MEDS ORDERED: Alum-Mag Hydrox-Simethicone Susp (30 mL) PO PRN (01:25)
[2018-11-14] MEDS ORDERED: Magnesium Hydroxide Susp 30 ml UD PO PRN (01:25)
--- NOTE | 2018-11-14 06:20 | PCM.BM ---
<Radhika Hall - Last Filed: 11/14/18 06:16> Treatment Plan Problems - Problems identified on initial assessmt Suicidal Ideation Date Initiated: 11/14/18 Time Initiated: 06:17 Assessment reference: NA Status: Active Ineffective Coping Date Initiated: 11/14/18 Time Initiated: 06:18 Assessment reference: NA Status: Active Hopelessness/helplessness Date Initiated: 11/14/18 Time Initiated: 06:18 Assessment reference: NA Status: Active Social Isolation Date Initiated: 11/14/18 Time Initiated: 06:19 Assessment reference: NA Status: Active Self Esteem Disturbance Date Initiated: 11/14/18 Time Initiated: 06:20 Assessment reference: NA Status: Active Treatment assets and liabiliti Patient Assests: cooperative, educated, self-reliant, ADL independent, good support system, negotiates basic needs, cognitively intact Patient Liabilities: relationship conflicts - Milieu Protocol Maintain good personal hygiene: daily Encourage regular showers, daily Remind patient to perform daily oral care, daily Assist patient to perform ADL's Maintain personal safety: every other day Educate patient to report safety concerns to staff, every other day Monitor environment for contraband/sharps Medication safety: Monitor for expected outcome, potential side effects: every other day, Assess barriers to learning: every other day, Assess readiness for medication education: every other day <Alondra Britt - Last Filed: 11/14/18 09:41> - Diagnosis (1) Schizoaffective disorder Status: Chronic Interventions: 11/14/18 09:41 group, milieu and supportive tx * consultation for discharge plan and social issues * Titrate Seroquel to prior effective dose of 400/400. Patient has a history of noncompliance in the past contributing to her decompensations. Today will start seroquel at 100/100. * Ativan 0.5 mg po bid prn for anxiety * Paxil 20 mg po HS for depression and anxiety. Titrate to prior dose of 40 mg HS. <Adriana Zazueta - Last Filed: 11/19/18 14:01> Family Contact Family involvement: Family/SO is involved Family contact: Patient agrees to contact Family contact name: Magy Ho(sister) Family contacted how many times per week?: 2
[2018-11-14 08:29] LABS: GLUCOSE,FASTING 98 mg/dL (65-110); HDL CHOLESTEROL 51 mg/dL (29-60)
[2018-11-14 08:40] LABS: LDL CHOLESTEROL 144 mg/dL (0-129)
--- NOTE | 2018-11-14 09:21 | CARD ---
APPROVED REPORT Date of service: 11/13/2018 EKG Measurement Heart [id number] <Conclusion> Normal sinus rhythm Cannot rule out Anterior infarct, age undetermined Abnormal ECG
--- NOTE | 2018-11-14 11:19 | RAD ---
Date of service: 11/13/2018 HISTORY: pes COMPARISON: 07/31/2018. FINDINGS: LUNGS: The lungs are well inflated and clear. PLEURA: No pleural effusions or pneumothorax. CARDIOVASCULAR: The heart is normal in size. No aortic atherosclerotic calcifications present. OSSEOUS STRUCTURES: Within normal limits for the patient's age. VISUALIZED UPPER ABDOMEN: Normal. OTHER FINDINGS: None. IMPRESSION: No active pulmonary disease.
[2018-11-15 07:57] LABS: BASO # 0.02 K/mm3 (0.0-2.0); BASO % 0.3 % (0.0-3.0); EOS # 0.2 (0.0-0.7); EOS % 2.3 % (1.5-5.0); HEMOGLOBIN 13.4 g/dL (12.0-16.0); LYMPH # 2.3 (1.2-3.4); LYMPH % 30.9 % (22.0-35.0); MEAN CELL VOLUME 89.2 fl (80.0-105.0); MEAN CORPUSCULAR HEMOGLOBIN 29.6 pg (25.0-35.0); MEAN CORPUSCULAR HGB CONC 33.3 g/dl (31.0-37.0); MEAN PLATELET VOLUME 9.5 fl (7.0-11.0); MONO # 0.5 (0.1-0.6); MONO % 6.3 % (1.0-6.0); RBC 4.52 10^6/uL (3.5-6.1); RED CELL DISTRIBUTION WIDTH 12.2 % (11.5-14.5); WHITE BLOOD COUNT 7.4 10^3/uL (4.5-11.0)
[2018-11-15 08:08] LABS: ACETAMINOPHEN < 10.0 ug/ml (10.0-20.0); SALICYLATE < 1 mg/dL (2.0-20.0)
[2018-11-15 08:23] LABS: ALB/GLOB RATIO 1.3 (1.1-1.8); ALBUMIN 3.9 g/dL (3.0-4.8); ALT/SGPT 18 U/L (7-56); AST/SGOT 23 U/L (14-36); BLOOD UREA NITROGEN 19 mg/dL (7-21); GFR NON-AFRICAN AMERICAN > 60
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
[2018-11-15] MEDS: Divalproex 500 mg DR(BID formulation) PO SCH (21:03)
[2018-11-16] MEDS: Divalproex 500 mg DR(BID formulation) PO SCH (21:38)
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
[2018-11-17] MEDS: Levothyroxine 50 MCG TAB PO SCH (06:09)
[2018-11-17 08:01] LABS: HDL CHOLESTEROL 41 mg/dL (29-60)
[2018-11-17 08:15] LABS: LDL CHOLESTEROL 133 mg/dL (0-129)
[2018-11-17 08:20] LABS: FREE T4 0.86 ng/dL (0.78-2.19)
[2018-11-17] MEDS: Divalproex 500 mg DR(BID formulation) PO SCH ×3 (09:32→21:02)
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
--- NOTE | 2018-11-17 22:24 | PCM.PYCHPN ---
Psychiatric Progress Note - Psychiatric Progress Note Patient seen today, length of contact: 25 min Patient Chief Complaint: Patient complaining of some depression, anxiety, what appears to be thought insertion. Is complaining that the [employer] platform, that she listens to zoroastrianism shows, is putting thoughts into her head. Also intimates that her mother is putting thoughts into her head. These appear to be thoughts of the location. In any event that underscores the patient's zoroastrianism preoccupation. Patient also expresses an awareness that her thinking is disorganized and remains distraught over her housing situation and having lost her home and not knowing where to go with the rest of her life. Feels that her mother monitors her Patient secretly indicates that she has or will initiate a new lawsuit against the [employer] company was responsible (according to the patient) for the loss of her home. In any event the patient remains perseverative and has not reached closure regarding the loss of her home which unfortunately was predictable and for which the patient was doing the question over an extended period of time prior to this loss. Problems Identified/Issues Discussed: As above The patient remains religiously preoccupied, has intrusive thoughts, thoughts of the location, may be having auditory hallucinations, is aware that she is "losing my mind" Medical Problems: Has history of diabetes mellitus. Review of systems indicates patient had tested positive for tuberculosis in the past Patient is obese. Patient has had some wheezing. Diagnostic Results: Laboratory Results - last 72 hr 11/13/18 11/13/18 11/14/18 22:55 22:55 07:00 WBC RBC Hgb Hct MCV MCH MCHC RDW Plt Count MPV Neut % (Auto) Lymph % (Auto) Gilliam % (Auto) Eos % (Auto) Baso % (Auto) Lymph # (Auto) Gilliam # (Auto) Eos # (Auto) Baso # (Auto) Absolute Neuts (auto) Sodium Potassium Chloride Carbon Dioxide Anion Gap BUN Creatinine Est GFR ( Amer) Est GFR (Non-Af Amer) POC Glucose (mg/dL) Random Glucose Fasting Glucose 98 Hemoglobin A1c Calcium Total Bilirubin AST ALT Alkaline Phosphatase Total Protein Albumin Globulin Albumin/Globulin Ratio Triglycerides 125 Cholesterol 229 H LDL Cholesterol Direct 144 H HDL Cholesterol 51 TSH 3rd Generation Urine Color Yellow Urine Appearance Clear Urine pH 6.5 Ur Specific [place] 1.025 Urine Protein Trace H Urine Glucose (UA) Negative Urine Ketones Negative Urine Blood Negative Urine Nitrate Negative Urine Bilirubin Negative Urine Urobilinogen 1.0 H Ur Leukocyte Esterase Negative Urine RBC 0 - 2 Urine WBC 2 - 5 Ur Epithelial Cells 4 - 5 Urine Bacteria Mod Salicylates Urine Opiates Screen Negative Urine Methadone Screen Negative Acetaminophen Ur Barbiturates Screen Negative Ur Phencyclidine Scrn Negative Ur Amphetamines Screen Negative U Benzodiazepines Scrn Negative U Oth Cocaine Metabols Negative U Cannabinoids Screen Negative Alcohol, Quantitative RPR 11/14/18 11/14/18 11/14/18 07:00 07:00 07:54 WBC RBC Hgb Hct MCV MCH MCHC RDW Plt Count MPV Neut % (Auto) Lymph % (Auto) Gilliam % (Auto) Eos % (Auto) Baso % (Auto) Lymph # (Auto) Gilliam # (Auto) Eos # (Auto) Baso # (Auto) Absolute Neuts (auto) Sodium Potassium Chloride Carbon Dioxide Anion Gap BUN Creatinine Est GFR ( Amer) Est GFR (Non-Af Amer) POC Glucose (mg/dL) 119 H Random Glucose Fasting Glucose Hemoglobin A1c Calcium Total Bilirubin AST ALT Alkaline Phosphatase Total Protein Albumin Globulin Albumin/Globulin Ratio Triglycerides Cholesterol LDL Cholesterol Direct HDL Cholesterol TSH 3rd Generation 0.54 Urine Color Urine Appearance Urine pH Ur Specific [place] Urine Protein Urine Glucose (UA) Urine Ketones Urine Blood Urine Nitrate Urine Bilirubin Urine Urobilinogen Ur Leukocyte Esterase Urine RBC Urine WBC Ur Epithelial Cells Urine Bacteria Salicylates Urine Opiates Screen Urine Methadone Screen Acetaminophen Ur Barbiturates Screen Ur Phencyclidine Scrn Ur Amphetamines Screen U Benzodiazepines Scrn U Oth Cocaine Metabols U Cannabinoids Screen Alcohol, Quantitative RPR Nonreactive 11/14/18 11/14/18 11/15/18 11:18 16:41 07:30 WBC 7.4 RBC 4.52 Hgb 13.4 Hct 40.3 MCV 89.2 MCH 29.6 MCHC 33.3 RDW 12.2 Plt Count 274 MPV 9.5 Neut % (Auto) 60.2 Lymph % (Auto) 30.9 Gilliam % (Auto) 6.3 H Eos % (Auto) 2.3 Baso % (Auto) 0.3 Lymph # (Auto) 2.3 Gilliam # (Auto) 0.5 Eos # (Auto) 0.2 Baso # (Auto) 0.02 Absolute Neuts (auto) 4.43 Sodium Potassium Chloride Carbon Dioxide Anion Gap BUN Creatinine Est GFR ( Amer) Est GFR (Non-Af Amer) POC Glucose (mg/dL) 132 H 106 Random Glucose Fasting Glucose Hemoglobin A1c Calcium Total Bilirubin AST ALT Alkaline Phosphatase Total Protein Albumin Globulin Albumin/Globulin Ratio Triglycerides Cholesterol LDL Cholesterol Direct HDL Cholesterol TSH 3rd Generation Urine Color Urine Appearance Urine pH Ur Specific [place] Urine Protein Urine Glucose (UA) Urine Ketones Urine Blood Urine Nitrate Urine Bilirubin Urine Urobilinogen Ur Leukocyte Esterase Urine RBC Urine WBC Ur Epithelial Cells Urine Bacteria Salicylates Urine Opiates Screen Urine Methadone Screen Acetaminophen Ur Barbiturates Screen Ur Phencyclidine Scrn Ur Amphetamines Screen U Benzodiazepines Scrn U Oth Cocaine Metabols U Cannabinoids Screen Alcohol, Quantitative RPR 11/15/18 11/15/18 11/15/18 07:30 07:30 07:30 WBC RBC Hgb Hct MCV MCH MCHC RDW Plt Count MPV Neut % (Auto) Lymph % (Auto) Gilliam % (Auto) Eos % (Auto) Baso % (Auto) Lymph # (Auto) Gilliam # (Auto) Eos # (Auto) Baso # (Auto) Absolute Neuts (auto) Sodium 139 Potassium 4.2 Chloride 102 Carbon Dioxide 31 Anion Gap 11 BUN 19 Creatinine 0.7 Est GFR ( Amer) > 60 Est GFR (Non-Af Amer) > 60 POC Glucose (mg/dL) Random Glucose 96 Fasting Glucose Hemoglobin A1c Calcium 9.0 Total Bilirubin 0.4 AST 23 ALT 18 Alkaline Phosphatase 73 Total Protein 6.9 Albumin 3.9 Globulin 3.1 Albumin/Globulin Ratio 1.3 Triglycerides Cholesterol LDL Cholesterol Direct HDL Cholesterol TSH 3rd Generation Urine Color Urine Appearance Urine pH Ur Specific [place] Urine Protein Urine Glucose (UA) Urine Ketones Urine Blood Urine Nitrate Urine Bilirubin Urine Urobilinogen Ur Leukocyte Esterase Urine RBC Urine WBC Ur Epithelial Cells Urine Bacteria Salicylates < 1 L Urine Opiates Screen Urine Methadone Screen Acetaminophen < 10.0 L Ur Barbiturates Screen Ur Phencyclidine Scrn Ur Amphetamines Screen U Benzodiazepines Scrn U Oth Cocaine Metabols U Cannabinoids Screen Alcohol, Quantitative < 10 RPR 11/15/18 11/15/18 11/15/18 07:30 07:38 11:26 WBC RBC Hgb Hct MCV MCH MCHC RDW Plt Count MPV Neut % (Auto) Lymph % (Auto) Gilliam % (Auto) Eos % (Auto) Baso % (Auto) Lymph # (Auto) Gilliam # (Auto) Eos # (Auto) Baso # (Auto) Absolute Neuts (auto) Sodium Potassium Chloride Carbon Dioxide Anion Gap BUN Creatinine Est GFR ( Amer) Est GFR (Non-Af Amer) POC Glucose (mg/dL) 97 79 Random Glucose Fasting Glucose Hemoglobin A1c 5.3 Calcium Total Bilirubin AST ALT Alkaline Phosphatase Total Protein Albumin Globulin Albumin/Globulin Ratio Triglycerides Cholesterol LDL Cholesterol Direct HDL Cholesterol TSH 3rd Generation Urine Color Urine Appearance Urine pH Ur Specific [place] Urine Protein Urine Glucose (UA) Urine Ketones Urine Blood Urine Nitrate Urine Bilirubin Urine Urobilinogen Ur Leukocyte Esterase Urine RBC Urine WBC Ur Epithelial Cells Urine Bacteria Salicylates Urine Opiates Screen Urine Methadone Screen Acetaminophen Ur Barbiturates Screen Ur Phencyclidine Scrn Ur Amphetamines Screen U Benzodiazepines Scrn U Oth Cocaine Metabols U Cannabinoids Screen Alcohol, Quantitative RPR 11/15/18 11/15/18 11/16/18 16:07 21:29 07:17 WBC RBC Hgb Hct MCV MCH MCHC RDW Plt Count MPV Neut % (Auto) Lymph % (Auto) Gilliam % (Auto) Eos % (Auto) Baso % (Auto) Lymph # (Auto) Gilliam # (Auto) Eos # (Auto) Baso # (Auto) Absolute Neuts (auto) Sodium Potassium Chloride Carbon Dioxide Anion Gap BUN Creatinine Est GFR ( Amer) Est GFR (Non-Af Amer) POC Glucose (mg/dL) 94 92 90 Random Glucose Fasting Glucose Hemoglobin A1c Calcium Total Bilirubin AST ALT Alkaline Phosphatase Total Protein Albumin Globulin Albumin/Globulin Ratio Triglycerides Cholesterol LDL Cholesterol Direct HDL Cholesterol TSH 3rd Generation Urine Color Urine Appearance Urine pH Ur Specific [place] Urine Protein Urine Glucose (UA) Urine Ketones Urine Blood Urine Nitrate Urine Bilirubin Urine Urobilinogen Ur Leukocyte Esterase Urine RBC Urine WBC Ur Epithelial Cells Urine Bacteria Salicylates Urine Opiates Screen Urine Methadone Screen Acetaminophen Ur Barbiturates Screen Ur Phencyclidine Scrn Ur Amphetamines Screen U Benzodiazepines Scrn U Oth Cocaine Metabols U Cannabinoids Screen Alcohol, Quantitative RPR DSM 5 Symptoms Update: Remains angry, anxious, with vague suicidal thoughts and the possible auditory hallucinations. Her for what ever reason patient is focusing on the loss of her home and seems unable to accept this and is blaming others and not at all will looking at her own contributions to this perceived crisis, I. D., Her inability to pay a mortgage, respond to summons, etc. This despite her academic advising director "pleadings" to her when she had such representation. Such surgeons also came from her family and myself Medication Change: Yes (Will DC Seroquel and start on Abilify with the intent of switching patient ) Medical Record Reviewed: Yes Mental Status Examination - Cognitive Function Orientation: Person, Place, Situation, Time Memory: Intact Attention: WNL Concentration: Poor Association: WNL Fund of Knowledge: WNL Decription of patient's judgement and insights: Impaired by the nature of her thought distortion - Mood Mood: Depressed, Anxious, Homicidal Ideation (Expresses some vague homicidal thoughts at either her ex-landlord or freight broker agent's) - Affect Affect: Constricted - Speech Speech: Appropriate, Soft - Formal Thought Process Formal Thought Process: Hallucinations, Delusions, Loosening of associations Psychotic Thoughts and Behaviors: Having thought insertion. Is accusing the [employer] (a radio transmitter station) (that she listens to zoroastrianism radio shows) of having influenced or putting thoughts into her head The. - Suicidal Ideation Suicidal Ideation: No - Homicidal Ideation Homicidal Ideation: Yes Plan: No plan Goal/Treatment Plan - Goal/Treatment Plan Need for Continued Stay: Remain at risks for inpatient hospitalization, Severe depression anxiety, Severe functional impairment Progress Toward Problem(s) and Goals/Treatment Plan: Have discussed case with patient's sister. Much pathos. Patient living with mother who is overwhelmed. Patient speaks of going back to [place] sometimes. Sister discussed the potential benefits of long-acting injectable antipsychotic as patient's level of compliance is uncertain Discussed this issue with patient. Patient refuses Invega Sustenna. Given the option of Risperdal Consta (every 2 weeks) or a longer acting Prolixin Decanoate or Haldol to can await (both with the larger side effect profile) have instead opted to put patient on Abilify with a better side effect profile and switch to Abilify maintena if patient tolerates Abilify On November 17 we will continue to monitor patient for both response and ability to tolerate Abilify. If after several days she does appear to be responding favorably, we will then try to switch to long-acting injectable Abilify ([place] and PRABHAKAR and a
[2018-11-18] MEDS: Levothyroxine 50 MCG TAB PO SCH (06:18)
[2018-11-18] MEDS: Divalproex 500 mg DR(BID formulation) PO SCH ×3 (08:37→21:56)
--- NOTE | 2018-11-18 13:01 | PCM.PYCHPN ---
Psychiatric Progress Note - Psychiatric Progress Note Patient seen today, length of contact: 25 min Patient Chief Complaint: Patient complaining of some depression, anxiety, what appears to be thought insertion. Is complaining that the [employer] platform, that she listens to latter day shows, is putting thoughts into her head. Also intimates that her mother is putting thoughts into her head. These appear to be thoughts of the location. In any event that underscores the patient's latter day preoccupation. Patient also expresses an awareness that her thinking is disorganized and remains distraught over her housing situation and having lost her home and not knowing where to go with the rest of her life. Feels that her mother monitors her Patient secretly indicates that she has or will initiate a new lawsuit against the [employer] company was responsible (according to the patient) for the loss of her home. In any event the patient remains perseverative and has not reached closure regarding the loss of her home which unfortunately was predictable and for which the patient was doing the question over an extended period of time prior to this loss. Problems Identified/Issues Discussed: As above The patient remains religiously preoccupied, has intrusive thoughts, thoughts of the location, may be having auditory hallucinations, is aware that she is "losing my mind" Medical Problems: Has history of diabetes mellitus. Review of systems indicates patient had tested positive for tuberculosis in the past Patient is obese. Patient has had some wheezing. Diagnostic Results: Laboratory Results - last 72 hr 11/13/18 11/13/18 11/14/18 22:55 22:55 07:00 WBC RBC Hgb Hct MCV MCH MCHC RDW Plt Count MPV Neut % (Auto) Lymph % (Auto) [place] % (Auto) Eos % (Auto) Baso % (Auto) Lymph # (Auto) [place] # (Auto) Eos # (Auto) Baso # (Auto) Absolute Neuts (auto) Sodium Potassium Chloride Carbon Dioxide Anion Gap BUN Creatinine Est GFR ( Amer) Est GFR (Non-Af Amer) POC Glucose (mg/dL) Random Glucose Fasting Glucose 98 Hemoglobin A1c Calcium Total Bilirubin AST ALT Alkaline Phosphatase Total Protein Albumin Globulin Albumin/Globulin Ratio Triglycerides 125 Cholesterol 229 H LDL Cholesterol Direct 144 H HDL Cholesterol 51 TSH 3rd Generation Urine Color Yellow Urine Appearance Clear Urine pH 6.5 Ur Specific Chloride 1.025 Urine Protein Trace H Urine Glucose (UA) Negative Urine Ketones Negative Urine Blood Negative Urine Nitrate Negative Urine Bilirubin Negative Urine Urobilinogen 1.0 H Ur Leukocyte Esterase Negative Urine RBC 0 - 2 Urine WBC 2 - 5 Ur Epithelial Cells 4 - 5 Urine Bacteria Mod Salicylates Urine Opiates Screen Negative Urine Methadone Screen Negative Acetaminophen Ur Barbiturates Screen Negative Ur Phencyclidine Scrn Negative Ur Amphetamines Screen Negative U Benzodiazepines Scrn Negative U Oth Cocaine Metabols Negative U Cannabinoids Screen Negative Alcohol, Quantitative RPR 11/14/18 11/14/18 11/14/18 07:00 07:00 07:54 WBC RBC Hgb Hct MCV MCH MCHC RDW Plt Count MPV Neut % (Auto) Lymph % (Auto) [place] % (Auto) Eos % (Auto) Baso % (Auto) Lymph # (Auto) [place] # (Auto) Eos # (Auto) Baso # (Auto) Absolute Neuts (auto) Sodium Potassium Chloride Carbon Dioxide Anion Gap BUN Creatinine Est GFR ( Amer) Est GFR (Non-Af Amer) POC Glucose (mg/dL) 119 H Random Glucose Fasting Glucose Hemoglobin A1c Calcium Total Bilirubin AST ALT Alkaline Phosphatase Total Protein Albumin Globulin Albumin/Globulin Ratio Triglycerides Cholesterol LDL Cholesterol Direct HDL Cholesterol TSH 3rd Generation 0.54 Urine Color Urine Appearance Urine pH Ur Specific Chloride Urine Protein Urine Glucose (UA) Urine Ketones Urine Blood Urine Nitrate Urine Bilirubin Urine Urobilinogen Ur Leukocyte Esterase Urine RBC Urine WBC Ur Epithelial Cells Urine Bacteria Salicylates Urine Opiates Screen Urine Methadone Screen Acetaminophen Ur Barbiturates Screen Ur Phencyclidine Scrn Ur Amphetamines Screen U Benzodiazepines Scrn U Oth Cocaine Metabols U Cannabinoids Screen Alcohol, Quantitative RPR Nonreactive 11/14/18 11/14/18 11/15/18 11:18 16:41 07:30 WBC 7.4 RBC 4.52 Hgb 13.4 Hct 40.3 MCV 89.2 MCH 29.6 MCHC 33.3 RDW 12.2 Plt Count 274 MPV 9.5 Neut % (Auto) 60.2 Lymph % (Auto) 30.9 [place] % (Auto) 6.3 H Eos % (Auto) 2.3 Baso % (Auto) 0.3 Lymph # (Auto) 2.3 [place] # (Auto) 0.5 Eos # (Auto) 0.2 Baso # (Auto) 0.02 Absolute Neuts (auto) 4.43 Sodium Potassium Chloride Carbon Dioxide Anion Gap BUN Creatinine Est GFR ( Amer) Est GFR (Non-Af Amer) POC Glucose (mg/dL) 132 H 106 Random Glucose Fasting Glucose Hemoglobin A1c Calcium Total Bilirubin AST ALT Alkaline Phosphatase Total Protein Albumin Globulin Albumin/Globulin Ratio Triglycerides Cholesterol LDL Cholesterol Direct HDL Cholesterol TSH 3rd Generation Urine Color Urine Appearance Urine pH Ur Specific [place] Urine Protein Urine Glucose (UA) Urine Ketones Urine Blood Urine Nitrate Urine Bilirubin Urine Urobilinogen Ur Leukocyte Esterase Urine RBC Urine WBC Ur Epithelial Cells Urine Bacteria Salicylates Urine Opiates Screen Urine Methadone Screen Acetaminophen Ur Barbiturates Screen Ur Phencyclidine Scrn Ur Amphetamines Screen U Benzodiazepines Scrn U Oth Cocaine Metabols U Cannabinoids Screen Alcohol, Quantitative RPR 11/15/18 11/15/18 11/15/18 07:30 07:30 07:30 WBC RBC Hgb Hct MCV MCH MCHC RDW Plt Count MPV Neut % (Auto) Lymph % (Auto) [place] % (Auto) Eos % (Auto) Baso % (Auto) Lymph # (Auto) [place] # (Auto) Eos # (Auto) Baso # (Auto) Absolute Neuts (auto) Sodium 139 Potassium 4.2 Chloride 102 Carbon Dioxide 31 Anion Gap 11 BUN 19 Creatinine 0.7 Est GFR ( Amer) > 60 Est GFR (Non-Af Amer) > 60 POC Glucose (mg/dL) Random Glucose 96 Fasting Glucose Hemoglobin A1c Calcium 9.0 Total Bilirubin 0.4 AST 23 ALT 18 Alkaline Phosphatase 73 Total Protein 6.9 Albumin 3.9 Globulin 3.1 Albumin/Globulin Ratio 1.3 Triglycerides Cholesterol LDL Cholesterol Direct HDL Cholesterol TSH 3rd Generation Urine Color Urine Appearance Urine pH Ur Specific Chlor[place] Urine Protein Urine Glucose (UA) Urine Ketones Urine Blood Urine Nitrate Urine Bilirubin Urine Urobilinogen Ur Leukocyte Esterase Urine RBC Urine WBC Ur Epithelial Cells Urine Bacteria Salicylates < 1 L Urine Opiates Screen Urine Methadone Screen Acetaminophen < 10.0 L Ur Barbiturates Screen Ur Phencyclidine Scrn Ur Amphetamines Screen U Benzodiazepines Scrn U Oth Cocaine Metabols U Cannabinoids Screen Alcohol, Quantitative < 10 RPR 11/15/18 11/15/18 11/15/18 07:30 07:38 11:26 WBC RBC Hgb Hct MCV MCH MCHC RDW Plt Count MPV Neut % (Auto) Lymph % (Auto) [place] % (Auto) Eos % (Auto) Baso % (Auto) Lymph # (Auto) [place] # (Auto) Eos # (Auto) Baso # (Auto) Absolute Neuts (auto) Sodium Potassium Chloride Carbon Dioxide Anion Gap BUN Creatinine Est GFR ( Amer) Est GFR (Non-Af Amer) POC Glucose (mg/dL) 97 79 Random Glucose Fasting Glucose Hemoglobin A1c 5.3 Calcium Total Bilirubin AST ALT Alkaline Phosphatase Total Protein Albumin Globulin Albumin/Globulin Ratio Triglycerides Cholesterol LDL Cholesterol Direct HDL Cholesterol TSH 3rd Generation Urine Color Urine Appearance Urine pH Ur Specific Chlor[place] Urine Protein Urine Glucose (UA) Urine Ketones Urine Blood Urine Nitrate Urine Bilirubin Urine Urobilinogen Ur Leukocyte Esterase Urine RBC Urine WBC Ur Epithelial Cells Urine Bacteria Salicylates Urine Opiates Screen Urine Methadone Screen Acetaminophen Ur Barbiturates Screen Ur Phencyclidine Scrn Ur Amphetamines Screen U Benzodiazepines Scrn U Oth Cocaine Metabols U Cannabinoids Screen Alcohol, Quantitative RPR 11/15/18 11/15/18 11/16/18 16:07 21:29 07:17 WBC RBC Hgb Hct MCV MCH MCHC RDW Plt Count MPV Neut % (Auto) Lymph % (Auto) [place] % (Auto) Eos % (Auto) Baso % (Auto) Lymph # (Auto) [place] # (Auto) Eos # (Auto) Baso # (Auto) Absolute Neuts (auto) Sodium Potassium Chloride Carbon Dioxide Anion Gap BUN Creatinine Est GFR ( Amer) Est GFR (Non-Af Amer) POC Glucose (mg/dL) 94 92 90 Random Glucose Fasting Glucose Hemoglobin A1c Calcium Total Bilirubin AST ALT Alkaline Phosphatase Total Protein Albumin Globulin Albumin/Globulin Ratio Triglycerides Cholesterol LDL Cholesterol Direct HDL Cholesterol TSH 3rd Generation Urine Color Urine Appearance Urine pH Ur Specific Chloride Urine Protein Urine Glucose (UA) Urine Ketones Urine Blood Urine Nitrate Urine Bilirubin Urine Urobilinogen Ur Leukocyte Esterase Urine RBC Urine WBC Ur Epithelial Cells Urine Bacteria Salicylates Urine Opiates Screen Urine Methadone Screen Acetaminophen Ur Barbiturates Screen Ur Phencyclidine Scrn Ur Amphetamines Screen U Benzodiazepines Scrn U Oth Cocaine Metabols U Cannabinoids Screen Alcohol, Quantitative RPR DSM 5 Symptoms Update: Affect appears brighter than yesterday. Less anxious, more focused. Still having auditory hallucinations. Still obsesses over at that and guilt over a prior termination of . Seems less angry in general. Even accepting the presence of a nursing techn that she has rejected and avoided in the past. Medication Change: No (Will DC Seroquel and start on Abilify with the intent of switching patient ) Medical Record Reviewed: Yes Mental Status Examination - Cognitive Function Orientation: Person, Place, Situation, Time Memory: Intact Attention: WNL Concentration: Poor Association: WNL Fund of Knowledge: WNL Decription of patient's judgement and insights: Impaired by the nature of her thought distortion - Mood Mood: Depressed, Anxious, Homicidal Ideation (Expresses some vague homicidal thoughts at either her ex-landlord or mortgage sales manager's) - Affect Affect: Constricted - Speech Speech: Appropriate, Soft - Formal Thought Process Formal Thought Process: Hallucinations, Delusions, Loosening of associations Psychotic Thoughts and Behaviors: Having thought insertion. Is accusing the [employer] (a radio transmitter station) (that she listens to latter day radio shows) of having influenced or putting thoughts into her head The. On November 18 seems more stable, still having some auditory hallucinations of the irrigation, not of command. Seems more focused and interactive and energetic - Suicidal Ideation Suicidal Ideation: Yes Plan: Known plan. Previously did have thoughts of overdosing but would not do this to her family. - Homicidal Ideation Homicidal Ideation: No Goal/Treatment Plan - Goal/Treatment Plan Need for Continued Stay: Remain at risks for inpatient hospitalization (Plan remains to improve mental status with increasing doses of Abilify before offering injectable form), Severe depression anxiety, Severe functional impairment Progress Toward Problem(s) and Goals/Treatment Plan: Have discussed case with patient's sister. Much pathos. Patient living with mother who is overwhelmed. Patient speaks of going back to [place] sometimes. Sister discussed the potential benefits of long-acting injectable antipsychotic as patient's level of compliance is uncertain Discussed this issue with patient. Patient refuses Invega Sustenna. Given the option of Risperdal Consta (every 2 weeks) or a longer acting Prolixin Decanoate or Haldol to can await (both with the larger side effect profile) have instead opted to put patient on Abilify with a better side effect profile and switch to Abilify maintena if patient tolerates Abilify On November 17 we will continue to monitor patient for both response and ability to tolerate Abilify. If after several days she does appear to be responding favorably, we will then try to switch to long-acting injectable Abilify ([place] and PRABHAKAR and a
--- NOTE | 2018-11-18 16:28 | PN ---
DATE: 11/18/2018 SUBJECTIVE: The patient is 48 years old, seen and examined. Sitting on the floor doing stretching exercises. She states she feels a lot better, not trying as much, but still kind of upset and depressed otherwise offer no complaints. PHYSICAL EXAMINATION: VITAL SIGNS: She is afebrile. Pulse , respiration 20 and blood pressure 124/89. LUNGS: Bilateral fair airflow. No rhonchi or crackle. HEART: S1 and S2, audible. ABDOMEN: Soft and nontender. No rebound. No guarding. 1. NEUROLOGIC: The patient is awake, alert and able to communicate. ASSESSMENT: 1. History of hypothyroidism. 2. History of gastritis. 3. Bipolar disorder. 4. History of schizophrenia. 5. Suicidal thoughts. PLAN: Currently, the patient is on multiple psych medication. We will continue on Cozaar. Her blood pressure seem to be stable. She is on levothyroxine, we will continue that. Thanks for consult. We will follow with you intermittently. John Craig MD
[2018-11-19] MEDS: Levothyroxine 50 MCG TAB PO SCH (06:44)
[2018-11-19] MEDS: Divalproex 500 mg DR(BID formulation) PO SCH ×3 (09:51→21:13)
--- NOTE | 2018-11-19 23:18 | PN ---
DATE: 11/19/2018 IDENTIFYING INFORMATION: The patient is a 47-year-old Arabic female with a schizoaffective disorder. Case reviewed with nursing. The patient is alert, oriented to three spheres, is reportedly religiously preoccupied (according to nursing), but not according to my present observation (she is presently involved in a scrabble game with two male patients). Nursing has observed some odd behavior of scratching and imagined objects earlier today, but these are not present. The patient seems less angry and in fact she seems pleased that the Abilify that she is on (and to which she is attributing a positive ) is these increasing your appetite and thus will allow her to lose weight. My sense is that the patient can continue with a relatively good mood (although the level of her psychotic ideation is not clear to me presently), then we will be able to switch her to Abilify Maintena injections, which is the goal of having started her on the Abilify in the first place. She had been seen by Medicine who is monitoring her hypothyroidism and history of gastritis. She is being maintained on Cozaar with a steady blood pressure and is also maintained on L-thyroxine. Psychiatrically, she seems to be managing reasonably well on Abilify 15 mg at bedtime and 10 mg a.m., Ativan 1 mg every 6 hours p.r.n. and 0.5 mg q.i.d., and Depakote 250 mg at bedtime and 500 mg b.i.d. Blood pressure 144/90, pulse 81, temperature 97.9, and respiratory rate 20. Blood glucose yesterday was 109. The patient's church preoccupation has been noted by staff, although at this present time and perhaps because she is distracted by her scrabbled game, she seems less so oriented, although she tells me that she still has an urge to hit the wall with her fist because of all the issues she is dealing with! Handy Holbrook MD/ PhD
[2018-11-20] MEDS: Levothyroxine 50 MCG TAB PO SCH (06:58)
[2018-11-20] MEDS: Divalproex 500 mg DR(BID formulation) PO SCH ×3 (08:55→21:16)
--- NOTE | 2018-11-20 16:23 | PCM.PYCHPN ---
Psychiatric Progress Note - Psychiatric Progress Note Patient seen today, length of contact: 25 min Patient Chief Complaint: Patient complaining of some depression, anxiety, what appears to be thought insertion. Is complaining that the [employer] platform, that she listens to yazidism shows, is putting thoughts into her head. Also intimates that her mother is putting thoughts into her head. These appear to be thoughts of the location. In any event that underscores the patient's yazidism preoccupation. Patient also expresses an awareness that her thinking is disorganized and remains distraught over her housing situation and having lost her home and not knowing where to go with the rest of her life. Feels that her mother monitors her Patient secretly indicates that she has or will initiate a new lawsuit against the [employer] company was responsible (according to the patient) for the loss of her home. In any event the patient remains perseverative and has not reached closure regarding the loss of her home which unfortunately was predictable and for which the patient was doing the question over an extended period of time prior to this loss. Problems Identified/Issues Discussed: As above The patient remains religiously preoccupied, has intrusive thoughts, thoughts of the location, may be having auditory hallucinations, is aware that she is "losing my mind" Medical Problems: Has history of diabetes mellitus. Review of systems indicates patient had tested positive for tuberculosis in the past Patient is obese. Patient has had some wheezing. Diagnostic Results: Laboratory Results - last 72 hr 11/13/18 11/13/18 11/14/18 22:55 22:55 07:00 WBC RBC Hgb Hct MCV MCH MCHC RDW Plt Count MPV Neut % (Auto) Lymph % (Auto) [place] % (Auto) Eos % (Auto) Baso % (Auto) Lymph # (Auto) [place] # (Auto) Eos # (Auto) Baso # (Auto) Absolute Neuts (auto) Sodium Potassium Chloride Carbon Dioxide Anion Gap BUN Creatinine Est GFR ( Amer) Est GFR (Non-Af Amer) POC Glucose (mg/dL) Random Glucose Fasting Glucose 98 Hemoglobin A1c Calcium Total Bilirubin AST ALT Alkaline Phosphatase Total Protein Albumin Globulin Albumin/Globulin Ratio Triglycerides 125 Cholesterol 229 H LDL Cholesterol Direct 144 H HDL Cholesterol 51 TSH 3rd Generation Urine Color Yellow Urine Appearance Clear Urine pH 6.5 Ur Specific Dawson 1.025 Urine Protein Trace H Urine Glucose (UA) Negative Urine Ketones Negative Urine Blood Negative Urine Nitrate Negative Urine Bilirubin Negative Urine Urobilinogen 1.0 H Ur Leukocyte Esterase Negative Urine RBC 0 - 2 Urine WBC 2 - 5 Ur Epithelial Cells 4 - 5 Urine Bacteria Mod Salicylates Urine Opiates Screen Negative Urine Methadone Screen Negative Acetaminophen Ur Barbiturates Screen Negative Ur Phencyclidine Scrn Negative Ur Amphetamines Screen Negative U Benzodiazepines Scrn Negative U Oth Cocaine Metabols Negative U Cannabinoids Screen Negative Alcohol, Quantitative RPR 11/14/18 11/14/18 11/14/18 07:00 07:00 07:54 WBC RBC Hgb Hct MCV MCH MCHC RDW Plt Count MPV Neut % (Auto) Lymph % (Auto) [place] % (Auto) Eos % (Auto) Baso % (Auto) Lymph # (Auto) [place] # (Auto) Eos # (Auto) Baso # (Auto) Absolute Neuts (auto) Sodium Potassium Chloride Carbon Dioxide Anion Gap BUN Creatinine Est GFR ( Amer) Est GFR (Non-Af Amer) POC Glucose (mg/dL) 119 H Random Glucose Fasting Glucose Hemoglobin A1c Calcium Total Bilirubin AST ALT Alkaline Phosphatase Total Protein Albumin Globulin Albumin/Globulin Ratio Triglycerides Cholesterol LDL Cholesterol Direct HDL Cholesterol TSH 3rd Generation 0.54 Urine Color Urine Appearance Urine pH Ur Specific Dawson Urine Protein Urine Glucose (UA) Urine Ketones Urine Blood Urine Nitrate Urine Bilirubin Urine Urobilinogen Ur Leukocyte Esterase Urine RBC Urine WBC Ur Epithelial Cells Urine Bacteria Salicylates Urine Opiates Screen Urine Methadone Screen Acetaminophen Ur Barbiturates Screen Ur Phencyclidine Scrn Ur Amphetamines Screen U Benzodiazepines Scrn U Oth Cocaine Metabols U Cannabinoids Screen Alcohol, Quantitative RPR Nonreactive 11/14/18 11/14/18 11/15/18 11:18 16:41 07:30 WBC 7.4 RBC 4.52 Hgb 13.4 Hct 40.3 MCV 89.2 MCH 29.6 MCHC 33.3 RDW 12.2 Plt Count 274 MPV 9.5 Neut % (Auto) 60.2 Lymph % (Auto) 30.9 [place] % (Auto) 6.3 H Eos % (Auto) 2.3 Baso % (Auto) 0.3 Lymph # (Auto) 2.3 [place] # (Auto) 0.5 Eos # (Auto) 0.2 Baso # (Auto) 0.02 Absolute Neuts (auto) 4.43 Sodium Potassium Chloride Carbon Dioxide Anion Gap BUN Creatinine Est GFR ( Amer) Est GFR (Non-Af Amer) POC Glucose (mg/dL) 132 H 106 Random Glucose Fasting Glucose Hemoglobin A1c Calcium Total Bilirubin AST ALT Alkaline Phosphatase Total Protein Albumin Globulin Albumin/Globulin Ratio Triglycerides Cholesterol LDL Cholesterol Direct HDL Cholesterol TSH 3rd Generation Urine Color Urine Appearance Urine pH Ur Specific Dawson Urine Protein Urine Glucose (UA) Urine Ketones Urine Blood Urine Nitrate Urine Bilirubin Urine Urobilinogen Ur Leukocyte Esterase Urine RBC Urine WBC Ur Epithelial Cells Urine Bacteria Salicylates Urine Opiates Screen Urine Methadone Screen Acetaminophen Ur Barbiturates Screen Ur Phencyclidine Scrn Ur Amphetamines Screen U Benzodiazepines Scrn U Oth Cocaine Metabols U Cannabinoids Screen Alcohol, Quantitative RPR 11/15/18 11/15/18 11/15/18 07:30 07:30 07:30 WBC RBC Hgb Hct MCV MCH MCHC RDW Plt Count MPV Neut % (Auto) Lymph % (Auto) [place] % (Auto) Eos % (Auto) Baso % (Auto) Lymph # (Auto) [place] # (Auto) Eos # (Auto) Baso # (Auto) Absolute Neuts (auto) Sodium 139 Potassium 4.2 Chloride 102 Carbon Dioxide 31 Anion Gap 11 BUN 19 Creatinine 0.7 Est GFR ( Amer) > 60 Est GFR (Non-Af Amer) > 60 POC Glucose (mg/dL) Random Glucose 96 Fasting Glucose Hemoglobin A1c Calcium 9.0 Total Bilirubin 0.4 AST 23 ALT 18 Alkaline Phosphatase 73 Total Protein 6.9 Albumin 3.9 Globulin 3.1 Albumin/Globulin Ratio 1.3 Triglycerides Cholesterol LDL Cholesterol Direct HDL Cholesterol TSH 3rd Generation Urine Color Urine Appearance Urine pH Ur Specific Dawson Urine Protein Urine Glucose (UA) Urine Ketones Urine Blood Urine Nitrate Urine Bilirubin Urine Urobilinogen Ur Leukocyte Esterase Urine RBC Urine WBC Ur Epithelial Cells Urine Bacteria Salicylates < 1 L Urine Opiates Screen Urine Methadone Screen Acetaminophen < 10.0 L Ur Barbiturates Screen Ur Phencyclidine Scrn Ur Amphetamines Screen U Benzodiazepines Scrn U Oth Cocaine Metabols U Cannabinoids Screen Alcohol, Quantitative < 10 RPR 11/15/18 11/15/18 11/15/18 07:30 07:38 11:26 WBC RBC Hgb Hct MCV MCH MCHC RDW Plt Count MPV Neut % (Auto) Lymph % (Auto) [place] % (Auto) Eos % (Auto) Baso % (Auto) Lymph # (Auto) [place] # (Auto) Eos # (Auto) Baso # (Auto) Absolute Neuts (auto) Sodium Potassium Chloride Carbon Dioxide Anion Gap BUN Creatinine Est GFR ( Amer) Est GFR (Non-Af Amer) POC Glucose (mg/dL) 97 79 Random Glucose Fasting Glucose Hemoglobin A1c 5.3 Calcium Total Bilirubin AST ALT Alkaline Phosphatase Total Protein Albumin Globulin Albumin/Globulin Ratio Triglycerides Cholesterol LDL Cholesterol Direct HDL Cholesterol TSH 3rd Generation Urine Color Urine Appearance Urine pH Ur Specific Dawson Urine Protein Urine Glucose (UA) Urine Ketones Urine Blood Urine Nitrate Urine Bilirubin Urine Urobilinogen Ur Leukocyte Esterase Urine RBC Urine WBC Ur Epithelial Cells Urine Bacteria Salicylates Urine Opiates Screen Urine Methadone Screen Acetaminophen Ur Barbiturates Screen Ur Phencyclidine Scrn Ur Amphetamines Screen U Benzodiazepines Scrn U Oth Cocaine Metabols U Cannabinoids Screen Alcohol, Quantitative RPR 11/15/18 11/15/18 11/16/18 16:07 21:29 07:17 WBC RBC Hgb Hct MCV MCH MCHC RDW Plt Count MPV Neut % (Auto) Lymph % (Auto) [place] % (Auto) Eos % (Auto) Baso % (Auto) Lymph # (Auto) [place] # (Auto) Eos # (Auto) Baso # (Auto) Absolute Neuts (auto) Sodium Potassium Chloride Carbon Dioxide Anion Gap BUN Creatinine Est GFR ( Amer) Est GFR (Non-Af Amer) POC Glucose (mg/dL) 94 92 90 Random Glucose Fasting Glucose Hemoglobin A1c Calcium Total Bilirubin AST ALT Alkaline Phosphatase Total Protein Albumin Globulin Albumin/Globulin Ratio Triglycerides Cholesterol LDL Cholesterol Direct HDL Cholesterol TSH 3rd Generation Urine Color Urine Appearance Urine pH Ur Specific Dawson Urine Protein Urine Glucose (UA) Urine Ketones Urine Blood Urine Nitrate Urine Bilirubin Urine Urobilinogen Ur Leukocyte Esterase Urine RBC Urine WBC Ur Epithelial Cells Urine Bacteria Salicylates Urine Opiates Screen Urine Methadone Screen Acetaminophen Ur Barbiturates Screen Ur Phencyclidine Scrn Ur Amphetamines Screen U Benzodiazepines Scrn U Oth Cocaine Metabols U Cannabinoids Screen Alcohol, Quantitative RPR DSM 5 Symptoms Update: Alert, oriented to 3 spheres. Somewhat enigmatic. Is socializing well at times. At times appears to be sexually preoccupied or inappropriate (had been rubbing another patient). Still is angry at times and a self punitive about her plight and still angry about orthodoxy really misdirection. Whether this reaches the level of delusional thinking is uncertain does not appear to be responding to internal stimuli. He. Does not appear to be having auditory or visual hallucinations. Medication Change: No (Will DC Seroquel and start on Abilify with the intent of switching patient ) Medical Record Reviewed: Yes Mental Status Examination - Cognitive Function Orientation: Person, Place, Situation, Time Memory: Intact Attention: WNL Concentration: WNL Association: WNL Fund of Knowledge: [facility] Decription of patient's judgement and insights: Impaired by the nature of her thought distortion On November 20 is somewhat inconsistent in her insight. Seems to be oblivious to her sexual preoccupation. Still at times blames others for her plight or poor decisions regarding her financial status and attempts at maintaining her home - Mood Mood: Depressed, Homicidal Ideation (Expresses some vague homicidal thoughts at either her ex-landlord or mortgage servicing specialist's) - Affect Affect: Constricted (Improving) - Speech Speech: Appropriate, Soft - Formal Thought Process Formal Thought Process: Hallucinations, Delusions, Loosening of associations Psychotic Thoughts and Behaviors: Having thought insertion. Is accusing the [place] (a radio transmitter station) (that she listens to yazidism radio shows) of having influenced or putting thoughts into her head The. On November 18 seems more stable, still having some auditory hallucinations of the irrigation, not of command. Seems more focused and interactive and energetic - Suicidal Ideation Suicidal Ideation: No - Homicidal Ideation Homicidal Ideation: No Goal/Treatment Plan - Goal/Treatment Plan Need for Continued Stay: Remain at risks for inpatient hospitalization (Plan remains to improve mental status with increasing doses of Abilify before offering injectable form), Severe depression anxiety, Severe functional impairment Progress Toward Problem(s) and Goals/Treatment Plan: Have discussed case with patient's sister. Much pathos. Patient living with mother who is overwhelmed. Patient speaks of going back to [place] sometimes. Sister discussed the potential benefits of long-acting injectable antipsychotic as patient's level of compliance is uncertain Discussed this issue with patient. Patient refuses Invega Sustenna. Given the option of Risperdal Consta (every 2 weeks) or a longer acting Prolixin Decanoate or Haldol to can await (both with the larger side effect profile) have instead opted to put patient on Abilify with a better side effect profile and switch to Abilify maintena if patient tolerates Abilify On November 17 we will continue to monitor patient for both response and ability to tolerate Abilify. If after several days she does appear to be responding favorably, we will then try to switch to long-acting injectable Abilify (MA and PRABHAKAR and a On November 20 patient showing slow progress. Will observe over the weekend. We will consider giving Abilify Maintena on Friday
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
[2018-11-21] MEDS: Levothyroxine 50 MCG TAB PO SCH (06:19)
--- NOTE | 2018-11-21 08:34 | PCM.PYCHPN ---
Psychiatric Progress Note - Psychiatric Progress Note Patient seen today, length of contact: 25 min Problems Identified/Issues Discussed: PROGRESS NOTE 11/21/18 I reviewed recent staff notes and met with patient in the dayroom. I am familiar with patient from her prior admission as well as admission interviews during this hospitalization last weekend. She is a little unkempt however remains well- oriented and organized. Affect appears more reactive and she is more communicative with me than last week. Mood is still reported as "depressed, I have been better". Patient denies experiencing any hallucinations recently. Last weekend she reported auditory hallucinations, voices that say "f--ked up" though she never appeared to be responding to internal stimuli. Overall, she remains coherent during our interview though focus is inconsistent and she is not well-related. Staff have noted patient to be more visible, socializing and participating in activities. There have been no behavioral issues over the weekend thus far. Diagnostic Results: Schizoaffective disorder by hx Medication Change: No ( ) Medical Record Reviewed: Yes Mental Status Examination - Cognitive Function Orientation: Person, Place, Situation - Mood Mood: Depressed ("i have been better"), Anxious - Affect Affect: Constricted (more reactive and communicative), Other (labile) - Speech Speech: Appropriate, Soft - Formal Thought Process Formal Thought Process: Hallucinations (denied today), Loosening of associations - Suicidal Ideation Suicidal Ideation: No - Homicidal Ideation Homicidal Ideation: No Goal/Treatment Plan - Goal/Treatment Plan Need for Continued Stay: Remain at risks for inpatient hospitalization (Plan remains to improve mental status with increasing doses of Abilify before offering injectable form), Severe depression anxiety, Severe functional impairment Progress Toward Problem(s) and Goals/Treatment Plan: * c/w current tx and plan * No new weekend lab results noted thus far * Considering Abilify Maintenna on Friday11/22/18 * Vitals reviewed and noted below: Selected Entries 11/19/18 11/19/18 11/19/18 07:22 09:52 15:57 Temperature 97.9 F Pulse Rate 67 67 81 Respiratory 20 Rate Blood Pressure 118/74 118/74 144/90 11/20/18 15:55 Temperature Pulse Rate 73 Respiratory Rate Blood Pressure 124/82 * Please refer to ER report dated 11/13/18 for physical exam and ROS findings. ADMISSION LABS Laboratory Tests 05/04/2411/13/18 11/13/18 20:33 20:33 20:33 WBC 7.4 RBC 4.42 Hgb 13.2 Hct 39.2 MCV 88.7 MCH 29.9 MCHC 33.7 RDW 12.2 Plt Count 280 MPV 9.5 Neut % (Auto) 48.7 L Lymph % (Auto) 43.5 H [place] % (Auto) 5.7 Eos % (Auto) 2.0 Baso % (Auto) 0.1 Lymph # (Auto) 3.2 [place] # (Auto) 0.4 Eos # (Auto) 0.2 Baso # (Auto) 0.01 Absolute Neuts (auto) 3.60 Sodium 137 Potassium 3.6 Chloride 99 Carbon Dioxide 29 Anion Gap 13 BUN 17 Creatinine 0.6 L Est GFR ( Amer) > 60 Est GFR (Non-Af Amer) > 60 POC Glucose (mg/dL) Random Glucose 85 Fasting Glucose Calcium 9.1 Total Bilirubin 0.5 AST 31 ALT 17 Alkaline Phosphatase 71 Total Protein 7.2 Albumin 4.1 Globulin 3.1 Albumin/Globulin Ratio 1.3 Triglycerides Cholesterol LDL Cholesterol Direct HDL Cholesterol TSH 3rd Generation Urine Color Urine Appearance Urine pH Ur Specific [place] Urine Protein Urine Glucose (UA) Urine Ketones Urine Blood Urine Nitrate Urine Bilirubin Urine Urobilinogen Ur Leukocyte Esterase Urine RBC Urine WBC Ur Epithelial Cells Urine Bacteria Salicylates < 1 L Urine Opiates Screen Urine Methadone Screen Acetaminophen < 10.0 L Ur Barbiturates Screen Ur Phencyclidine Scrn Ur Amphetamines Screen U Benzodiazepines Scrn U Oth Cocaine Metabols U Cannabinoids Screen Alcohol, Quantitative 11/13/18 11/13/18 11/13/18 20:33 22:55 22:55 WBC RBC Hgb Hct MCV MCH MCHC RDW Plt Count MPV Neut % (Auto) Lymph % (Auto) [place] % (Auto) Eos % (Auto) Baso % (Auto) Lymph # (Auto) [place] # (Auto) Eos # (Auto) Baso # (Auto) Absolute Neuts (auto) Sodium Potassium Chloride Carbon Dioxide Anion Gap BUN Creatinine Est GFR ( Amer) Est GFR (Non-Af Amer) POC Glucose (mg/dL) Random Glucose Fasting Glucose Calcium Total Bilirubin AST ALT Alkaline Phosphatase Total Protein Albumin Globulin Albumin/Globulin Ratio Triglycerides Cholesterol LDL Cholesterol Direct HDL Cholesterol TSH 3rd Generation Urine Color Yellow Urine Appearance Clear Urine pH 6.5 Ur Specific [place] 1.025 Urine Protein Trace H Urine Glucose (UA) Negative Urine Ketones Negative Urine Blood Negative Urine Nitrate Negative Urine Bilirubin Negative Urine Urobilinogen 1.0 H Ur Leukocyte Esterase Negative Urine RBC 0 - 2 Urine WBC 2 - 5 Ur Epithelial Cells 4 - 5 Urine Bacteria Mod Salicylates Urine Opiates Screen Negative Urine Methadone Screen Negative Acetaminophen Ur Barbiturates Screen Negative Ur Phencyclidine Scrn Negative Ur Amphetamines Screen Negative U Benzodiazepines Scrn Negative U Oth Cocaine Metabols Negative U Cannabinoids Screen Negative Alcohol, Quantitative < 10 11/14/18 11/14/18 11/14/18 07:00 07:00 07:54 WBC RBC Hgb Hct MCV MCH MCHC RDW Plt Count MPV Neut % (Auto) Lymph % (Auto) [place] % (Auto) Eos % (Auto) Baso % (Auto) Lymph # (Auto) [place] # (Auto) Eos # (Auto) Baso # (Auto) Absolute Neuts (auto) Sodium Potassium Chloride Carbon Dioxide Anion Gap BUN Creatinine Est GFR ( Amer) Est GFR (Non-Af Amer) POC Glucose (mg/dL) 119 H Random Glucose Fasting Glucose 98 Calcium Total Bilirubin AST ALT Alkaline Phosphatase Total Protein Albumin Globulin Albumin/Globulin Ratio Triglycerides 125 Cholesterol 229 H LDL Cholesterol Direct 144 H HDL Cholesterol 51 TSH 3rd Generation 0.54 Urine Color Urine Appearance Urine pH Ur Specific [place] Urine Protein Urine Glucose (UA) Urine Ketones Urine Blood Urine Nitrate Urine Bilirubin Urine Urobilinogen Ur Leukocyte Esterase Urine RBC Urine WBC Ur Epithelial Cells Urine Bacteria Salicylates Urine Opiates Screen Urine Methadone Screen Acetaminophen Ur Barbiturates Screen Ur Phencyclidine Scrn Ur Amphetamines Screen U Benzodiazepines Scrn U Oth Cocaine Metabols U Cannabinoids Screen Alcohol, Quantitative
[2018-11-21] MEDS: Divalproex 500 mg DR(BID formulation) PO SCH ×3 (08:59→21:02)
[2018-11-21] MEDS: Divalproex 250 mg DR (BID formulation) PO SCH (21:11)
[2018-11-22] MEDS: Levothyroxine 50 MCG TAB PO SCH (06:03)
[2018-11-22 07:07] VITALS: RESP 20
[2018-11-22] MEDS: Divalproex 500 mg DR(BID formulation) PO SCH ×2 (08:54→16:52)
--- NOTE | 2018-11-22 09:37 | PCM.PYCHPN ---
Psychiatric Progress Note - Psychiatric Progress Note Patient seen today, length of contact: 25 min Problems Identified/Issues Discussed: PROGRESS NOTE 11/22/18 I reviewed recent staff notes and met with patient at bedside. I am familiar with patient from her prior admission as well as admission interviews last weekend during this hospitalization. She is unkempt however remains well- oriented and organized. Affect appears more reactive and she is more communicative with me than last week. Mood was reported as "depressed, I have been better" on Friday. However on Friday, patient reported that she was feeling more stable and that mood was improving. She also asked about discharge. Patient denies experiencing any hallucinations recently. Last weekend she reported auditory hallucinations, voices that say "f--ked up" though she never appeared to be responding to internal stimuli. Overall, she remains coherent during our interviews though focus is inconsistent and she is not well-related. Staff have noted patient to be more visible, socializing and participating in activities. At times she is sexually preoccupied. There have been no behavioral issues over the weekend thus far. Diagnostic Results: Schizoaffective disorder by hx Medication Change: No ( ) Medical Record Reviewed: Yes Mental Status Examination - Cognitive Function Orientation: Person, Place, Situation Attention: WNL Concentration: WNL Association: Loose Fund of Knowledge: Poor - Mood Mood: Depressed ("more stable"), Anxious - Affect Affect: Constricted (more reactive and communicative), Other (labile) - Speech Speech: Appropriate, Soft - Formal Thought Process Formal Thought Process: Hallucinations (denied all weekend), Loosening of associations (more organized this weekend) - Suicidal Ideation Suicidal Ideation: No - Homicidal Ideation Homicidal Ideation: No Goal/Treatment Plan - Goal/Treatment Plan Need for Continued Stay: Remain at risks for inpatient hospitalization (Plan remains to improve mental status with increasing doses of Abilify before offering injectable form), Severe depression anxiety, Severe functional impairment Progress Toward Problem(s) and Goals/Treatment Plan: * c/w current tx and plan * No new weekend lab results * Considering Abilify Maintenna on Friday11/22/[address] Holbrook's progress note dated 11/20/18 * Vitals reviewed and noted below: Selected Entries 11/21/18 11/21/18 11/21/18 07:00 08:59 15:54 Temperature 97.8 F Pulse Rate 80 80 69 Respiratory 18 Rate Blood Pressure 117/81 117/81 106/68 * Please refer to ER report dated 11/13/18 for physical exam and ROS findings. ADMISSION LABS Laboratory Tests 11/13/18 11/13/18 11/13/18 20:33 20:33 20:33 WBC 7.4 RBC 4.42 Hgb 13.2 Hct 39.2 MCV 88.7 MCH 29.9 MCHC 33.7 RDW 12.2 Plt Count 280 MPV 9.5 Neut % (Auto) 48.7 L Lymph % (Auto) 43.5 H Norman % (Auto) 5.7 Eos % (Auto) 2.0 Baso % (Auto) 0.1 Lymph # (Auto) 3.2 Norman # (Auto) 0.4 Eos # (Auto) 0.2 Baso # (Auto) 0.01 Absolute Neuts (auto) 3.60 Sodium 137 Potassium 3.6 Chloride 99 Carbon Dioxide 29 Anion Gap 13 BUN 17 Creatinine 0.6 L Est GFR ( Amer) > 60 Est GFR (Non-Af Amer) > 60 POC Glucose (mg/dL) Random Glucose 85 Fasting Glucose Calcium 9.1 Total Bilirubin 0.5 AST 31 ALT 17 Alkaline Phosphatase 71 Total Protein 7.2 Albumin 4.1 Globulin 3.1 Albumin/Globulin Ratio 1.3 Triglycerides Cholesterol LDL Cholesterol Direct HDL Cholesterol TSH 3rd Generation Urine Color Urine Appearance Urine pH Ur Specific [place] Urine Protein Urine Glucose (UA) Urine Ketones Urine Blood Urine Nitrate Urine Bilirubin Urine Urobilinogen Ur Leukocyte Esterase Urine RBC Urine WBC Ur Epithelial Cells Urine Bacteria Salicylates < 1 L Urine Opiates Screen Urine Methadone Screen Acetaminophen < 10.0 L Ur Barbiturates Screen Ur Phencyclidine Scrn Ur Amphetamines Screen U Benzodiazepines Scrn U Oth Cocaine Metabols U Cannabinoids Screen Alcohol, Quantitative 11/13/18 11/13/18 11/13/18 20:33 22:55 22:55 WBC RBC Hgb Hct MCV MCH MCHC RDW Plt Count MPV Neut % (Auto) Lymph % (Auto) Norman % (Auto) Eos % (Auto) Baso % (Auto) Lymph # (Auto) Norman # (Auto) Eos # (Auto) Baso # (Auto) Absolute Neuts (auto) Sodium Potassium Chloride Carbon Dioxide Anion Gap BUN Creatinine Est GFR ( Amer) Est GFR (Non-Af Amer) POC Glucose (mg/dL) Random Glucose Fasting Glucose Calcium Total Bilirubin AST ALT Alkaline Phosphatase Total Protein Albumin Globulin Albumin/Globulin Ratio Triglycerides Cholesterol LDL Cholesterol Direct HDL Cholesterol TSH 3rd Generation Urine Color Yellow Urine Appearance Clear Urine pH 6.5 Ur Specific [place] 1.025 Urine Protein Trace H Urine Glucose (UA) Negative Urine Ketones Negative Urine Blood Negative Urine Nitrate Negative Urine Bilirubin Negative Urine Urobilinogen 1.0 H Ur Leukocyte Esterase Negative Urine RBC 0 - 2 Urine WBC 2 - 5 Ur Epithelial Cells 4 - 5 Urine Bacteria Mod Salicylates Urine Opiates Screen Negative Urine Methadone Screen Negative Acetaminophen Ur Barbiturates Screen Negative Ur Phencyclidine Scrn Negative Ur Amphetamines Screen Negative U Benzodiazepines Scrn Negative U Oth Cocaine Metabols Negative U Cannabinoids Screen Negative Alcohol, Quantitative < 10 11/14/18 11/14/18 11/14/18 07:00 07:00 07:54 WBC RBC Hgb Hct MCV MCH MCHC RDW Plt Count MPV Neut % (Auto) Lymph % (Auto) Norman % (Auto) Eos % (Auto) Baso % (Auto) Lymph # (Auto) Norman # (Auto) Eos # (Auto) Baso # (Auto) Absolute Neuts (auto) Sodium Potassium Chloride Carbon Dioxide Anion Gap BUN Creatinine Est GFR ( Amer) Est GFR (Non-Af Amer) POC Glucose (mg/dL) 119 H Random Glucose Fasting Glucose 98 Calcium Total Bilirubin AST ALT Alkaline Phosphatase Total Protein Albumin Globulin Albumin/Globulin Ratio Triglycerides 125 Cholesterol 229 H LDL Cholesterol Direct 144 H HDL Cholesterol 51 TSH 3rd Generation 0.54 Urine Color Urine Appearance Urine pH Ur Specific [place] Urine Protein Urine Glucose (UA) Urine Ketones Urine Blood Urine Nitrate Urine Bilirubin Urine Urobilinogen Ur Leukocyte Esterase Urine RBC Urine WBC Ur Epithelial Cells Urine Bacteria Salicylates Urine Opiates Screen Urine Methadone Screen Acetaminophen Ur Barbiturates Screen Ur Phencyclidine Scrn Ur Amphetamines Screen U Benzodiazepines Scrn U Oth Cocaine Metabols U Cannabinoids Screen Alcohol, Quantitative
[2018-11-22] MEDS: Divalproex 250 mg DR (BID formulation) PO SCH (21:04)
[2018-11-23] MEDS: Levothyroxine 50 MCG TAB PO SCH (06:25)
[2018-11-23 07:09] VITALS: TEMP 98.1
[2018-11-23] MEDS: Divalproex 500 mg DR(BID formulation) PO SCH ×2 (09:21→17:27)
[2018-11-23 15:51] VITALS: BP 144/85; PULSE 84
--- NOTE | 2018-11-23 15:59 | PN ---
DATE: 11/23/2018 SUBJECTIVE: The patient is 48-year-old, seen and examined, doing very well, much better mood, anxious to go home, not crying anymore. PHYSICAL EXAMINATION: VITAL SIGNS: The patient is afebrile, pulse 65, respiration 20, and blood pressure 127/93. LUNGS: Bilateral fair airflow. No rhonchi or crackle. HEART: S1 and S2 audible. ABDOMEN: Soft and nontender. No rebound. No guarding. NEUROLOGIC: The patient is awake and alert; able to communicate. LABORATORY DATA: Blood sugar is 106. Urine tox is negative. ASSESSMENT: 1. History of depression. 2. Hyperlipidemia. 3. Hypothyroidism. PLAN: Currently, the patient is on levothyroxine. I will start small dose of Lipitor. Disposition plan according to the psychiatry team. John Craig MD
[2018-11-23] MEDS ORDERED: ABILIFY MAINTENA 300 MG IM ONE ×2 (18:30)
== END 2018-11-23 19:55 | disposition home or self-care (01) | DRG 885 ==
LOC: ED 18:33 → ERH 23:11 → PSYC 11-14 00:05
PROVIDERS: ADMIT Psychiatry & Neurology Addiction Medicine; ATTEND Psychiatry & Neurology Addiction Medicine
PROC: GZ3ZZZZ Medication Management (ICD-10-PCS; principal; 2018-11-14)
DX: F25.9 Schizoaffective disorder, unspecified (principal); F41.9 Anxiety disorder, unspecified; E11.9 Type 2 diabetes mellitus without complications; E03.9 Hypothyroidism, unspecified; E78.5 Hyperlipidemia, unspecified; I10 Essential (primary) hypertension; Z62.810 Personal history of physical and sexual abuse in childhood; E66.9 Obesity, unspecified; Z68.36 Body mass index [BMI] 36.0-36.9, adult; Z91.19 Patient's noncompliance with other medical treatment and regimen; Z86.11 Personal history of tuberculosis; Z79.890 Hormone replacement therapy